=== PATIENT | female | born 1970 | race Caucasian/White ===

== ENCOUNTER 2024-10-15 14:03 | Emergency (ER) | payer OTHER, SELFPAY ==
--- OUTSIDE RECORDS SUMMARY | 2024-10-15 14:06 | XMS_ITS | Clinical Summary ---
Author Organization [facility] Address [address] [place] [address] Care Team Providers Care District Manager Primary Care Sales Name Role Phone Demetrice Hyde M.D. Primary Care Provider + Source Comments Patient records contain information from all sites at [facility]. For routine questions regarding patient records, call [phone] during business hours, M-F 8:00 AM - 5:00 PM Central Time. Record requests for emergency care only can be directed to [phone] at any time.[facility] Allergies Active Allergy Reactions Criticality Noted Date Comments Omeprazole Nausea Only,GI intolerance Medium 11/20/2011 Heath listed constipation as additional reaction. Medications MULTIVITAMIN ORAL Take 1 tablet by mouth daily. 0 Active Lactobacillus acidophilus capsule Take 1 capsule by mouth daily. Active insulin syringe-needle U-100 1 mL 31 gauge x 5/16 syringe Inject 1 Injection as directed daily. For emergency use in case of insulin pump malfunction. Type 1 DM 10 each 3 9 Active glucose 4 gram chewable tablet Chew 4 g as needed for low blood sugar. Active Guardian 4 Transmitter device 3 Active raloxifene (EVISTA) 60 mg tablet TAKE ONE TABLET BY MOUTH EVERY DAY . 90 tablet 3 4 Active levETIRAcetam (KEPPRA) 750 mg tabletIndications :Seizure Disorder (HCC) Take 1 tablet (750 mg total) by mouth every morning. 90 tablet 3 4 12/21/19 25 Active levETIRAcetam (KEPPRA) 1,000 mg tabletIndications :Seizure Disorder (HCC) Take 1 tablet (1,000 mg total) by mouth every evening. 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 1500 test 3 4 04/11/20 25 Active lisinopriL 10 mg tabletIndications :Hypertension Essential Primary Take 1 tablet (10 mg total) by mouth daily. 90 tablet 3 4 Active insulin aspart U-100 (NovoLOG U-100 Insulin aspart) 100 unit/mL vial USE UP TO 60 UNITS PER DAY VIA PUMP 54 mL 3 4 Active Active Problems Problem Noted Date Diagnosed Date Atrophy Vagina Due To Estrogen Deficiency 2022 Overview (07/29/2023): Related to menopause and raloxifene use. Introitus is becoming more narrowed each consecutive year. Vaginal tissue is erythematous, thin due to this. Discussed the option of using Replens vaginal moisturizer and dilators for management of this. Recommended that she purchase a medium set of dilators and try to use them said she is able to insert a #5 or #6 without difficulty or discomfort. Capsulitis Adhesive Shoulder Left 10/22/2020 Mass Inguinal 07/09/2020 Overview (08/26/2022): Located in the crease of the right inner, upper leg. S/p referral to general surgery, ultrasound ordered to evaluate, findings consistent with lipoma, no change in size, no treatment needed. Cancer Breast Family History 07/09/2020 Overview (08/26/2022): And dense breasts. Biopsy of lesion in March 2020 showed a benign fibroadenoma. She follows with the breast clinic in [place]. Breast clinic recommendations include: 1. Clinical breast exam every six months (last in May 2022) 2. Annual screening mammogram with tomosynthesis 3. Annual screening MRI 4. Start raloxifene - currently taking this 5. 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 Given this history, I would recommend yearly Pap smears for at least 20 years post procedure (until 2027) and then every 3 years after that. Assessment & Plan (01/19/2024 10:26 AM CDT): Continue to follow with gynecology Assessment & Plan (06/03/2023 8:20 AM CDT): Continue with annual pap with breast clinic Cervical Dysplasia Personal History 03/29/2018 Overview (08/20/2021): And history of VAIN 1. See plan noted above. Dyspareunia Female Organic 03/29/2018 Overview (08/26/2022): Related to atrophy. Stable, she does not want to use estrogen of any kind at this time. Discussed the option of laser therapy that can be done at [facility] in [place] but payment out of pocket is required and a series of treatments is needed. She is still considering this and will let us know if she would like to move forward. I would also want to check with ADAPTIVE PHYSICAL EDUCATION TEACHER Oncology regarding how that would affect surveillance in light of her history of VAIN prior to proceeding. In the meantime, she will resume use of Replens. Rx for this was sent today. Menopause 03/12/2014 Overview (08/26/2022): These symptoms are improved and are manageable. Bone density testing was normal. Seizure Disorder 11/27/2010 Overview (08/20/2021): Follows with neurology for this. Assessment & Plan (01/19/2024 10:26 AM CDT): Form filled out today after verifying her history of being seizure-free since 2020. We will fax it to the necessary parties, and a copy was provided. Plan to establish with new neurologist in February. Assessment & Plan (06/03/2023 8:19 AM CDT): Continue Keppra per neurology Diabetes Mellitus Type 1 Without Complication Overview (01/19/2024): Type I [insulin dependent] [IDDM] [juvenile type] Overview: - Diagnosed in 1990 at age 20. - On MDI with good control but frequent hypoglycemia. - On pump since early 2006. - Excellent control. - No complications. Assessment & Plan (01/19/2024 10:26 AM CDT): Continue to follow with endocrinology Assessment & Plan (06/03/2023 8:19 AM CDT): Continue to follow with endocrinology Gastroesophageal Reflux Disease Without Esophagi tis 04/22/2010 Overview (12/01/2017): Overview: EGD 04/2010 normal Resolved Problems Problem Noted Date Diagnosed Date Resolved Date Diabetes Mellitus Type 1 Wit h Other Diabetic Neurologic Complication 10/22/2020 08/20/2021 Sprain Wrist Initial Left 06/28/2019 Fracture Radius Neck Closed Initial Left 06/28/2019 06/03/2023 Benign neoplasm of breast 12/01/2017 Overview (12/01/2017): Overview: fibroadenoma, with atypia . Needs annual mammograms and breast MRI Tumor Bladder 01/04/2015 12/01/2017 Overview (03/03/2017): Tumor Bladder Cervical Dysplasia Personal History 01/09/2014 12/01/2017 Dyspareunia Female 01/09/2014 8 Neoplasia Vagina Intraepithe lial (VAIN) Pers Hx 01/09/2014 12/01/2017 Fibrocystic Breast 11/27/2010 8 Goiter 06/11/2010 12/01/2017 Overview (12/01/2017): Overview: Small symmetrical goiter ~30gms. Encounters Date Type Department Care Team Description 09/21/2024 Orders Only Division of Endocrinology in [place], [place] [address] [place] [phone] Praveena Monge M.B., B.Ch., Ph.D. Diabetes Mellitus Type 1 Without Complication (HCC) (Primary Dx) 08/22/2024 Clinical Communication Breast Diagnostic Clinic in [place], [place] [address] [place] [phone] Krista Camacho M.D. 08/12/2024 Clinical Communication Division of Endocrinology in [place], [place] [address] [place] [address] Praveena Monge M.B., B.Ch., Ph.D. [employer] 08/11/2024 8:00 AM CDT Immunization Department of [facility], [facility], in [place], [place] [address] [place] [phone] Need Vaccine Immunization (Primary Dx) 07/29/2024 8:30 AM CDT Office Visit Department of Obstetrics and Gynecology in [place], [place] [address] [phone] Marva Alexander CNM, D.N.P. Preventive Gynecological Exam (Primary Dx); Atrophy Vagina Due To Estrogen Deficiency; Cancer Breast Family History; Cervical Dysplasia Personal History; Neoplasia Vaginal Intraepithelial Personal History 07/28/2024 Refill Department of Internal Medicine in [place], [place] [address] [place] [phone] Demetrice Hyde M.D. Med Refill 07/26/2024 Refill Department of Family Medicine, [facility], in [place], [place] [address] [place] [address] [place] [phone] Demetrice Hyde M.D. Med Refill from Last 3 Months Immunizations Name Administration Dates Next Due H1N1 Inj 09/21/2009 HepB (discontinued) adolesce nt/high risk 02/28/2013,11/26/2012,09/03/2012 Influenza Split 08/12/2008 Influenza TIV (IM) 07/16/2011, 0,06/22/2009,2007 Influenza, Injectable, Quadrivalent 07/19/2019,0 07/10/2014 Influenza, Unspecified 07/22/2018,2016,07/28/2016,2014,07/11/2013,07/12/2012,07/08/2011 PCV20 06/03/2023 PPSV23 02/24/2022,09/05/2011,08/12/2008 RZV (SHINGRIX) 12/15/2022, 3(Deferred: Other - has not recieved 2nd dose),09/10/2022 SARS-COV-2 (COVID-19) - MODE RNA (12 YEARS AND OLDER) Fall Seasonal 08/11/2024,07/28/2023 SARS-COV-2 (COVID-19) - MODE RNA BIVALENT(Discontinued) 07/01/2022 SARS-COV-2 (COVID-19) - MODERNA(Discontinued) 08/09/2021,01/21/2021,12/19/2020 Td, (Adult) Unspecified 10/12/2004 Tdap 10/21/2021,09/05/2011 influenza trivalent vaccine (6 months and older)(PF) 07/29/2024 influenza vaccine quad (FLUZONE/FLUARIX) (6 months and older)(PF) 07/28/2023,08/11/2022,07/30/2021,2019,07/10/2014 Family History Medical History Relation Name Comments Coronary artery disease Father Galo Avilez H eart attack Prostate cancer Father Galo Avilez Breast cancer Maternal Cousin 1 Cataracts Maternal Grandfather Hypertension Maternal Grandfather Hypertension Maternal Grandmother Cataracts Mother Edelmira Avilez Clotting disorder Mother Edelmira Avilez Diabetes Mother Edelmira Avilez Type 2 Tanya betes Hypertension Mother Edelmira Avilez Thyroid disease Mother Edelmira Avilez Uterine cancer Mother Edelmira Avilze Breast cancer Other 1 Cancer Other 4 Cataracts Paternal Grandfather Nando Avilez Coronary artery disease Paternal Grandfather Nando julian Congestive heart failure Diabetes Paternal Grandfather Nando Avilez Hypertension Paternal Grandfather Nando Avilez Did r eceive treatment Cataracts Paternal Grandmother Hypertension Paternal Grandmother Breast cancer Sister [address] Dr. Caryn Avilez Finished treatment and cancer free Hypertension Sister [address] Dr[address] Caryn Avilez Hypothyroidism Sister [address] Dr[address] Caryn Avilez Thyroid disease Sister [address] Dr[address] Caryn Avilez Breast cancer Sister 2 Zuleyma Duc Finished tr eatment and cancer free Clotting disorder Sister 2 Zuleyma Cobbsedrick pulmona ry blood clot Diabetes Sister 2 Zuleyma Duc Type 2 Relation Name Status Comments Father Galo Avilez (Age 77) d. NM Father's Brother d. cardiac related Maternal Cousin 1 Alive Maternal Cousin 2 Alive possibly B RCA positive Maternal Grandfather Maternal Grandmother Mother Edelmira Avilez Alive Mother's Brother d. cardiac related Niece 1 Alive Niece 2 Alive Other 1 Paternal Great Aunt Other 2 Other 3 Other 4 Alive strong fmhx of cancer on her side of family Paternal Grandfather Nando Avilez Paternal Grandmother Sister [address] Dr. Caryn Avilez Alive negati ve genetic testing Sister 2 Zuleyma Cobbsedrick Alive Social History Tobacco Use Types Packs/Day Years Used Date Smoking Tobacco: Never Passive Smoke Exposure: Never Smokeless Tobacco: Never Tobacco Cessation:Counseling Given: Not Answered Alcohol Use Standard Drinks/Week Comments Never 0 (1 standard drink = 0.6 oz pur e alcohol) [facility] Utilities Answer Date Recorded In the past 12 months has th e Friends Around, gas, oil, or water [employer] threatened to shut off services in your home? No 01/19/2024 Humiliation, Afraid, Rape, and Kick questionnair e Answer Date Recorded Within the last year, have y ou been afraid of your partner or ex-partner? No 11/21/2022 Within the last year, have y ou been humiliated or emotionally abused in other ways by your partner or ex-partner? No Within the last year, have y ou been kicked, hit, slapped, or otherwise physically hurt by your partner or ex-partner? No 11/21/2022 Within the last year, have y ou been raped or forced to have any kind of sexual activity by your partner or ex-partner? No 11/21/2022 Social Connection and Isolat ion Panel [NHANES] Answer Date Recorded In a typical week, how many times do you talk on the phone with family, friends, or neighbors? More than three times a week 11/21/2022 How often do you get togethe r with friends or relatives? Once a week 11/21/2022 How often do you attend chur ch or latter-day services? Never 11/21/2022 Do you belong to any clubs o r organizations such as jehovah's witness groups, unions, fraternal or athletic groups, or school groups? No 11/21/2022 How often do you attend meet ings of the clubs or organizations you belong to? Never 11/21/2022 Are you , , di vorced, , never , or living with a partner? 11/21/2022 AUDIT-C Answer Date Recorded Q1: How often do you have a drink containing alc ohol? Never 11/21/2022 Average Number of Drinks Not on file 023 Frequency of Binge Drinking Not on file 11/12 Overall Financial Resource Strain (CARDIA) Answe r Date Recorded How hard is it for you to pa y for the very basics like food, housing, medical care, and heating? Not hard at all 11/21/2022 PHQ-2 Answer Date Recorded PHQ-2 Score 0 07/29/2024 [facility] - Occupational Stress Questionnaire Answer Date Recorded Do you feel stress - tense, restless, nervous, or anxious, or unable to sleep at night because your mind is troubled all the time - these days? Not at all 11/21/2022 Exercise Vital Sign Answer Date Recorde d On average, how many days pe r week do you engage in moderate to strenuous exercise (like a brisk walk)? 7 days 01/19/2024 On average, how many minutes do you engage in exercise at this level? 30 min 01/19/2024 Hunger Vital Sign Answer Date Recorded Within the past 12 months, y ou worried that your food would run out before you got the money to buy more. Never true 01/19/20 24 Within the past 12 months, t he food you bought just didn't last and you didn't have money to get more. Never true 01/19/2024 PRAPARE - Transportation Answer Date Re corded In the past 12 months, has l ack of transportation kept you from medical appointments or from getting medications? No 06/2024 In the past 12 months, has l ack of transportation kept you from meetings, work, or from getting things needed for daily living? No 01/19/2024 Depression Answer Date Recor ded PHQ-9 Total Score (max 27) 0 07/29 Nutrition Answer Date Recorded On average, how many serving s of fruits and vegetables do you eat per day (serving size is equal to 1 cup or approximately the size of a tennis ball)? 5 or more 01/19/2024 Dental Answer Date Recorded Dental: Regular Dentist Yes 11/29/19 Employment Answer Date Recorded Employment status Employed and actively working without restrictions 01/19/2024 Housing Stability Answer Date Recorded What is your living situation today? [facility] 01/19/2024 Education Answer Date Recorded What is the highest level of school you have completed or the highest degree you have received? Bachelor's degree (e.g., BA, AB, BS) 11/03/2019 Comments No Sex and Gender Information Value Date Recorded Sex Assigned at Female 12/01/2017 8:02 AM [facility]ER Legal Sex Female 12:21 PM T[facility]ER Gender Identity Female 12/01/2017 8:02 AM TALCER Sexual Orientation Straight 12/01/2017 8: 02 AM TALCER Occupation Industry Job Start Date Job End Date [employer] Not on file Not on file N ot on file Last Filed Vital Signs Vital Sign Reading Time Taken Comments Blood Pressure 118/75 07/29/2024 8:06 AM CDT Pulse 64 05/24/2024 3:10 PM CDT Temperature 36.3 C (97.4 F) 01/19/2024 7:41 AM CDT Respiratory Rate 20 09/15/2023 9:22 AM TALCER Oxygen Saturation 99% 09/15/2023 9:22 AM TALCER Inhaled Oxygen Concentration - - Weight 73.1 kg (161 lb 2.5 oz) 07/29/2024 8:06 A M CDT Height 168.5 cm (5' 6.34) 07/29/2024 8:06 AM CD T Body Mass Index 25.75 07/29/2024 8:06 AM CDT Plan of Treatment Upcoming Encounters Date Type Department Care Team (Late st Contact Info) Description 10/21/2024 9:15 AM TALCER Comprehensive Visit Department of Ophthalmology in [place], [place] [address] [place] [phone] Boubacar Alvarado M.D. [address] [phone] 10/25/2024 7:30 AM TALCER Appointment Department of Laboratory Medicine in [place], [place] [address] [phone] Praveena Monge M.B., B.Ch., Ph.D. [address] [place] [phone] 10/25/2024 8:10 AM TALCER Appointment Department of Laboratory Medicine in [place], [place] [address] [phone] Praveena Monge M.B., B.Ch., Ph.D. [address] [place] [phone] 11/04/2024 10:30 AM TALCER Office Visit Division of Endocrinology in [place], [place] [address] [place] [phone] Praveena Monge M.B., B.Ch., Ph.D. [address] [place] [phone] 11/04/2024 1:00 PM TALCER Clinical Support Department of Nutrition and Diabetes Education in [place], [place] [address] [place] [phone] Praveena Monge M.B., B.Ch., Ph.D. [address] [place] [phone] Luzma Portillo R.N. [address] [place] [phone] 11/15/2024 7:00 AM TALCER Clinical Communication Virtual Review in [place], [place] [address] [place] [phone] 11/18/2024 7:30 AM TALCER Appointment Department of Radiology, [facility], in [place], [place] [address] [place] [phone] Krista Camacho M.D. [address] [place] [phone] 11/22/2024 3:30 PM TALCER Office Visit Breast Diagnostic Clinic in [place], [place] [address] [place] [phone] Krista Camacho M.D. [address] [place] [phone] Health Maintenance Due Date Last Done Comments CT Colonography 1972 FIT 1972 Hepatitis C Screening 1972 Diabetes Education 10/15/2021 10/15/2020, 04/20/2014 Diabetic Office Visit with Foot Exam 06/03/2024 06/03/2023, 06/03/2023, 06/24/2022, Additional history exists Dilated Eye Exam 09/28/2024 09/28/2023, , 10/10/2021, Additional history exists Hemoglobin A1C 11/24/2024 05/24/2024, 02/09, 11/12/2023, Additional history exists Visit: Chronic Disease, age 18+ 01/18/2025 01/19/2024, 06/03/2023 Urine Albumin 02/21/2025 02/22/2024, 04/2023, 11/21/2021, Additional history exists Creatinine Level (Kidney Function Test) 05/10/2025 05/10/2024, 02/22/2024, 03/18/2023, Additional history exists Potassium Level 05/10/2025 05/10/2024, 05/0 11/2021, 08/13/2021, Additional history exists Sodium Level 05/10/2025 05/10/2024, 050 11/2021, 08/13/2021, Additional history exists Mammogram 06/03/2025 06/03/2024, 02/2024, 05/21/2023, Additional history exists Office Visit for Blood Pressure Check / Re-check 07/29/2025 07/29/2024 Cologuard 08/30/2025 08/30/2022, 08/26/2022 Colonoscopy 09/15/2026 09/15/2023, 09/15/2023 Colorectal Cancer Screening 09/15/2026 Lipid (Cholesterol) Screening 02/21/2029 02/22/2024, 03/18/2023, 02/27/2022, Additional history exists DTaP,Tdap,and Td Vaccines (3 - Td or Tdap) 10/21/2031 10/21/2021, 09/05/2011, 10/12/2004 Hepatitis B Vaccines Completed 02/28/2013, 11/26/2012, 09/03/2012 HIV Screening Completed 05/17/2019 Zoster Vaccines Completed 12/15/2022, 09/10/2022 Pneumococcal vaccine (50+ years) Completed 06/03/2023, 02/24/2022, 09/05/2011, Additional history exists Depression Screening (Annual PHQ-2) Completed 07/29/2024, 01/19/2024 Influenza Vaccine Completed 07/29/2024, , 08/11/2022, Additional history exists COVID-19 Vaccine Completed 08/11/2024, , 07/01/2022, Additional history exists IPV Vaccines Aged Out No longer eligi ble based on patient's age to complete this topic Medical Devices Implanted Type Area Property Site Manager Device Identifier Shelf Expiration Date Model / Serial / Lot Clp Rsp Hmst Endo 235 - [id number] - [id number] Implanted:Qty: 1 on 09/15/2023 by Santy Canela M.D. at [facility] Silver/[employer]onda Hardware e.g. pins/screw s/rods N/A: Descending Colon [employer] [id number] 03/26/2026 [id number] 10 / [id number] Clp Rsp Hmst Endo 235 - [id number] - [id number] Implanted:Qty: 1 on 09/15/2023 by Santy Canela M.D. at [facility] Silver/[employer] Hardware e.g. pins/screw s/rods N/A: Descending Colon [employer] [id number] 03/26/2026 [id number] 10 / [id number] Imaging Marker Imaging Marker Bilateral: Breast Description:Markers in both breasts. Procedures Procedure Name Priority Date/Time Associated Diagnosis Comments THINPREP W/HPV CO-TEST SCREEN Routine 07/29/2024 9:15 AM CDT Preventive Gynecological Exam Cervical Dysplasia Personal History Neoplasia Vaginal Intraepithelial Personal History HPV VAGINAL DETECT / GENOTYPING PCR Routine 07/29/2024 9:15 AM CDT BI BREAST SCREENING BILATERAL WITH TOMOSYNTHESIS RAD - Routine (most inpatients and all outpatients) 06/03/2024 7:19 AM CDT Screening Mammogram Average Risk Patient HEMOGLOBIN A1C, B Routine 05/24/2024 4:0 5 PM CDT Diabetes Mellitus Type 1 Without Complication (HCC) BASIC METABOLIC PANEL, S/P Routine 05/10/2024 7:42 AM CDT Hypertension Essential Primary ALBUMIN, RANDOM, U Routine 02/22/2024 12:13 PM CDT Diabetes Mellitus Type 1 Without Complication (HCC) LIPID PANEL, S Routine 02/22/2024 11:58 AM CDT Diabetes Mellitus Type 1 Without Complication (HCC) COLONOSCOPY Routine 09/15/2023 7:41 AM T[facility]ER Screening Colon Cancer Average Risk COLOGUARD Routine 08/26/2022 5:45 AM TALCER Screening Cancer Colon HIV-1 P24 AG, HIV-1/2 AB SCRN, P Routine 05/17/2019 7:22 AM CDT Screening Test Laboratory from Last 3 Months or Most Recently Relevant to Health Maintenance Results * HPV Vaginal Detection / Genotyping PCR (07/29/2024 9:15 AM CDT) HPV High Risk type 16, PCR Negative Negative 08/02/2024 2:21 PM CDT [facility] HPV High Risk type 18, PCR Negative Negative 08/02/2024 2:21 PM CDT [facility] HPV other High Risk types, PCR Negative Negative 08/02/2024 2:21 PM CDT [facility] Comment: The following Other High Risk HPV types were not detected: 31, 33, 35, 39, 45, 51, 52, 56, 58, 59, 66, and 68 This test was ordered in the context of a [facility] ADAPTIVE PHYSICAL EDUCATION TEACHER Cytology case; this result should be interpreted within the context of the ADAPTIVE PHYSICAL EDUCATION TEACHER cytology report. ----ADDITIONAL INFORMATION---- Testing was performed using the kanchan HPV assay ([employer] This report is intended for use in clinical monitoring and management of patients. It is not intended for use in medical-legal applications. This test has been modified from the customer experience associate's instructions. Its performance characteristics were determined by [facility] in a manner consistent with CLIA requirements. This test has not been cleared or approved by the U.S. Food and Drug Administration. 07/29/2024 9:15 AM CDT 08/01/2024 8:17 AM CDT Marva Alexander CNM, D.N.P. LAB MICROBIOLOGY - GE NERAL ORDERABLES Final Result [facility] [address] [place] [address] [facility] [address] [place] [address] [place] [address] * ThinPrep w/HPV Co-Test Screen (07/29/2024 9:15 AM CDT) 08/03/2024 4:22 PM CDT [facility] Report electronically signed by ELENITA Chapa (ASCP) I verify that I have examined all relevant slides/materials for the specimen(s) and rendered or confirmed the diagnosis. 08/03/2024 4:22 PM CDT [facility] Gross Description Received specimen in a ThinPrep vial. 08/03/2024 4:22 PM CDT [facility] Pap Test Source Vaginal 4:22 PM CDT [facility] Clinical History wwe 08/03/20 24 4:22 PM CDT [facility] Menstrual Status(LMP, PM, ) PM 08/03/2024 4:22 PM CDT [facility] Hormone Therapy/Contracep tives NO 08/03/2024 4:22 PM CDT [facility] Disclaimer High risk HPV testing, Real-Time Polymerase Chain Reaction (PCR) was performed on the liquid-based cytology specimen at [facility] (CLIA #[id number]), [address] [place] [address]. This test has been modified from the customer experience associate's instructions. Its performance characteristics were determined by [facility] in a manner consistent with CLIA requirements. This test has not been cleared or approved by the U.S. Food and Drug Administration. 08/03/2024 4:22 PM CDT [facility] Interpretation Vaginal (ThinPrep): Satisfactory for Evaluation Excessive cytolysis or autolysis Negative for Intraepithelial Lesion or Malignancy High Risk HPV testing results are NEGATIVE. See specific genotype results below. HPV with Genotyping, PCR, ThinPrep: HPV High Risk Type 16, PCR: NEGATIVE HPV High Risk Type 18, PCR: NEGATIVE HPV other High Risk types, PCR: NEGATIVE Other High Risk HPV types include: 31, 33, 35, 39, 45, 51, 52, 56, 58, 59, 66, and 68. 08/03/2024 4:22 PM CDT [facility] Thin Prep Vial (Vagina) 07/29/2024 9:15 AM CDT 08/01/2024 8:17 AM CDT Marva Alexander CNM, D.N.P. LAB PAP PATHDX ORDERA BLES Final Result Performing Organization Address City/[facility]/ZIP Co de Phone Number [facility] [address] [place] [address], [place] [facility] [address] [facility] [address] [place] [address] * BI Breast Screening Bilateral with Tomosynthesis (06/03/2024 7:19 AM CDT) Anatomical Region Laterality Modality Breast, Breast Imaging RST L OS, Breast Imaging ARZ LOS, Breast Imaging FLA LOS Bilateral Mammography Impressions 06/03/2024 8:56 AM CDT Negative. RECOMMENDATION: Annual Screening Mammogram ASSESSMENT: BI-RADS: 1: Negative. Narrative 06/03/2024 8:56 AM CDT EXAM: BI BREAST SCREENING BILATERAL WITH TOMOSYNTHESIS Current study was evaluated with a Computer Aided Detection (CAD) system. INDICATION: Screening mammogram. COMPARISON: Prior exam(s) were available and reviewed for comparison. DENSITY: d. The breast(s) are extremely dense, which lowers the sensitivity of mammography. FINDINGS: No findings of malignancy. No significant change since prior exam. Procedure Note Mari Michaels M.D. - 06/03/2024 EXAM: BI BREAST SCREENING BILATERAL WITH TOMOSYNTHESIS Current study was evaluated with a Computer Aided Detection (CAD) system. INDICATION: Screening mammogram. COMPARISON: Prior exam(s) were available and reviewed for comparison. DENSITY: d. The breast(s) are extremely dense, which lowers thesensitivity of mammography. FINDINGS: No findings of malignancy. No significant change since priorexam. IMPRESSION: Negative. RECOMMENDATION: Annual Screening Mammogram ASSESSMENT: BI-RADS: 1: Negative. us Krista Camacho M.D. IMG BI PROCEDURES Final Result * (ABNORMAL) Hemoglobin A1c (05/24/2024 4:05 PM CDT) Hemoglobin A1c, B 5.9(H) 4.0 - 5.6 % 05/24/2024 4:50 PM CDT DTL Comment: Hemoglobin A1c values of 5.7-6.4 percent indicate an increased risk for developing diabetes mellitus. In diabetic patients, HbA1c goals should be discussed with healthcare provider. Blood (Blood, Venous) 05/24/2024 4:05 PM CDT 05/24/2024 4:36 PM CDT Praveena Gmaboa, B.Ch., Ph.D. LAB BLOOD ADD-ON Final Result [facility] [address] [place] [address], [facility] [address] [place] [address] * (ABNORMAL) Basic Metabolic Panel (05/10/2024 7:42 AM CDT) Potassium, P 5.0 3.6 - 5.2 mmol/L 05/10/2024 10:09 AM CDT OWAT Sodium, P 141 135 - 145 mmol/L 05/10/2024 10:09 AM CDT OWAT Chloride, P 106 98 - 107 mmol/L 05/10/2024 10:09 AM CDT OWAT Bicarbonate, P 26 22 - 29 mmol/L 05/10/2024 10:09 AM CDT OWAT Anion Gap, P 9 7 - 15 05/10/2024 10:09 AM CDT OWAT BUN (Blood Urea Nitrogen), P 16 6 - 21 mg/dL 05/10/2024 10:09 AM CDT OWAT Creatinine 0.66 0.59 - 1.04 mg/dL 05/10/2024 10:09 AM CDT OWAT Estimated GFR (eGFR) >90 >=60 mL/min/BSA 05/10/2024 10:09 AM CDT OWAT Comment: Estimated GFR calculated using the 2020 CKD_EPI creatinine equation. Calcium, Total, P 9.1 8.6 - 10.0 mg/dL 05/10/2024 10:09 AM CDT OWAT Glucose, P 144(H) 70 - 140 mg/dL 05/10/2024 10:09 AM CDT OWAT Blood (Blood, Venous) 05/10/2024 7:42 AM CDT 05/10/2024 7:43 AM CDT us Demetrice Hyde M.D. LAB BLOOD ADD-ON Final R esult Performing Organization Address City/[facility] Co de Phone Number [facility] [address] [address], [place] OWAT [facility] in [place] [address] [place] [address] * (ABNORMAL) Albumin, Random, Urine (02/22/2024 12:13 PM CDT) Albumin, Random, U <5.0 mg/L 2023 8:47 AM CDT DTL Comment: ----ADDITIONAL INFORMATION---- This test has been modified from the customer experience associate's instructions. Its performance characteristics were determined by [facility] in a manner consistent with CLIA requirements. This test has not been cleared or approved by the U.S. Food and Drug Administration. Creatinine 17 mg/dL 02/22/2024 1:57 PM CDT DTL Albumin/Creatinine Ratio <29(H) <25 mg/g 02/23/2024 8:47 AM CDT DTL Comment: This ratio may not correspond with the reference range because one or both of the values used to calculate the ratio was above or below the quantification limits. Urine (Urine, Midstream) 02/22/2024 12:13 PM CDT 02/22/2024 1:51 PM CDT us Praveena Gamboa, B.Ch., Ph.D. LAB URINE ORDERA BLES Final Result Performing Organization Address City/[facility]/ZIP Co de Phone Number [facility] [address] [place] [address], [facility] DTL [facility] [address] [place] [address] * Lipid Panel (02/22/2024 11:58 AM CDT) Triglycerides 42 mg/dL 02/22/2024 1:06 PM CDT DTL Comment: ----REFERENCE VALUE---- Normal: <150 mg/dL Borderline High: 150-199 mg/dL High: 200-499 mg/dL Very High: > or =500 mg/dL Cholesterol, Total 136 mg/dL 2023 1:06 PM CDT DTL Comment: ----REFERENCE VALUE---- Desirable: < 200 mg/dL Borderline High: 200 - 239 mg/dL High: > or = 240 mg/dL Cholesterol, LDL, Calculated 42 mg/dL 02/22/2024 1:06 PM CDT DTL Comment: ----REFERENCE VALUE---- Desirable: <100 mg/dL Above Desirable: 100-129 mg/dL Borderline High: 130-159 mg/dL High: 160-189 mg/dL Very High: >=190 mg/dL ----ADDITIONAL INFORMATION---- LDL cholesterol calculated using the Keating/NIH equation. Cholesterol, HDL, S 84 >=50 mg/dL 02/22/2024 1:06 PM CDT DTL Cholesterol, Non-HDL, Calculated 52 mg/dL 02/22/2024 1:06 PM CDT DTL Comment: ----REFERENCE VALUE---- Desirable: <130 mg/dL Above Desirable: 130-159 mg/dL Borderline High: 160-189 mg/dL High: 190-219 mg/dL Very High: > or =220 mg/dL Fasting (8 HR or more) No 02/22/2024 12:37 PM CDT DTL Blood (Blood, Venous) 02/22/2024 11:58 AM CDT 02/22/2024 12:37 PM CDT Praveena Gamboa, B.Ch., Ph.D. LAB BLOOD ADD-ON Final Result [facility] [address] [place] [address], [place] DTL [facility] [address] [place] [address] * Cologuard-Sent Out Lab (08/26/2022 5:45 AM TALCER) Result Negative Negative 08/30/2022 9:22 AM TALCER EXLI Comment: NEGATIVE TEST RESULT. A negative Cologuard result indicates a low likelihood that a colorectal cancer (CRC) or advanced adenoma (adenomatous polyps with more advanced pre-malignant features) is present. The chance that a person with a negative Cologuard test has a colorectal cancer is less than 1 in 1500 (negative predictive value >99.9%) or has an advanced adenoma is less than 5.3% (negative predictive value 94.7%). These data are based on a prospective cross-sectional study of 10,000 individuals at average risk for colorectal cancer who were screened with both Cologuard and colonoscopy. (Donald Solares al, N Engl J Med 2014;370(14):2493-7877) The normal value (reference range) for this assay is negative. COLOGUARD RE-SCREENING RECOMMENDATION: Periodic colorectal cancer screening is an important part of preventive healthcare for asymptomatic individuals at average risk for colorectal cancer. Following a negative Cologuard result, the [place] Cancer Society and U.S. Multi-Society Task Force screening guidelines recommend a Cologuard re-screening interval of 3 years. References: [place] [employer] Society Guideline for Colorectal Cancer Screening: https://www.cancer.org/cancer/khrnv-ubhuks-mqiyvh/detection- diagnosis-staging/acs-recommendations.html.; Ponce PEACOCK, Umang STRONG, Taty StoutK, Colorectal Cancer Screening: Recommendations for Physicians and Patients from the U.S. Multi-Society Task Force on Colorectal Cancer Screening , Am J Gastroenterology 2017; 112:8980-0149. TEST DESCRIPTION: Composite algorithmic analysis of stool DNA-biomarkers with hemoglobin immunoassay. Quantitative values of individual biomarkers are not reportable and are not associated with individual biomarker result reference ranges. Cologuard is intended for colorectal cancer screening of adults of either sex, 45 years or older, who are at average-risk for colorectal cancer (CRC). Cologuard has been approved for use by the U.S. FDA. The performance of Cologuard was established in a cross sectional study of average-risk adults aged 50-84. Cologuard performance in patients ages 45 to 49 years was estimated by sub-group analysis of near-age groups. Colonoscopies performed for a positive result may find as the most clinically significant lesion: colorectal cancer [4.0%], advanced adenoma (including sessile serrated polyps greater than or equal to 1cm diameter) [20%] or non- advanced adenoma [31%]; or no colorectal neoplasia [45%]. These estimates are derived from a prospective cross-sectional screening study of 10,000 individuals at average risk for colorectal cancer who were screened with both Cologuard and colonoscopy. (Donald Solares al, N Engl J Med 2014;370(14):0636-2232.) Cologuard may produce a false negative or false positive result (no colorectal cancer or precancerous polyp present at colonoscopy follow up). A negative Cologuard test result does not guarantee the absence of CRC or advanced adenoma (pre-cancer). The current Cologuard screening interval is every 3 years. ([place] Cancer Society and U.S. Multi-Society Task Force). Cologuard performance data in a 10,000 patient pivotal study using colonoscopy as the reference method can be accessed at the following location: www.[employer]/results. Additional description of the Cologuard test process, warnings and precautions can be found at www.[employer].com. Stool (Stool) 08/26/2022 5:4 5 AM TALCER 08/27/2022 12:31 PM TALCER us Angelique Lopez M.D. LAB BODY FLUIDS AND STOOL S ORDERABLES Final Result [facility] [address] [place] [address] EXLI [employer] [address] [facility], [address] [place] [address] * HIV-1 p24 Ag, HIV-1/2 Ab Scrn, P (05/17/2019 7:22 AM CDT) HIV Ag/Ab Screen, P Negative Negative 05/17/2019 4:31 PM CDT Comment: Negative result does not rule out HIV infection. If exposure to HIV infection occurred <14 days ago, contact the laboratory to request addition of HIV-1 RNA detection / quantification test. HIV-1 p24 Ag Screen, P Negative Negative 05/17/2019 4:31 PM CDT Comment: Negative result does not rule out HIV infection. If exposure to HIV infection occurred <14 days ago, contact the laboratory to request addition of HIV-1 RNA detection / quantification test. HIV-1 Ab Screen, P Negative Negative 2018 4:31 PM CDT Comment: Negative result does not rule out HIV infection. If exposure to HIV infection occurred <14 days ago, contact the laboratory to request addition of HIV-1 RNA detection / quantification test. HIV-2 Ab Screen, P Negative Negative 2018 4:31 PM CDT Comment: Negative result does not rule out HIV infection. If exposure to HIV infection occurred <14 days ago, contact the laboratory to request addition of HIV-1 RNA detection / quantification test. Blood (Blood, Venous) 05/17/2019 7:22 AM CDT 05/17/2019 3:13 PM CDT Umesh Mathis M.D. LAB MICROBIOLOGY - BLOOD ORDERA BLES Final Result [facility] [address] [place] [address], [facility] from Last 3 Months or Most Recently Relevant to Health Maintenance Insurance [id number] [place] [id number] [employer] Care Teams District Manager Primary Care Sales Relationship Specialty Start Date End Date Demetrice Hyde M.D. [address], [place] [phone] PCP - General 11/06/22
--- OUTSIDE RECORDS SUMMARY | 2024-10-15 14:06 | XMS_ITS | Encounter Summary ---
Author Organization [facility] Address [address] [place] [address] Care Team Providers Care Director Public Name Role Phone Demetrice Hyde M.D. Primary Care Provider + Reason for Referral * MRI/CAT/PET Scan (Routine) - Authorized Specialty Diagnoses / Procedures Referred By Contac t Referred To Contact Radiology Diagnoses Cancer Breast Family History Mammographic Extreme Density, Bilateral Breasts Procedures MR Breast Bilateral without and with IV Contrast MS MRI BREAST WOW CNTRST W/CAD BILAT Krista Camacho M.D. [address] [place] [phone] Phone: tel: fax: [facility] Referral ID Status Reason Start Date Expiration Date V isits Requested Visits Authorized [id number] Authorized 08/24/2024 08/24/2025 1 1 BLE OPERATOR Encounter Details Date Type Department Care Team (Late st Contact Info) Description 08/22/2024 Clinical Communication [facility] in [place], [place] [address] [place] [phone] Krista Camacho M.D. [address] [place] [phone] Social History Tobacco Use Types Packs/Day Years Used Date Smoking Tobacco: Never Passive Smoke Exposure: Never Smokeless Tobacco: Never Alcohol Use Standard Drinks/Week Comments Never 0 (1 standard drink = 0.6 oz pur e alcohol) [facility] Utilities Answer Date Recorded In the past 12 months has th e electric, gas, oil, or water company threatened to shut off services in your [...] often do you attend chur ch or congregational services? Never 11/21/2022 Do you belong to any clubs o r organizations such as sikhism groups, unions, fraternal or athletic groups, or [...] Answer Date Recorded PHQ-2 Score 0 07/29/2024 [facility] [employer] ional [facility] - Occupational Stress Questionnaire Answer Date Recorded [...] your living situation today? I have a [facility] place to live 01/19/2024 Education Answer Date Recorded What is the highest level of school you have completed or the highest degree you have received? 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 [address] [place] [phone] 10/25/2024 7:30 AM TROUBLE OPERATOR Appointment Department of Laboratory Medicine in [place], [place] [address] [place] [place] [phone] Praveena Monge M.B., B.Ch., Ph.D. [address] [place] [phone] 10/25/2024 8:10 AM TROUBLE OPERATOR Appointment Department of Laboratory Medicine in [place], [place] [address] [place] [place] [phone] Praveena Monge M.B., B.Ch., Ph.D. [address] [place] [phone] 11/04/2024 10:30 AM TROUBLE OPERATOR Office Visit Division of Endocrinology in [place], [place] [address] [place] [phone] Praveena Monge M.B., B.Ch., Ph.D. [address] [place] [phone] 11/04/2024 1:00 PM TROUBLE OPERATOR Clinical Support Department of Nutrition and Diabetes Education in [place], [place] [address] [place] [phone] Praveena Monge M.B., B.Ch., Ph.D. [address] [place] [phone] Luzma Portillo R.N. [address] [place] [phone] 11/15/2024 7:00 AM TROUBLE OPERATOR Clinical Communication Virtual Review in [place], [place] [address] [place] [phone] 11/18/2024 7:30 AM TROUBLE OPERATOR Appointment Department of Radiology, [facility], in [place], [place] [address] [place] [phone] Krista Camacho M.D. [address] [place] [phone] 11/22/2024 3:30 PM TROUBLE OPERATOR Office Visit Breast Diagnostic Clinic in [place], [place] [address] [place] [phone] Krista Camacho M.D. [address] [place] [phone] Scheduled Orders Name Type Priority Associated Diagnoses Orde r Schedule MR Breast Bilateral without and with IV Contrast Imaging RAD - Routine (most inpatients and all outpatients) Cancer Breast Family History Mammographic Extreme Density, Bilateral Breasts Expected: 11/22/2024, Expires: 11/22/2025 documented as of this encounter Visit Diagnoses Diagnosis Cancer Breast Family History- Primary Mammographic Extreme Density, Bilateral Breasts documented in this encounter Additional Health Concerns Assessment Noted Time PHQ-9 Depression Total Score: 0 07/29/20 24 8:08 AM CDT documented as of this encounter Care Teams Director Public Relationship Specialty Start Date End Date Demetrice Hyde M.D. [address] [place] [phone] PCP - General 11/06/22 documented as of this encounter
--- OUTSIDE RECORDS SUMMARY | 2024-10-15 14:06 | XMS_ITS | Clinical Summary ---
Author Organization [facility] [employer] Address [place], [place] [address] Care Team Providers Care Packaging Engineer Name Role Phone Eleni Bunn NP Unavailable Jeovany Chester MD Unavailable Irma Cherry MD Unavailable Juan Jose Garcia MD Unavailable Brendon Romeo MD Unavailable Marva Sims MD Unavailable [phone] Britany Bernal Unavailable Jon Davey MD Unavailable Unavailable Meng Lopez MD Unavailable Unavail able Henrietta Pugh ENTRY LEVEL ACCOUNT REPRESENTATIVE Primary Care Provider Allergies Active Allergy Reactions Criticality Noted Date Comments Omeprazole Nausea Only,Constipation 06/26/2014 Medications MULTIVITAMIN TAB take 1 tablet by oral route once daily with food 0 02/25/20 07 Active GLUCAGON EMERGENCY 1 MG INJECTION KITIndications:T ype I (juvenile type) diabetes mellitus without mention of complication, not stated as uncontrolled use as directed 2 prn 11/17/19 09 Active KEPPRA 250 MG TAB take 2 tablets (500 mg) by oral route 2 times per day 0 03/27/20 09 Active lisinopril (PRINIVIL; ZESTRIL) 10 mg tablet TAKE 1 TABLET BY MOUTH EVERY DAY 90 tablet 0 07/29/20 10 Active guaiFENesin (MUCINEX) 600 mg Extended-Release tablet Take 1 tablet by mouth 2 times daily. 40 tablet 11/09/2017 4:00 PM CORPORATE PLANNER 11/09/19 18 Active acetaminophen (TYLENOL) 325 mg tablet Take 650 mg by mouth every 6 hours. Active glucose 4 gram chewable tablet Take 4 g by mouth each time if needed. Active insulin aspart U-100 (NOVOLOG) 100 unit/mL injection USE UP TO 60 UNITS PER DAY VIA PUMP 12/08/19 20 Active LACTOBACILLUS ACIDOPHILUS ORAL Take 1 capsule by mouth once daily. Active atorvastatin (LIPITOR) 20 mg tablet Take 20 mg by mouth once daily. Active HYDROcodone-acet aminophen (NORCO) 5-325 mg per tabletIndication s:Adhesive capsulitis of left shoulder Take 1-2 Tablets by mouth every 4 hours if needed for Pain Max acetaminophen dose: 4000 mg in 24 hrs. 30 Tablet 12/25/19 21 Active Active Problems Problem Noted Date Diagnosed Date Goiter 06/11/2010 Overview (06/11/2010): Small symmetrical goiter ~30gms. GERD (gastroesophageal reflux disease) 0 Overview (04/22/2010): EGD 04/2010 normal Seizure disorder 08/15/2009 Hirsutism 01/09/2009 Unspecified essential hypertension 03/24/2007 Type I (juvenile type) diabe wong mellitus without mention of complication, not stated as uncontrolled Overview (01/02/2009): - Diagnosed in 1990 at age 20. - On MDI with good control but frequent hypoglycemia. - On pump since early 2006. - Excellent control. - No complications. 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 Needs annual mammograms and breast MRI Resolved Problems Problem Noted Date Diagnosed Date Resolved Date OCD (obsessive compulsive disorder) 01/23/2009 09/21/2009 Anxiety state, unspecified 01/23/2009 1 11/22/2008 Syncope and collapse 01/02/2009 009 Overview (05/01/2009): - Neuro eval * Brain MRI 12/18: normal * awake EEG 12/18: normal - Cardiac Eval * echo 12/22/08: normal EF and valves * event monitor: SR to ST - no preceeding symptoms: has had loss of bladder function Later evaluation at [facility] felt these symptoms all from seizure SVT (supraventricular tachycardia) 12/26/2008 05/01/2009 Type I (juvenile type) diabe wong mellitus without mention of complication, not stated as uncontrolled 03/24/2007 02/08/2008 Immunizations Name Administration Dates Next Due AMB INFLUENZA, IIV4 (AGE=>6M OS) MDV (Flu Clinic Only) 07/22/2018 AMB Influenza, IIV4 PF (=>6 mos Flulaval,Fluzone Fluarix)(Flu Clinic Only) 07/19/2019,07/10/2014 DTaP 09/05/2011 Hepatitis B (Adult) 02/28/2013,11/26/2012,2011 Influenza A (H1N1), Inactiva diana (Age >=3 Years) 09/21/2009 Influenza, IIV3 (Age >=3 years) 07/28/20 16,07/14/2013,07/16/2011,2009,06/22/2009,07/21/2008,08/11/2007(D eferred: Patient Refused - pt left) Pneumococcal Poly,23-Valent (Pneumovax) 09/05/2011 Td (Age >=7 Years) 10/12/2004 Family History Medical History Relation Name Comments Other Father prostate 67 yea rs old Hypertension Maternal Grandmother Diabetes Mother type II Hypertension Mother Cancer-breast No Family History Relation Name Status Comments Father Alive Maternal Grandmother Mother Alive Sister Alive x2 Social History Tobacco Use Types Packs/Day Years Used Date Smoking Tobacco: Never Smokeless Tobacco: Never Tobacco Cessation:Counseling Given: No Comments:never Alcohol Use Standard Drinks/Week Comments No 0 (1 standard drink = 0.6 oz pur e alcohol) Comments No Sex and Gender Information Value Date Recorded Sex Assigned at Not on file Legal Sex Female 7:18 AM CORPORATE PLANNER Gender Identity Not on file Sexual Orientation Not on file Occupation Industry Job Start Date Job End Date student Not on file Not on file Not on file Obstetrics History Para Term AB IAB SAB Ectopic Multiple Livin g Live Births 0 0 Comments menarche-14AGE OF [place]: 14 years old LMP: 9-08 Last Filed Vital Signs Vital Sign Reading Time Taken Comments Blood Pressure 109/70 12/24/2020 8:48 AM CDT Pulse 61 12/24/2020 8:48 AM CDT Temperature 36.6 C (97.9 F) 12/24/2020 8:17 AM CDT Respiratory Rate 16 12/24/2020 8:48 AM CDT Oxygen Saturation 94% 12/24/2020 8:48 AM CDT Inhaled Oxygen Concentration - - Weight 71.3 kg (157 lb 1.6 oz) 12/24/2020 6:18 A M CDT Height 167.6 cm (5' 5.98) 12/24/2020 6:18 AM CD T Body Mass Index 25.37 12/24/2020 6:18 AM CDT Plan of Treatment Health Maintenance Due Date Last Done Comments HIV for age 15-65 1987 Hepatitis C screening for age 18-79 1990 Pap test for age 21-65 05/28/2013 0, 05/28/2010, 03/27/2009 Tetanus booster 10/12/2014 10/12/2004 Depression screening for age 12+ 04/30/2017 04/30/2016 Colonoscopy through age 75 2017 Lipids for age 45-75 2017 04/18/2010, 01/03/2010, 01/03/2009, Additional history exists Mammogram for age 45-75 2017 02/14/20 11, 03/29/2009, 06/26/2008 BMI (ht and wt on same day) for age 18+ 11/17/2017 11/17/2016 Pneumococcal series for age 50+ (2 of 2 - PCV) 2022 09/05/2011 Zoster (shingles) series for age 50+ (1 of 2) 2022 COVID-19 vaccine series ( season) 2024 07/28/2023, 07/01/2022, 08/09/2021, Additional history exists Influenza for age 50-64 06/12/2024 07/19/20 19, 07/22/2018, 07/28/2016, Additional history exists Pneumococcal series for age 6-49 Aged Out 09/05/2011 No longer eligible based on patient's age to complete this topic Tdap Completed 09/05/2011 (Comp leted outside of [facility]) Procedures Procedure Name Priority Date/Time Associated Diagnosis Comments XR MAMMO BILAT SCREEN FFDM (IA) Routine 02/13/2011 6:48 PM CDT CV/CVN CV TSC SYSTEM OPERATOR THIN PREP PAP DIAGNOSTIC IMAGED Routine 05/28/2010 10:23 AM CDT LGSIL (low grade squamous intraepithelial lesion) on Pap smear LIPID PANEL Routine 04/18/2010 7:19 AM CDT Lipid screening from Last 3 Months or Most Recently Relevant to Health Maintenance Results * XR MAMMO BILAT SCREEN FFDM (02/13/2011 6:48 PM CDT) Anatomical Region Laterality Modality BREASTS, Breast Left, Breast Right Bilateral Mammography Impressions 02/21/2011 1:27 PM CDT There is no radiographic evidence for malignancy. Recommend annual mammograms. A lay language report of this examination will be provided to the patient. MAMMOGRAM ASSESSMENT: ACR 2 Benign Narrative 02/21/2011 1:27 PM CDT XR MAMMO BILAT SCREEN FFDM [G0202.0] CLINICAL HISTORY: This is an asymptomatic 40 y.o. patient. INDICATION FOR EXAM: Mammogram Screening. TECHNIQUE: CC & MLO views were obtained. This digital study was evaluated with the assistance of Computer-Aided Detection. COMPARISON FILMS: Yes 04/03/10 [facility] FINDINGS: Mammographically, the breast tissue is heterogeneously dense, which could obscure detection of small masses (approximately 51% - 75% glandular). No suspicious masses or microcalcifications. Post surgical changes within both breasts. Procedure Note Maria Elena Glass MD - 02/21/2011 XR MAMMO BILAT SCREEN FFDM [G0202.0] CLINICAL HISTORY: This is an asymptomatic 40 y.o. patient. INDICATION FOR EXAM: Mammogram Screening. TECHNIQUE: CC & MLO views were obtained. This digital study was evaluatedwith the assistance of Computer-Aided Detection. COMPARISON FILMS: Yes 04/03/10 [facility] FINDINGS: Mammographically, the breast tissue is heterogeneously dense,which could obscure detection of small masses (approximately 51% - 75%glandular). No suspicious masses or microcalcifications. Post surgicalchanges within both breasts. IMPRESSION: There is no radiographic evidence for malignancy. Recommendannual mammograms. A lay language report of this examination will be provided to the patient. MAMMOGRAM ASSESSMENT: ACR 2 Benign us Marva Sims MD MAMMO Final Result * (ABNORMAL) CV/CVN CV TSC SYSTEM OPERATOR THIN PREP PAP DIAGNOSTIC IMAGED (05/28/2010 10:23 AM CDT) CYTOLOGY CYTOPATHOLOGY REPORT [facility] Status: Final Status [id number] CLINICAL INFORMATION Last Date of LMP :summer 2008 Last Pap Date :03/27/2009 Last Pap Result :LSIL ABN Delta/Bx Past 5 YRS :HSIL Hormone Usage :None Menstrual Status :Hyst-cervix absent Delta/Bx done today :No Additional Information :None given HPV Request :HPV if ASCUS ANCILLARY TESTING :HPV testing ordered. See Separate Report. SPECIMEN SOURCE :Cervical/vagina l ThinPrep Vial, diagnostic SPECIMEN ADEQUACY :Satisfactory for evaluation INTERPRETATION/R ESULT Atypical squamous cells of undetermined significance (ASCUS) Cytology 1st Screener :cmm Signed by : Nikole Ramey M.D. This specimen was screened by the FDA approved ThinPrep Imaging System and manually reviewed. NOTE: The Pap test is a screening technique, not a diagnostic procedure. It is used primarily to screen for squamous cancers and precursor lesions. Published studies have shown that it is subject to both false negative and false positive results. The pap test should not be used as the sole means to diagnose or exclude pre-malignant and malignant lesions. COLLECTED: ACCESSIONED: 05/29/10 SIGNED: 06/03/10 [facility] PAP [place] CODE ASCUS [facility] Cervical/Vaginal (Cervical/Vagina l) 05/28/2010 10:23 AM CDT 05/28/2010 10:16 AM CDT us Britany BELTRÁN PATHOLOGY/CYTOLOGY Final R esult [facility] INTERNAL ZIP [address] [place] [id number] * LIPID (04/18/2010 7:19 AM CDT) CHOLESTEROL,TOTAL 137 110 - 199 mg/dL [facility] TRIGLYCERIDES 60 <150 mg/dL [facility] HDL CHOLESTEROL 61 >40 mg/dL [facility] CHOL/HDL RATIO 2.25 <4.51 [facility] LDL CHOLESTEROL 64 <131 mg/dL [facility] PATIENT STATUS Fasting [facility] Blood specimen (specimen) BLOOD SPECIMEN / Unknown 04/18/2010 7:19 AM CDT 04/18/2010 7:14 AM CDT us Marva Sims MD CHEMISTRY Final Result [facility] [address] [place] [address] from Last 3 Months or Most Recently Relevant to Health Maintenance Insurance [facility] [id number] [place] [id number] [facility] Advance Directives * Full Code (Latest Code Status on File) Date Activated Date Inactivated Comments 12/24/2020 5:55 AM 12/24/2020 11:05 AM Question Answer Comments Code Status Discussion: Per Existing Order * Full Code Date Activated Date Inactivated Comments 11/21/2016 5:59 AM 11/21/2016 4:05 PM * Full Code Date Activated Date Inactivated Comments 06/28/2014 7:30 PM 06/29/2014 11:45 AM * Full Code Date Activated Date Inactivated Comments 06/28/2014 12:26 PM 06/28/2014 7:30 PM * Full Code Date Activated Date Inactivated Comments 01/02/2009 5:07 PM 01/06/2009 5:24 PM Care Teams Packaging Engineer Relationship Specialty Start Date End Date Henrietta Pugh NP [address] [facility] [place] [address] PCP - General Nurse Practitioner 11/18/16 Eleni Bunn NP [facility] 05/12/11 Jeovany Chester MD [address] [place] [address] [facility] 05/12/11 Irma Cherry MD [address] [place] [address] [facility] 05/12/11 Juan Jose Garcia MD [address] [place] [id number] [facility] 05/12/11 Brendon Romeo MD [address] [place] [address] Internal Medicine 05/12/11 Marva Sims MD [address] [place] [id number] Unknown Physician Specialty 05/12/11 Britany Bernal PA [address] [place] [address] [facility] 05/12/11 [place] [address] [address] [facility] [address] [place] [address] Ophthalmology Surgery 05/12/11 [place] [address] [address] [facility] [address] [place] [address] [facility] 05/12/11
--- OUTSIDE RECORDS SUMMARY | 2024-10-15 14:06 | XMS_ITS | Encounter Summary ---
Author Organization [facility] Address [address] [place] [address] Care Team Providers Care Corporate Vp Advertising & Online Name Role Phone Demetrice Hyde M.D. Primary Care Provider + Reason for Referral * Specialty Diagnoses / Procedures Referred By Contac t Referred To Contact Diagnoses Diabetes Mellitus Type 1 Without Complication (HCC) Praveena Monge M.B., B.Ch., Ph.D. [address] [place] [phone] Phone: tel: fax: [facility] Referral ID Status Reason Start Date Expiration Date Visits Re quested Visits Authorized AR ATTENDANT Encounter Details Date Type Department Care Team (Late st Contact Info) Description 09/21/2024 Orders Only Division of Endocrinology in [place], [place] [address] [place] [phone] Praveena Monge M.B., B.Ch., Ph.D. [address] [place] [phone] Diabetes Mellitus Type 1 Without Complication (HCC) (Primary Dx) Social History Tobacco Use Types Packs/Day Years Used Date Smoking Tobacco: Never Passive Smoke Exposure: Never Smokeless Tobacco: Never Alcohol Use Standard Drinks/Week Comments Never 0 (1 standard drink = 0.6 oz pur e alcohol) [facility] Utilities Answer Date Recorded In the [...] often do you attend chur ch or zoroastrianism services? Never 11/21/2022 Do you belong to any clubs o r organizations such as baptist groups, unions, fraternal or athletic groups, or [...] Answer Date Recorded PHQ-2 Score 0 07/29/2024 [facility] - Occupational Stress [...] your living situation today? [facility] live 01/19/2024 Education Answer Date Recorded What is the highest level of school you have completed or the highest degree you have received? 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 [address] [place] [phone] 10/25/2024 7:30 AM HANGAR ATTENDANT Appointment Department of Laboratory Medicine in [place], [place] [address] [place] [phone] Praveena Monge M.B., B.Ch., Ph.D. [address] [place] [phone] 10/25/2024 8:10 AM HANGAR ATTENDANT Appointment Department of Laboratory Medicine in [place], [place] [address] [place] [phone] Praveena Monge M.B., B.Ch., Ph.D. [address] [place] [phone] 11/04/2024 10:30 AM HANGAR ATTENDANT Office Visit Division of Endocrinology in [place], [place] [address] [place] [phone] Praveena Monge M.B., B.Ch., Ph.D. [address] [place] [phone] 11/04/2024 1:00 PM HANGAR ATTENDANT Clinical Support Department of Nutrition and Diabetes Education in [place], [place] [address] [place] [phone] Praveena Monge M.B., B.Ch., Ph.D. [address] [place] [phone] Luzma Portillo R.N. [address] [place] [phone] 11/15/2024 7:00 AM HANGAR ATTENDANT Clinical Communication Virtual Review in [place], [place] 200 [place] [phone] 11/18/2024 7:30 AM HANGAR ATTENDANT Appointment Department of Radiology, [facility], in [place], [place] [address] [place] [phone] Krista Camacho M.D. [address] [place] [phone] 11/22/2024 3:30 PM HANGAR ATTENDANT Office Visit Breast Diagnostic Clinic in [place], [place] [address] [place] [phone] Krista Camacho M.D. [address] [place] [phone] Scheduled Referrals Name Type Priority Associated Diagnoses Orde r Schedule Nutrition - simulation educator visit (clinic) Outpatient Referral Routine Diabetes Mellitus Type 1 Without Complication (HCC) Expected: 09/21/2024, Expires: 09/21/2025 documented as of this encounter Visit Diagnoses Diagnosis Diabetes Mellitus Type 1 Without Complication (HCC)- Primary documented in this encounter Additional Health Concerns Assessment Noted Time PHQ-9 Depression Total Score: 0 07/29/20 24 8:08 AM CDT documented as of this encounter Care Teams Corporate Vp Advertising & Online Relationship Specialty Start Date End Date Demetrice Hyde M.D. [address] [phone] PCP - General 11/06/22 documented as of this encounter
--- OUTSIDE RECORDS SUMMARY | 2024-10-15 14:06 | XMS_ITS | Encounter Summary ---
Author Organization [facility] Address [address] [place] [address] Care Team Providers Care Loft Patternmaker Name Role Phone Demetrice Hyde M.D. Primary Care Provider + Encounter Details Date Type Department Care Team (Late st Contact Info) Description 08/12/2017 Historical Ophthalmology [facility] Boubacar Alvarado M.D. [address] [phone] Social History Tobacco Use Types Packs/Day Years Used Date Smoking Tobacco: Never Comments No Sex and Gender Information Value Date Recorded Sex Assigned at Female 12/01/2017 8:02 AM ADMINISTRATIVE DIETITIAN Legal Sex Female 12:21 PM ADMINISTRATIVE DIETITIAN Gender Identity Female 12/01/2017 8:02 AM ADMINISTRATIVE DIETITIAN Sexual Orientation Straight 12/01/2017 8: 02 AM ADMINISTRATIVE DIETITIAN documented as of this encounter Progress Notes * Boubacar Alvarado M.D. - 08/12/2017 8:44 AM CDT Eye General CHIEF COMPLAINT CE IDDM HISTORY OF PRESENT ILLNESS Pt states that her computer range is no longer clear with her glasses on. Sees little floaters as she working on the computer. 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 Plan: U/v protection. Update glasses. F/u one year. 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 CDM Reports - EYEGEN Id: [id number] Status: Fnl documented in this encounter Plan of Treatment Upcoming Encounters Date Type Department Care Team (Late st Contact Info) Description 10/21/2024 9:15 AM ADMINISTRATIVE DIETITIAN Comprehensive Visit Department of Ophthalmology in [place], [place] [address] [place] [phone] Boubacar Alvarado M.D. [address] [phone] 10/25/2024 7:30 AM ADMINISTRATIVE DIETITIAN Appointment Department of Laboratory Medicine in [place], [place] [address] [phone] Praveena Monge M.B., B.Ch., Ph.D. [address] [place] [phone] 10/25/2024 8:10 AM ADMINISTRATIVE DIETITIAN Appointment Department of Laboratory Medicine in [place], [place] [address] [phone] Praveena Monge M.B., B.Ch., Ph.D. [address] [place] [phone] 11/04/2024 10:30 AM ADMINISTRATIVE DIETITIAN Office Visit Division of Endocrinology in [place], [place] [address] [place] [phone] Praveena Monge M.B., B.Ch., Ph.D. [address] [place] [phone] 11/04/2024 1:00 PM ADMINISTRATIVE DIETITIAN Clinical Support Department of Nutrition and Diabetes Education in [place], [place] [address] [place] [phone] Praveena Monge M.B., B.Ch., Ph.D. [address] [place] [phone] Luzma Portillo R.N. [address] [place] [phone] 11/15/2024 7:00 AM ADMINISTRATIVE DIETITIAN Clinical Communication Virtual Review in [place], [place] [address] [place] [phone] 11/18/2024 7:30 AM ADMINISTRATIVE DIETITIAN Appointment Department of Radiology, [facility], in [place], [place] [address] [place] [phone] Krista Camacho M.D. [address] [place] [phone] 11/22/2024 3:30 PM ADMINISTRATIVE DIETITIAN Office Visit Breast Diagnostic Clinic in [place], [place] [address] [place] [phone] Krista Camacho M.D. [address] [place] [phone] documented as of this encounter Visit Diagnoses Not on filedocumented in this encounter Additional Health Concerns Infection Onset Date Last Indicated Resolved Time COVID19 Pending 12/20/2020 12/21/2020 12/21/2020 8 :37 PM ADMINISTRATIVE DIETITIAN COVID19 Pending 06/10/2021 06/11/2021 06/11/2021 1 2:17 PM CDT COVID19 Pending 06/11/2021 06/11/2021 06/12/2021 1 :45 PM CDT COVID19 Pending 09/28/2021 09/29/2021 09/30/2021 1 0:57 AM ADMINISTRATIVE DIETITIAN COVID19 Pending 12/13/2021 12/13/2021 12/14/2021 1 2:05 AM ADMINISTRATIVE DIETITIAN COVID19 09/11/2022 09/11/2022 10/01/2022 5:05 AM ADMINISTRATIVE DIETITIAN Assessment Noted Time PHQ-9 Depression Total Score: 0 03/12/20 17 8:45 AM CDT documented as of this encounter Care Teams Loft Patternmaker Relationship Specialty Start Date End Date Demetrice Hyde M.D. [address] [phone] PCP - General 11/06/22 documented as of this encounter
--- OUTSIDE RECORDS SUMMARY | 2024-10-15 14:06 | XMS_ITS ---
Author Organization [facility] Address [address] [place] [address] Care Team Providers Care Medical Insurance Claims Processor Name Role Phone Unavailable Unavailable Unavailable Surgery Details Not on file Complications Check Surgery Details section. Procedure Estimated Blood Loss Check Surgery Details section. Procedure Findings Check Surgery Details section. Procedure Specimens Taken Check Surgery Details section.
--- OUTSIDE RECORDS SUMMARY | 2024-10-15 14:06 | XMS_ITS | Referral Summary ---
Author Organization [facility] Address [address] [place] [address] Care Team Providers Care Tobacco Stemmer Name Role Phone Demetrice Hyde M.D. Primary Care Provider + Source Comments Patient records contain information from all sites at [facility]. For routine questions regarding patient records, call [phone] during business hours, M-F 8:00 AM - 5:00 PM Central Time. Record requests for emergency care only can be directed to [phone] at any time.[facility] Encounters Date Type Department Care Team Description 09/21/2024 Orders Only Division of Endocrinology in [place], [place] [address] [place] [phone] Praveena Monge M.B., B.Ch., Ph.D. Diabetes Mellitus Type 1 Without Complication (HCC) (Primary Dx) 08/22/2024 Clinical Communication Breast Diagnostic Clinic in [place], [place] [address] [place] [phone] Krista Camacho M.D. 08/12/2024 Clinical Communication Division of Endocrinology in [place], [place] [address] [place] [phone] Praveena Monge M.B., B.Ch., Ph.D. [employer] 08/11/2024 8:00 AM CDT Immunization Department of Family Medicine, [facility], in [place], [place] [address] [place] [phone] Need Vaccine Immunization (Primary Dx) 07/29/2024 8:30 AM CDT Office Visit Department of Obstetrics and Gynecology in [address] [phone] Marva Alexander CNM, D.N.P. Preventive Gynecological Exam (Primary Dx); Atrophy Vagina Due To Estrogen Deficiency; Cancer Breast Family History; Cervical Dysplasia Personal History; Neoplasia Vaginal Intraepithelial Personal History 07/28/2024 Refill Department of Internal Medicine in [address] [phone] Demetrice Hyde M.D. Med Refill 07/26/2024 Refill Department of Family Medicine, [facility], in [address] [phone] Demetrice Hyde M.D. Med Refill from Last 3 Months Allergies Active Allergy Reactions Criticality Noted Date Comments Omeprazole Nausea Only,GI intolerance Medium 11/20/2011 Cerner listed constipation as additional reaction. Medications MULTIVITAMIN [...] She follows with the breast clinic in [place]. Breast clinic recommendations include: 1. Clinical breast [...] laser therapy that can be done at [place] in [place] but payment out of pocket is required and a series of treatments is needed. She is still considering this and will let us know if she would like to move forward. I would also want to check with [employer] [facility] regarding how that would affect surveillance [...] Overview (12/01/2017): Overview: Small symmetrical goiter ~30gms. Immunizations Name Administration Dates Next Due H1N1 [...] quad (FLUZONE/FLUARIX) (6 months and older)(PF) 07/28/2023,08/11/2022,07/30/2021,2019,07/10/2014 Social History Tobacco Use Types Packs/Day Years Used Date Smoking Tobacco: Never Passive Smoke Exposure: Never Smokeless Tobacco: Never Tobacco Cessation:Counseling Given: Not Answered Alcohol Use Standard Drinks/Week Comments Never 0 (1 standard drink = 0.6 oz pur e alcohol) [facility] Utilities Answer Date Recorded In the past [...] often do you attend chur ch or congregation services? Never 11/21/2022 Do you belong to any clubs o r organizations such as religion groups, unions, fraternal or athletic groups, or [...] Answer Date Recorded PHQ-2 Score 0 07/29/2024 [facility] [place] of Occupat ional Health - Occupational Stress [...] your living situation today? I have a [facility] place to live 01/19/2024 Education Answer Date Recorded What is the highest level of school you have completed or the highest degree you have received? Bachelor's degree (e.g., BA, AB, BS) 11/03/2019 Comments No Sex and Gender Information Value Date Recorded Sex Assigned at Female 12/01/2017 8:02 AM DIGITAL TECH Legal Sex Female 12:21 PM DIGITAL TECH Gender Identity Female 12/01/2017 8:02 AM DIGITAL TECH Sexual Orientation Straight 12/01/2017 8: 02 AM DIGITAL TECH Occupation Industry Job Start Date Job End Date [employer] Not on file Not on file N ot on file Last Filed Vital Signs Vital Sign Reading Time Taken Comments Blood Pressure 118/75 07/29/2024 8:06 AM CDT Pulse 64 05/24/2024 3:10 PM CDT Temperature 36.3 C (97.4 F) 01/19/2024 7:41 AM CDT Respiratory Rate 20 09/15/2023 9:22 AM DIGITAL TECH Oxygen Saturation 99% 09/15/2023 9:22 AM DIGITAL TECH Inhaled Oxygen Concentration - - Weight 73.1 kg (161 lb 2.5 oz) 07/29/2024 8:06 A M CDT Height 168.5 cm (5' 6.34) 07/29/2024 8:06 AM CD T Body Mass Index 25.75 07/29/2024 8:06 AM CDT Plan of Treatment Upcoming Encounters Date Type Department Care Team (Late st Contact Info) Description 10/21/2024 9:15 AM DIGITAL TECH Comprehensive Visit Department of Ophthalmology in [place], [place] [address] [place] [phone] Boubacar Alvarado M.D. [address] [phone] 10/25/2024 7:30 AM DIGITAL TECH Appointment Department of Laboratory Medicine in [place], [place] [address] [place] [phone] Praveena Monge M.B., B.Ch., Ph.D. [address] [place] [phone] 10/25/2024 8:10 AM DIGITAL TECH Appointment Department of Laboratory Medicine in [place], [place] [address] [phone] Praveena Monge M.B., B.Ch., Ph.D. [address] [place] [phone] 11/04/2024 10:30 AM DIGITAL TECH Office Visit Division of Endocrinology in [address] [phone] Praveena Monge M.B., B.Ch., Ph.D. [address] [place] [phone] 11/04/2024 1:00 PM DIGITAL TECH Clinical Support Department of Nutrition and Diabetes Education in [address] [phone] Praveena Monge M.B., B.Ch., Ph.D. [address] [place] [phone] Luzma Portillo R.N. [address] [place] [phone] 11/15/2024 7:00 AM DIGITAL TECH Clinical Communication Virtual Review in [place], [place] 200 [place] [phone] 11/18/2024 7:30 AM DIGITAL TECH Appointment Department of Radiology, [facility], in [address] [phone] Krista Camacho M.D. [address] [place] [phone] 11/22/2024 3:30 PM DIGITAL TECH Office Visit Breast Diagnostic Clinic in [address] [phone] Krista Camacho M.D. [address] [place] [phone] Medical Devices Implanted Type Area Cuff Matcher Device Identifier Shelf Expiration Date Model / Serial / Lot Clp [facility]sp [facility] 235 - [id number] - [id number] Implanted:Qty: 1 on 09/15/2023 by Santy Canela M.D. at [facility] [employer] Hardware e.g. pins/screw s/rods N/A: Descending Colon [employer] [id number] 03/26/2026 [id number] / [id number] Clp [facility]sp [facility] 235 - [id number] - [id number] Implanted:Qty: 1 on 09/15/2023 by Santy Canela M.D. at [facility] [employer] Hardware e.g. pins/screw s/rods N/A: Descending Colon [employer] [id number] 03/26/2026 [id number] Imaging Marker Imaging Marker Bilateral: Breast [...] Complication (HCC) COLONOSCOPY Routine 09/15/2023 7:41 AM DIGITAL TECH Screening Colon Cancer Average Risk COLOGUARD Routine 08/26/2022 5:45 AM DIGITAL TECH Screening Cancer Colon HIV-1 P24 AG, HIV-1/2 [...] PCR Negative Negative 08/02/2024 2:21 PM CDT [facility] Comment: The following Other High Risk HPV types were not detected: 31, 33, 35, 39, 45, 51, 52, 56, 58, 59, 66, and 68 This test was ordered in the context of a [facility] [employer] Cytology case; this result should be interpreted within the context of the [employer] cytology report. ----ADDITIONAL INFORMATION---- Testing was performed using the kanchan HPV assay ([place] [employer] This report is intended for use in clinical monitoring and management of patients. It is not intended for use in medical-legal applications. This test has been modified from the teletypist's instructions. Its performance characteristics were determined by [facility] in a manner consistent with CLIA requirements. This test has not been cleared or approved by the U.S. Food and Drug Administration. 07/29/2024 9:15 AM CDT 08/01/2024 8:17 AM CDT us Marva Alexander CNM, D.N.P. LAB MICROBIOLOGY - NERAL ORDERABLES Final Result [facility] [address] [place] [address] [facility] [address] [place] [address] [place] [address] * ThinPrep w/HPV Co-Test Screen (07/29/2024 9:15 [...] PM CDT [facility] Clinical History wwe 08/03/20 4:22 PM CDT [facility] Menstrual Status(LMP, PM, ) PM 08/03/2024 4:22 PM CDT [facility] Hormone Therapy/Contracep tives NO 08/03/2024 4:22 PM CDT [facility] Disclaimer High risk HPV testing, Real-Time Polymerase Chain Reaction (PCR) was performed on the liquid-based cytology specimen at [facility] (CLIA #[id number]), [address] [place] [address]. This test has been modified from the teletypist's instructions. Its performance characteristics were determined by [facility] in a manner consistent with CLIA requirements. [...] LAB PAP PATHDX ORDERA BLES Final Result [facility] [address] [place] [address], [place] [facility] [address] [facility] [address] [place] [address] * BI Breast Screening Bilateral with Tomosynthesis [...] Annual Screening Mammogram ASSESSMENT: BI-RADS: 1: Negative. Krista Camacho M.D. IM BI PROCEDURES Final Result * (ABNORMAL) Hemoglobin A1c (05/24/2024 4:05 PM CDT) Hemoglobin A1c, B 5.9(H) 4.0 - 5.6 % 05/24/2024 4:50 PM CDT DTL Comment: Hemoglobin A1c values of 5.7-6.4 percent indicate an increased risk for developing diabetes mellitus. In diabetic patients, HbA1c goals should be discussed with healthcare provider. Blood (Blood, Venous) 05/24/2024 4:05 PM CDT 05/24/2024 4:36 PM CDT Praveena Gamboa B.Ch., Ph.D. LAB BLOOD ADD-ON Final Result [facility] [address] [place] [address], [facility] DTFormerly named [facility] [address] [place] [address] * (ABNORMAL) Basic Metabolic Panel (05/10/2024 7:42 [...] ADD-ON Final R esult Performing Organization Address City/[facility]/ZIP Co de Phone Number [facility] [address] [place] [address], [place] [facility] in [place] [address] [place] [address] * (ABNORMAL) Albumin, Random, Urine (02/22/2024 12:13 PM CDT) Albumin, Random, U <5.0 mg/L 2023 8:47 AM CDT DTL Comment: ----ADDITIONAL INFORMATION---- This test has been modified from the teletypist's instructions. Its performance characteristics were determined by [facility] in a manner consistent with CLIA requirements. [...] ORDERA BLES Final Result Performing Organization Address City/[facility]/ZIP Co de Phone Number [facility] [address] [place] [address], [place] DTFormerly named [facility] [address] [place] [address] * Lipid Panel (02/22/2024 11:58 AM CDT) [...] 11:58 AM CDT 02/22/2024 12:37 PM CDT us Praveena Gamboa, B.Ch., Ph.D. LAB BLOOD ADD-ON Final Result [facility] [address] [place] [address], [facility] DTFormerly named [facility] [address] [place] [address] * Cologuard-Sent Out Lab (08/26/2022 5:45 AM DIGITAL TECH) Result Negative Negative 08/30/2022 9:22 AM DIGITAL TECH [facility] Comment: NEGATIVE TEST RESULT. A negative Cologuard [...] screened with both Cologuard and colonoscopy. (Donald Kay. et al, N Engl J Med 2014;370(14):5468-4421) The normal value (reference range) for this assay is negative. COLOGUARD RE-SCREENING RECOMMENDATION: Periodic colorectal cancer screening is an important part of preventive healthcare for asymptomatic individuals at average risk for colorectal cancer. Following a negative Cologuard result, the [place] Cancer Society and U.S. Multi-Society Task Force screening guidelines recommend a Cologuard re-screening interval of 3 years. References: [place] [employer] Guideline for Colorectal Cancer Screening: https://www.cancer.org/cancer/qwggp-bpvlih-eobvyd/detection- diagnosis-staging/acs-recommendations.html.; Ponce PEACOCK, Umang STRONG, Taty StoutK, Colorectal Cancer Screening: Recommendations for Physicians and Patients from the U.S. Multi-Society Task Force on Colorectal Cancer Screening , Am J Gastroenterology 2017; 112:1587-6070. TEST DESCRIPTION: Composite algorithmic analysis of stool [...] (Donald Solares al, N Engl J Med 2014;370(14):3136-2955.) Cologuard may produce a false negative or false positive result (no colorectal cancer or precancerous polyp present at colonoscopy follow up). A negative Cologuard test result does not guarantee the absence of CRC or advanced adenoma (pre-cancer). The current Cologuard screening interval is every 3 years. ([place] Cancer Society and U.S. Multi-Society Task Force). Cologuard performance data in a 10,000 patient pivotal study using colonoscopy as the reference method can be accessed at the following location: www.Viewfinity/results. Additional description of the Cologuard test process, warnings and precautions can be found at www.Preview NetworksogIndexTankrd.com. Stool (Stool) 08/26/2022 5:4 5 AM DIGITAL TECH 08/27/2022 12:31 PM DIGITAL TECH Angelique Lopez M.D. LAB BODY FLUIDS AND STOOL S ORDERABLES Final Result [employer] [address] [place] [address] [facility] [employer] [address] [place] [address], [address] [place] [address] * HIV-1 p24 Ag, HIV-1/2 Ab Scrn, [...] MICROBIOLOGY - BLOOD ORDERA BLES Final Result Performing Organization Address City/State/[facility] Co de Phone Number [facility] [address] [place] [address], [facility] from Last 3 Months or Most Recently Relevant to Health Maintenance Insurance [id number] [place] [id number] [employer] Care Teams Tobacco Stemmer Relationship Specialty Start Date End Date Demetrice Hyde M.D. [address] [place] [phone] PCP - General 11/06/22
[2024-10-15 14:09] VITALS: BP 110/63; PULSE 67; RESP 16; TEMP 36.7; O2SAT 98; BMI 24.4
--- NOTE | 2024-10-15 14:17 | ED.UPPEXIN ---
HPI - Extremity Injury (Upper) General Time Seen by Provider: 14:17 Date Seen: 10/15/24 Chief Complaint: Extremity Pain/Injury, Upper Stated Complaint: Poss fx right wrist Time Seen by Provider: 10/15/24 14:05 Source: patient and RN notes reviewed Mode of arrival: ambulatory Limitations: no limitations History of Present Illness HPI narrative: Patient is a 54-year-old female ambulatory into the ED with concern of a right wrist fracture. She was ice skating and slipped, falling on the wrist. She has pain with range of motion, notes swelling. She fell on an outstretched hand. Nothing else was injured. The patient last ate around noon, had rashes and soup for lunch. In triage, nursing staff noted pain complaint of 9/10, noted radial pulse to be intact and cap refill less than 3 seconds. Patient is a known type 1 diabetic with blood sugar currently 101. She also has underlying seizure disorder on Keppra. MD complaint: injury to: right and wrist Related Data Home Medications ?Medication ?Instructions ?Recorded ?Confirmed atorvastatin 20 mg tablet 20 mg PO DAILY 10/15/24 10/15/24 blood sugar diagnostic (Accu-Chek 10/15/24 10/15/24 Guide test strips) insulin aspart U-100 100 unit/mL 0 - 60 unit subcut DAILY 10/15/24 10/15/24 subcutaneous solution (Novolog U-100 Insulin aspart) levetiracetam 1,000 mg tablet 1,000 mg PO QPM 10/15/24 10/15/24 levetiracetam 750 mg tablet 750 mg PO QAM 10/15/24 10/15/24 lisinopril 10 mg tablet 10 mg PO DAILY 10/15/24 10/15/24 raloxifene 60 mg tablet 60 mg PO DAILY 10/15/24 10/15/24 Allergies Allergy/AdvReac Type Severity Reaction Status Date / Time No Known Drug Allergies Allergy Verified 10/15/24 14:13 Exam Const: Vital Signs, click to edit/add: Vital Signs - 24 hr 10/15/24 14:09 Temperature 98.1 F Pulse Rate [Pulse Oximeter] 67 Respiratory Rate 16 Blood Pressure [Le ft Upper Arm] 110/63 Pulse Oximetry 98 Oxygen Delivery Me thod Room Air Patient is alert, interactive, no apparent distress. She has her right forearm propped up on pillows. There is obvious swelling about the right wrist, distal wrist seems to have dorsal angulation. There is swelling. She can feel normal light touch sensation of her fingers in that hand. Do feel a good radial pulse. Documenting provider has reviewed patient's vital signs: yes Course Course ED Course: Patient states that she should be able to do x-rays without any pain management. Have discussed with her clinically this certainly appears to be fractured. I would suspect that we might need reduction. Reevaluation(s) Time of Reevaluation #1: 15:05 Reevaluation #1: Reviewed patient's x-rays with her. She has ulnar styloid fracture and distal radius comminuted, distal fragment dorsally angulated. Discussed options with her. Reviewed that we could do anesthesia for the reduction with conscious sedation verses attempt at hematoma block. She would prefer the hematoma block. Did discuss some oral pain management with her, she wants to avoid narcotics, really does not want to take them. She just has a fear of taking them. She really is only use Tylenol. She has had some minor surgeries before never used pain medicines. Discussed with her that it certainly is reasonable to give her something IV but she refuses. Will get her Tylenol 1000 mg and do the hematoma block. Patient consent is obtained for hematoma block of her right wrist fracture. The skin is cleaned with alcohol. 10 mL of 2% plain lidocaine with a 25 gauge needle is entered into the skin, small wheal at the skin and through the subcutaneous tissue infused with lidocaine. I was able to walk down to the fracture at edge, got a flashback of non pulsating blood. Injected the majority of the lidocaine into this area and then after did some soft tissue lidocaine around the fracture within the area of injection. Patient tolerated this well. Injection was complete about 3:10 p.m. and will let her rest for while so that we have good anesthesia. Time of Reevaluation #2: 16:36 Reevaluation #2: Have advised patient of plan, will get her a sling for her arm. She states her fingers were feeling a little tingly, they did look a little bit more dusky than after the procedure. Thus, do not feel it is just from the hematoma block. I simply opened up the Henok wraps, wrapped them looser and she had resolution of duskiness, had good cap refill. The tingly feeling was resolving. Consultations Consultation #1: Spoke with Albertina BELTRÁN from Orthopedics. She has looked did images. Reviewed with her that when we were doing the reduction, fracture fragments seemed quite unstable and were slipping. Splint was applied and patient was held as best we could to prevent loss of reduction. There is still not anatomic reduction but this is the best we are going to be able to do, this is very likely going to need surgery. She states they will have the office call the patient Thursday morning to get scheduled for follow-up and surgery next week. Time: 15:43 Vital Signs Vital signs: Initial Vital Signs Temperature 98.1 F 10/15/24 14:09 Temperature Source Temporal Artery Scan 10/15/24 14:09 Pulse Rate 67 10/15/24 14:09 Respiratory Rate 16 10/15/24 14:09 Blood Pressure 110/63 10/15/24 14:09 Blood Pressure Mean 78 10/15/24 14:09 Blood Pressure Position Sitting 10/15/24 14:09 Pulse Oximetry 98 10/15/24 14:09 Oxygen Delivery Method Room Air 10/15/24 14:09 Vital Signs Temperature 98.1 F 10/15/24 14:09 Pulse Rate 67 10/15/24 14:09 Respiratory Rate 16 10/15/24 14:09 Blood Pressure 110/63 10/15/24 14:09 Pulse Oximetry 98 10/15/24 14:09 Oxygen Delivery Method Room Air 10/15/24 14:09 Temperature 98.1 F 10/15/24 14:09 Pulse Rate 67 10/15/24 14:09 Respiratory Rate 16 10/15/24 14:09 Blood Pressure 110/63 10/15/24 14:09 Pulse Oximetry 98 10/15/24 14:09 Oxygen Delivery Method Room Air 10/15/24 14:09 Medications Administered Medications: Discontinued Medications Generic Name Dose Route Start Last Admin Trade Name Freq PRN Reason Stop Dose Admin Acetaminophen 1,000 mg 10/15/24 15:04 10/15/24 15:22 Acetaminophen 500 Mg Tablet PO 10/15/24 15:05 1,000 mg ONCE ONE Administration MDM - Extremity Injury (Upper) Imaging Data XR right wrist: Attestation: I have reviewed the pertinent imaging results. My impression: Radius and ulnar styloid fracture appreciated distally. Radiologist's impression: Patient: CARSON HERRERA Facility:?[facility] RIS Patient ID:?[id number] Site Patient ID:?[id number]. Site :?[id number] Study:?XRay-Extremity Right Wrist 3v-10/15/2024 2:32:11 PM Ordering Physician:Rigo Acosta Final Report: INDICATION: Fall. TECHNIQUE: Three views right wrist. IMPRESSION: Complex comminuted impacted dorsally angulated acute fracture of the distal radial metaphysis with probable intra-articular extension to the lunate fossa and potentially scaphoid fossa of the articular radius. No definitive incongruity or articular cortex identified. Transverse fracture through the base of the ulnar styloid. Smooth fusiform fullness in the radial volar cortex of the distal ulna could be remote fracture related versus projectional. Dictated by Sean Preston MD @ 10/15/2024 2:56:16 PM (Electronic Signature) Discharge Plan Discharge Clinical Impression: Closed fracture of distal ends of right radius and ulna Qualifiers: Encounter type: initial encounter Qualified Code(s): S52.501A - Unspecified fracture of the lower end of right radius, initial encounter for closed fracture Patient Disposition: Home, Self-Care Condition: Stable Instructions: Wrist Fracture in Adults (ED) Additional Instructions: Need to keep splint dry, use sling as needed for comfort. Can use Tylenol and ibuprofen per bottle directions as needed for discomfort. If the splint is seeming too tight, can try opening up the Henok wraps. If you are having progressive numbness tingling of your fingers, feel that the fingers are getting desk your blue that is not resolving with loosening of the Henok wraps, need to be re-evaluated. Otherwise, Orthopedic Clinic is going to call you on Thursday. If for some reason you have not heard from them by lunch, please call [phone] to get scheduled for follow-up. Your going to need surgery on this wrist and they will assist in getting this scheduled. Can try the ice as we talked about, try to elevate this arm as much as you are able to until you follow-up with orthopedics as this will help decrease swelling. Prescriptions: No Action atorvastatin 20 mg tablet 20 mg PO DAILY (DME) Accu-Chek Guide test strips Strip MISCELLANEOUS insulin aspart U-100 [Novolog U-100 Insulin aspart] 100 unit/mL solution 0 - 60 unit subcut DAILY lisinopril 10 mg tablet 10 mg PO DAILY raloxifene 60 mg tablet 60 mg PO DAILY levetiracetam 750 mg tablet 750 mg PO QAM levetiracetam 1,000 mg tablet 1,000 mg PO QPM Follow Up/Referrals: Juan Jose Garcia MD [Referring] - Stand Alone Forms: [facility] Info Instructions Procedures Orthopedic Fracture Reduction Fracture #1: Time Out Performed: Yes Side: right Fracture location: radius + ulna Details: distal Analgesia: hematoma block Technique: direct manipulation and traction/counter-traction Post Reduction X-rays Demonstrate: acceptable reduction Post-reduction neuro exam: other (Patient is feeling a little tingling in the fingers after the splint is applied. Will observe, unclear if this is from the block or if potentially the splint is applied to tight. Could be median nerve aggravation as well.) Post-reduction vascular exam: intact (Fingers are nice warm, good cap refill.) Splint Applied: Yes (Dorsal volar with Ortho Glass) Patient Tolerated Procedure: well
--- NOTE | 2024-10-15 14:21 | CRLHL7_ITS ---
For Patients: As a result of the Century Cures Act, medical imaging exams and procedure reports are released immediately into your electronic medical record. You may view this report before your referring provider. If you have questions, please contact your health care provider. INDICATION: Fall. TECHNIQUE: Three views right wrist. IMPRESSION: Complex comminuted impacted dorsally angulated acute fracture of the distal radial metaphysis with probable intra-articular extension to the lunate fossa and potentially scaphoid fossa of the articular radius. No definitive incongruity or articular cortex identified. Transverse fracture through the base of the ulnar styloid. Smooth fusiform fullness in the radial volar cortex of the distal ulna could be remote fracture related versus projectional. Dictated by Sean Preston MD @ 10/15/2024 2:56:16 PM (Electronically Signed)
--- OUTSIDE RECORDS SUMMARY | 2024-10-15 14:42 | XMS_ITS | Clinical Summary ---
Author Organization [facility] s & [facility] Address [place], [place] [address] Care Team Providers Care Through Freight Engineer Name Role Phone Eleni Bunn NP Unavailable Jeovany Chester MD Unavailable Irma Cherry MD Unavailable Juan Jose Garcia MD Unavailable Brendon Romeo MD Unavailable Marva Sims MD Unavailable [phone] Britany Bernal Unavailable [phone] Jon Davey MD Unavailable Unavailable Meng Lopez MD Unavailable Unavail able Henrietta uPgh BOLT THREADER Primary Care Provider [phone] Allergies Active Allergy Reactions Criticality Noted Date [...] times daily. 40 tablet 11/09/2017 4:00 PM ENGINEERING TECHNICIAN 11/09/19 18 Active acetaminophen (TYLENOL) 325 mg [...] loss of bladder function Later evaluation at [place] felt these symptoms all from seizure SVT [...] on file Legal Sex Female 7:18 AM ENGINEERING TECHNICIAN Gender Identity Not on file Sexual Orientation [...] FFDM (IA) Routine 02/13/2011 6:48 PM CDT DIGESTER OPERATOR THIN PREP PAP DIAGNOSTIC IMAGED Routine [...] of Computer-Aided Detection. COMPARISON FILMS: Yes 04/03/10 [facility] FINDINGS: Mammographically, the breast tissue is heterogeneously [...] of Computer-Aided Detection. COMPARISON FILMS: Yes 04/03/10 [facility] FINDINGS: Mammographically, the breast tissue is heterogeneously [...] Sims MD MAMMO Final Result * (ABNORMAL) DIGESTER OPERATOR THIN PREP PAP DIAGNOSTIC IMAGED (05/28/2010 10:23 AM CDT) CYTOLOGY CYTOPATHOLOGY REPORT [facility] Status: Final Status [id number] CLINICAL INFORMATION Last Date of LMP :summer 2008 Last Pap Date :03/27/2009 Last Pap Result :LSIL ABN Sabula/Bx Past 5 YRS :HSIL Hormone Usage :None Menstrual Status :Hyst-cervix absent Sabula/Bx done today :No Additional Information :None given [...] malignant lesions. COLLECTED: ACCESSIONED: 05/29/10 SIGNED: 06/03/10 [facility] PAP [place] CODE [facility] Cervical/Vaginal (Cervical/Vagina l) 05/28/2010 10:23 AM CDT 05/28/2010 10:16 AM CDT us Britany BELTRÁN PATHOLOGY/CYTOLOGY Final R esult [facility] INTERNAL ZIP [address] [place] [address] * LIPID (04/18/2010 7:19 AM CDT) CHOLESTEROL,TOTAL 137 110 - 199 mg/dL [facility] TRIGLYCERIDES 60 <150 mg/dL [facility] HDL CHOLESTEROL 61 >40 mg/dL [facility] CHOL/HDL RATIO 2.[address] [facility] LDL CHOLESTEROL 64 <131 mg/dL [facility] PATIENT STATUS Fasting [facility] Blood specimen (specimen) BLOOD SPECIMEN / Unknown 04/18/2010 7:19 AM CDT 04/18/2010 7:14 AM CDT us Marva Sims MD CHEMISTRY Final Result [facility] [address] [place] [address] from Last 3 Months or Most Recently Relevant to Health Maintenance Insurance [facility] [id number] [place] [id number] [facility] Advance Directives * Full Code (Latest Code [...] 5:07 PM 01/06/2009 5:24 PM Care Teams Through Freight Engineer Relationship Specialty Start Date End Date Henrietta Pugh NP [address] [facility] [place] [address] PCP - General Nurse Practitioner 11/18/16 Eleni Bunn NP [facility] 05/12/11 Jeovany Chester MD [address] [place] [address] [facility] 05/12/11 Irma Cherry MD [address] [place] [address] [facility] 05/12/11 Juan Jose Garcia MD [address] [place] [phone] [facility] 05/12/11 Brendon Romeo MD [address] [place] [address] Internal Medicine 05/12/11 Marva Sims MD [address] [place] [address] Unknown Physician Specialty 05/12/11 Britany Bernal PA [address] [place] [address] [facility] 05/12/11 [place] [address] [address] [facility] [address] [place] [address] Ophthalmology Surgery 05/12/11 [place] [address] [address] [facility] [address] [place] [address] [facility] 05/12/11
--- OUTSIDE RECORDS SUMMARY | 2024-10-15 14:42 | XMS_ITS ---
Author Organization [facility] Address [address] [place] [address] Care Team Providers Care Machine Learning Intern Name Role Phone Unavailable Unavailable Unavailable Surgery Details Not on file Complications Check Surgery Details section. Procedure Estimated Blood Loss Check Surgery Details section. Procedure Findings Check Surgery Details section. Procedure Specimens Taken Check Surgery Details section.
--- OUTSIDE RECORDS SUMMARY | 2024-10-15 14:42 | XMS_ITS | Clinical Summary ---
Author Organization [facility] Address [address] [place] [address] Care Team Providers Care Animal Skinner Name Role Phone Demetrice Hyde M.D. Primary Care Provider + Source Comments Patient records contain information from all sites at [facility]. For routine questions regarding patient records, call [phone] during business hours, M-F 8:00 AM - 5:00 PM Central Time. Record requests for emergency care only can be directed to [phone] at any time.[facility] Allergies Active Allergy Reactions Criticality Noted Date [...] She follows with the breast clinic in [place]. Breast clinic recommendations include: 1. Clinical breast [...] laser therapy that can be done at [facility] in [place] but payment out of pocket is required and a series of treatments is needed. She is still considering this and will let us know if she would like to move forward. I would also want to check with [facility] regarding how that would affect surveillance [...] 09/21/2024 Orders Only Division of Endocrinology in [place], [place] [address] [place] [phone] Praveena Monge M.B., B.Ch., Ph.D. Diabetes Mellitus Type 1 Without Complication (HCC) (Primary Dx) 08/22/2024 Clinical Communication Breast Diagnostic Clinic in [place], [place] [address] [place] [phone] Krista Camacho M.D. 08/12/2024 Clinical Communication Division of Endocrinology in [place], [place] [address] [place] [phone] Praveena Monge M.B., B.Ch., Ph.D. [employer] 08/11/2024 8:00 AM CDT Immunization Department of [facility], [facility], in [place], [place] [address] [place] [phone] Need Vaccine Immunization (Primary Dx) 07/29/2024 8:30 AM CDT Office Visit Department of Obstetrics and Gynecology in [place], [place] [address] [phone] Marva Alexander CNM, D.N.P. Preventive Gynecological Exam (Primary Dx); Atrophy Vagina Due To Estrogen Deficiency; Cancer Breast Family History; Cervical Dysplasia Personal History; Neoplasia Vaginal Intraepithelial Personal History 07/28/2024 Refill Department of Internal Medicine in [place], [place] [address] [place] [phone] Demetrice Hyde M.D. Med Refill 07/26/2024 Refill Department of Family Medicine, [facility], in [place], [place] [address] [place] [address] [place] [phone] Demetrice Hyde M.D. Med Refill from Last [...] Mother Edelmira Avilez Uterine cancer Mother Edelmira Avilez Breast cancer Other 1 Cancer Other 4 [...] Comments Father Galo Avilez (Age 77) d. [place] Father's Brother d. cardiac related Maternal Cousin [...] drink = 0.6 oz pur e alcohol) [facility] Utilities Answer Date Recorded In the past 12 months has th e [employer], gas, oil, or water nuvo[employer] threatened to shut off services in your [...] often do you attend chur ch or episcopal services? Never 11/21/2022 Do you belong to any clubs o r organizations such as hoahaoism groups, unions, fraternal or athletic groups, or [...] Answer Date Recorded PHQ-2 Score 0 07/29/2024 [facility] of Occupat ional Health - Occupational Stress [...] your living situation today? I have a [facility] place to live 01/19/2024 Education Answer Date Recorded What is the highest level of school you have completed or the highest degree you have received? 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 Not on file N ot on file Last Filed Vital Signs Vital Sign Reading Time Taken Comments Blood Pressure 118/75 07/29/2024 8:06 AM CDT Pulse 64 05/24/2024 3:10 PM CDT Temperature 36.3 C (97.4 F) 01/19/2024 7:41 AM CDT Respiratory Rate 20 09/15/2023 9:22 AM ACCOUNTS MANAGER Oxygen Saturation 99% 09/15/2023 9:22 AM ACCOUNTS MANAGER Inhaled Oxygen Concentration - - Weight 73.1 kg (161 lb 2.5 oz) 07/29/2024 8:06 A M CDT Height 168.5 cm (5' 6.34) 07/29/2024 8:06 AM CD T Body Mass Index 25.75 07/29/2024 8:06 AM CDT Plan of Treatment Upcoming Encounters Date Type Department Care Team (Late st Contact Info) Description 10/21/2024 9:15 AM ACCOUNTS MANAGER Comprehensive Visit Department of Ophthalmology in [place], [place] [address] [place] [phone] Boubacar Alvarado M.D. [address] [phone] 10/25/2024 7:30 AM ACCOUNTS MANAGER Appointment Department of Laboratory Medicine in [place], [place] [address] [phone] Praveena Monge M.B., B.Ch., Ph.D. [address] [place] [phone] 10/25/2024 8:10 AM ACCOUNTS MANAGER Appointment Department of Laboratory Medicine in [place], [place] [address] [phone] Praveena Monge M.B., B.Ch., Ph.D. [address] [place] [phone] 11/04/2024 10:30 AM ACCOUNTS MANAGER Office Visit Division of Endocrinology in [place], [place] [address] [place] [phone] Praveena Monge M.B., B.Ch., Ph.D. [address] [place] [phone] 11/04/2024 1:00 PM ACCOUNTS MANAGER Clinical Support Department of Nutrition and Diabetes Education in [place], [place] [address] [place] [phone] Praveena Monge M.B., B.Ch., Ph.D. [address] [place] [phone] Luzma Portillo R.N. [address] [place] [phone] 11/15/2024 7:00 AM ACCOUNTS MANAGER Clinical Communication Virtual Review in [place], [place] 200 [place] [phone] 11/18/2024 7:30 AM ACCOUNTS MANAGER Appointment Department of Radiology, [facility], in [place], [place] [address] [place] [phone] Krista Camacho M.D. [address] [place] [phone] 11/22/2024 3:30 PM ACCOUNTS MANAGER Office Visit Breast Diagnostic Clinic in [place], [place] [address] [place] [phone] Krista Camacho M.D. [address] [place] [phone] Health Maintenance Due Date Last Done Comments [...] this topic Medical Devices Implanted Type Area Parts Coordinator Device Identifier Shelf Expiration Date Model / Serial / Lot Clp Rsp Hmst Endo 235 - [id number] - [id number] Implanted:Qty: 1 on 09/15/2023 by Santy Canela M.D. at [facility] Silver/Gonda Hardware e.g. pins/screw s/rods N/A: Descending Colon [employer] [id number] 03/26/2026 [id number] 10 / [id number] Clp Rsp Hmst Endo 235 - [id number] - [id number] Implanted:Qty: 1 on 09/15/2023 by Santy Canela M.D. at [facility] Silver/[employer]onda Hardware e.g. pins/screw s/rods N/A: Descending Colon [employer] [id number] 03/26/2026 [id number] 10 / [id number] 0 Imaging Marker Imaging Marker Bilateral: Breast [...] Complication (HCC) COLONOSCOPY Routine 09/15/2023 7:41 AM ACCOUNTS MANAGER Screening Colon Cancer Average Risk COLOGUARD Routine 08/26/2022 5:45 AM ACCOUNTS MANAGER Screening Cancer Colon HIV-1 P24 AG, HIV-1/2 [...] was ordered in the context of a [facility] Cyt[facility] case; this result should be interpreted within the context of the [facility] cytology report. ----ADDITIONAL INFORMATION---- Testing was performed using the kanchan HPV assay ([employer] This report is intended for use in clinical monitoring and management of patients. It is not intended for use in medical-legal applications. This test has been modified from the criminal investigative agent's instructions. Its performance characteristics were determined by [facility] in a manner consistent with CLIA requirements. This test has not been cleared or approved by the U.S. Food and Drug Administration. 07/29/2024 9:15 AM CDT 08/01/2024 8:17 AM CDT Marva Alexander CNM, D.N.P. LAB MICROBIOLOGY - GE NERAL ORDERABLES Final Result [facility] [address] [place] [address] [facility] [address] [place] [address] [place] [address] * ThinPrep w/HPV Co-Test Screen (07/29/2024 9:15 [...] performed on the liquid-based cytology specimen at [facility] (CLIA #[id number]), [address] [place] [address]. This test has been modified from the criminal investigative agent's instructions. Its performance characteristics were determined by [facility] in a manner consistent with CLIA requirements. [...] ORDERA BLES Final Result Performing Organization Address City/[facility]/ZIP Co de Phone Number [facility] [address] [place] [address], [place] [facility] [address] [facility] [address] [place] [address] * BI Breast Screening Bilateral with Tomosynthesis [...] PM CDT 05/24/2024 4:36 PM CDT Praveena Gamboa, B.Ch., Ph.D. LAB BLOOD ADD-ON Final Result [facility] [address] [place] [address], [facility] [address] [place] [address] * (ABNORMAL) Basic Metabolic Panel (05/10/2024 7:42 [...] ADD-ON Final R esult Performing Organization Address City/[facility] Co de Phone Number [facility] [address], [place] [address], [place] OWAT [facility] in [place] [address] [place] [address] * (ABNORMAL) Albumin, Random, Urine (02/22/2024 12:13 PM CDT) Albumin, Random, U <5.0 mg/L 2023 8:47 AM CDT DTL Comment: ----ADDITIONAL INFORMATION---- This test has been modified from the criminal investigative agent's instructions. Its performance characteristics were determined by [facility] in a manner consistent with CLIA requirements. [...] ORDERA BLES Final Result Performing Organization Address City/[facility]/ZIP Co de Phone Number [facility] [address] [place] [address], [facility] DTL [facility] [address] [place] [address] * Lipid Panel (02/22/2024 11:58 AM CDT) [...] B.Ch., Ph.D. LAB BLOOD ADD-ON Final Result [facility] [address] [place] [address], [place] DTL [facility] [address] [place] [address] * Cologuard-Sent Out Lab (08/26/2022 5:45 AM ACCOUNTS MANAGER) Result Negative Negative 08/30/2022 9:22 AM ACCOUNTS MANAGER EXLI Comment: NEGATIVE TEST RESULT. A negative [...] (Donald Solares al, N Engl J Med 2014;370(14):1408-2939) The normal value (reference range) for this assay is negative. COLOGUARD RE-SCREENING RECOMMENDATION: Periodic colorectal cancer screening is an important part of preventive healthcare for asymptomatic individuals at average risk for colorectal cancer. Following a negative Cologuard result, the [place] Cancer Society and U.S. Multi-Society Task Force screening guidelines recommend a Cologuard re-screening interval of 3 years. References: [place] Cancer Society Guideline for Colorectal Cancer Screening: https://www.cancer.org/cancer/rmfyt-wbijdx-bvpusg/detection- diagnosis-staging/acs-recommendations.html.; Ponce PEACOCK, Umang STRONG, Taty StoutK, Colorectal Cancer Screening: Recommendations for Physicians and Patients from the U.S. Multi-Society Task Force on Colorectal Cancer Screening , Am J Gastroenterology 2017; 112:4204-9426. TEST DESCRIPTION: Composite algorithmic analysis of stool [...] (Donald Solares al, N Engl J Med 2014;370(14):8202-9164.) Cologuard may produce a false negative or false positive result (no colorectal cancer or precancerous polyp present at colonoscopy follow up). A negative Cologuard test result does not guarantee the absence of CRC or advanced adenoma (pre-cancer). The current Cologuard screening interval is every 3 years. ([place] Cancer Society and U.S. Multi-Society Task Force). Cologuard performance data in a 10,000 patient pivotal study using colonoscopy as the reference method can be accessed at the following location: www.[employer].IO/results. Additional description of the Cologuard test process, warnings and precautions can be found at www.[employer] CaptureogMW[employer]rd.com. Stool (Stool) 08/26/2022 5:4 5 AM ACCOUNTS MANAGER 08/27/2022 12:31 PM ACCOUNTS MANAGER us Angelique Lopez M.D. LAB BODY FLUIDS AND STOOL S ORDERABLES Final Result [facility] [address] [place] [address] EXLI [employer] [address] [facility], [address] [place] [address] * HIV-1 p24 Ag, HIV-1/2 Ab Scrn, [...] BLES Final Result [facility] [address] [place] [address], [facility] from Last 3 Months or Most Recently Relevant to Health Maintenance Insurance [id number] [place] [id number] [place] [address] Care Teams Animal Skinner Relationship Specialty Start Date End Date Demetrice Hyde M.D. [address] [phone] PCP - General 11/06/22
--- OUTSIDE RECORDS SUMMARY | 2024-10-15 14:42 | XMS_ITS | Encounter Summary ---
Author Organization [facility] Address [address] [place] [address] Care Team Providers Care Cash Applications Coordinator Name Role Phone Demetrice Hyde M.D. Primary Care Provider + Reason for Referral * Specialty Diagnoses / Procedures Referred By Contac t Referred To Contact Diagnoses Diabetes Mellitus Type 1 Without Complication (HCC) Praveena Monge M.B., B.Ch., Ph.D. [address] [place] [phone] Phone: tel: fax: [facility] Referral ID Status Reason Start Date Expiration Date Visits Re quested Visits Authorized WARE TECHNICIAN Encounter Details Date Type Department Care Team (Late st Contact Info) Description 09/21/2024 Orders Only Division of Endocrinology in [place], [place] [address] [place] [phone] Praveena Monge M.B., B.Ch., Ph.D. [address] [place] [phone] Diabetes Mellitus Type 1 Without Complication (HCC) [...] often do you attend chur ch or religion services? Never 11/21/2022 Do you belong to any clubs o r organizations such as voodoo groups, unions, fraternal or athletic groups, or [...] Answer Date Recorded PHQ-2 Score 0 07/29/2024 [facility] of Occupat ional Health - Occupational Stress [...] your living situation today? I have a [facility] place to live 01/19/2024 Education Answer Date Recorded What is the highest level of school you have completed or the highest degree you have received? 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 [address] [place] [phone] 10/25/2024 7:30 AM SOFTWARE TECHNICIAN Appointment Department of Laboratory Medicine in [place], [place] [address] [place] [phone] Praveena Monge M.B., B.Ch., Ph.D. [address] [place] [phone] 10/25/2024 8:10 AM SOFTWARE TECHNICIAN Appointment Department of Laboratory Medicine in [place], [place] [address] [place] [phone] Praveena Monge M.B., B.Ch., Ph.D. [address] [place] [phone] 11/04/2024 10:30 AM SOFTWARE TECHNICIAN Office Visit Division of Endocrinology in [place], [place] [address] [place] [phone] Praveena Monge M.B., B.Ch., Ph.D. [address] [place] [phone] 11/04/2024 1:00 PM SOFTWARE TECHNICIAN Clinical Support Department of Nutrition and Diabetes Education in [place], [place] [address] [place] [phone] Praveena Monge M.B., B.Ch., Ph.D. [address] [place] [phone] Luzma Portillo R.N. [address] [place] [phone] 11/15/2024 7:00 AM SOFTWARE TECHNICIAN Clinical Communication Virtual Review in [place], [place] 200 [place] [phone] 11/18/2024 7:30 AM SOFTWARE TECHNICIAN Appointment Department of Radiology, [facility], in [place], [place] [address] [place] [phone] Krista Camacho M.D. [address] [place] [phone] 11/22/2024 3:30 PM SOFTWARE TECHNICIAN Office Visit Breast Diagnostic Clinic in [place], [place] [address] [place] [phone] Krista Camacho M.D. [address] [place] [phone] Scheduled Referrals Name Type Priority Associated Diagnoses Orde r Schedule Nutrition - hematology nurse educator visit (clinic) Outpatient Referral Routine Diabetes Mellitus Type 1 Without Complication (HCC) Expected: 09/21/2024, Expires: 09/21/2025 documented as of this encounter Visit Diagnoses Diagnosis Diabetes Mellitus Type 1 Without Complication (HCC)- Primary documented in this encounter Additional Health Concerns Assessment Noted Time PHQ-9 Depression Total Score: 0 07/29/20 24 8:08 AM CDT documented as of this encounter Care Teams Cash Applications Coordinator Relationship Specialty Start Date End Date Demetrice Hyde M.D. [address] [phone] PCP - General 11/06/22 documented as of this encounter
--- OUTSIDE RECORDS SUMMARY | 2024-10-15 14:42 | XMS_ITS | Referral Summary ---
Author Organization [facility] Address [address] [place] [address] Care Team Providers Care Emissions Testing Technician Name Role Phone Demetrice Hyde M.D. Primary Care Provider + Source Comments Patient records contain information from all sites at [facility]. For routine questions regarding patient records, call [phone] during business hours, M-F 8:00 AM - 5:00 PM Central Time. Record requests for emergency care only can be directed to [phone] at any time.[facility] Encounters Date Type Department Care Team Description 09/21/2024 Orders Only Division of Endocrinology in [place], [place] [address] [place] [phone] Praveena Monge M.B., B.Ch., Ph.D. Diabetes Mellitus Type 1 Without Complication (HCC) (Primary Dx) 08/22/2024 Clinical Communication Breast Diagnostic Clinic in [place], [place] [address] [place] [phone] Krista Camacho M.D. 08/12/2024 Clinical Communication Division of Endocrinology in [place], [place] [address] [place] [phone] Praveena Monge M.B., B.Ch., Ph.D. [employer] 08/11/2024 8:00 AM CDT Immunization Department of Family Medicine, [facility], in [place], [place] [address] [place] [phone] Need Vaccine Immunization (Primary Dx) 07/29/2024 8:30 AM CDT Office Visit Department of Obstetrics and Gynecology in [address] [phone] Marva Alexander CNM, D.N.P. Preventive Gynecological Exam (Primary Dx); Atrophy Vagina Due To Estrogen Deficiency; Cancer Breast Family History; Cervical Dysplasia Personal History; Neoplasia Vaginal Intraepithelial Personal History 07/28/2024 Refill Department of Internal Medicine in [address] [phone] Demetrice Hyde M.D. Med Refill 07/26/2024 Refill Department of Family Medicine, [facility], in [address] [phone] Demetrice Hyde M.D. Med Refill from Last [...] She follows with the breast clinic in [place]. Breast clinic recommendations include: 1. Clinical breast [...] laser therapy that can be done at [facility] in [place] but payment out of pocket is required and a series of treatments is needed. She is still considering this and will let us know if she would like to move forward. I would also want to check with [facility] regarding how that would affect surveillance [...] drink = 0.6 oz pur e alcohol) [facility] Utilities Answer Date Recorded In the [...] often do you attend chur ch or hinduism services? 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 Not on file N ot on file Last Filed Vital Signs Vital Sign Reading Time Taken Comments Blood Pressure 118/75 07/29/2024 8:06 AM CDT Pulse 64 05/24/2024 3:10 PM CDT Temperature 36.3 C (97.4 F) 01/19/2024 7:41 AM CDT Respiratory Rate 20 09/15/2023 9:22 AM ADMISSIONS COORDINATOR Oxygen Saturation 99% 09/15/2023 9:22 AM ADMISSIONS COORDINATOR Inhaled Oxygen Concentration - - Weight 73.1 kg (161 lb 2.5 oz) 07/29/2024 8:06 A M CDT Height 168.5 cm (5' 6.34) 07/29/2024 8:06 AM CD T Body Mass Index 25.75 07/29/2024 8:06 AM CDT Plan of Treatment Upcoming Encounters Date Type Department Care Team (Late st Contact Info) Description 10/21/2024 9:15 AM ADMISSIONS COORDINATOR Comprehensive Visit Department of Ophthalmology in [place], [place] [address] [place] [phone] Boubacar Alvarado M.D. [address] [phone] 10/25/2024 7:30 AM ADMISSIONS COORDINATOR Appointment Department of Laboratory Medicine in [place], [place] [address] [place] [phone] Praveena Monge M.B., B.Ch., Ph.D. [address] [place] [phone] 10/25/2024 8:10 AM ADMISSIONS COORDINATOR Appointment Department of Laboratory Medicine in [place], [place] [address] [phone] Praveena Monge M.B., B.Ch., Ph.D. [address] [place] [phone] 11/04/2024 10:30 AM ADMISSIONS COORDINATOR Office Visit Division of Endocrinology in [address] [phone] Praveena Monge M.B., B.Ch., Ph.D. [address] [place] [phone] 11/04/2024 1:00 PM ADMISSIONS COORDINATOR Clinical Support Department of Nutrition and Diabetes Education in [address] [phone] Praveena Monge M.B., B.Ch., Ph.D. [address] [place] [phone] Luzma Portillo R.N. [address] [place] [phone] 11/15/2024 7:00 AM ADMISSIONS COORDINATOR Clinical Communication Virtual Review in [place], [place] 200 [place] [phone] 11/18/2024 7:30 AM ADMISSIONS COORDINATOR Appointment Department of Radiology, [facility], in [address] [phone] Krista Camacho M.D. [address] [place] [phone] 11/22/2024 3:30 PM ADMISSIONS COORDINATOR Office Visit Breast Diagnostic Clinic in [address] [phone] Krista Camacho M.D. [address] [place] [phone] Medical Devices Implanted Type Area Job Printer Apprentice Device Identifier Shelf Expiration Date Model / Serial / Lot Clp Rsp [facility] End[facility] 235 - [id number] - [id number] Implanted:Qty: 1 on 09/15/2023 by Santy Canela M.D. at [facility] Silver/[employer] Hardware e.g. pins/screw s/rods N/A: Descending Colon [employer] [id number] 03/26/2026 [id number] 10 / [id number] 0 Clp Rsp [facility] End[facility] 235 - [id number] - [id number] Implanted:Qty: 1 on 09/15/2023 by Santy Canela M.D. at [facility] Silver/[employer] Hardware e.g. pins/screw s/rods N/A: Descending Colon [employer] [id number] 03/26/2026 [id number] 0 Imaging Marker Imaging Marker Bilateral: [...] Complication (HCC) COLONOSCOPY Routine 09/15/2023 7:41 AM ADMISSIONS COORDINATOR Screening Colon Cancer Average Risk COLOGUARD Routine 08/26/2022 5:45 AM ADMISSIONS COORDINATOR Screening Cancer Colon HIV-1 P24 AG, HIV-1/2 [...] PCR Negative Negative 08/02/2024 2:21 PM CDT [facility] Comment: The following Other High Risk HPV types were not detected: 31, 33, 35, 39, 45, 51, 52, 56, 58, 59, 66, and 68 This test was ordered in the context of a [facility] Cytology case; this result should be interpreted within the context of the [facility] cytology report. ----ADDITIONAL INFORMATION---- Testing was performed using the kanchan HPV assay ([place] [employer] This report is intended for use in clinical monitoring and management of patients. It is not intended for use in medical-legal applications. This test has been modified from the firesetter's instructions. Its performance characteristics were determined by [facility] in a manner consistent with CLIA requirements. This test has not been cleared or approved by the U.S. Food and Drug Administration. 07/29/2024 9:15 AM CDT 08/01/2024 8:17 AM CDT us Marva Alexander CNM, D.N.P. LAB MICROBIOLOGY - NERAL ORDERABLES Final Result [facility] [address] [place] [address] [facility] [address] [place] [address] [place] [address] * ThinPrep w/HPV Co-Test Screen (07/29/2024 9:15 [...] performed on the liquid-based cytology specimen at [facility] (CLIA #[id number]), [address] [place] [address]. This test has been modified from the firesetter's instructions. Its performance characteristics were determined by [facility] in a manner consistent with CLIA [...] LAB PAP PATHDX ORDERA BLES Final Result [facility] [address] [place] [address], [place] [facility] [address] [facility] [address] [place] [address] * BI Breast Screening Bilateral with Tomosynthesis [...] B.Ch., Ph.D. LAB BLOOD ADD-ON Final Result [facility] [address] [place] [address], [facility] [address] [place] [address] * (ABNORMAL) Basic Metabolic Panel (05/10/2024 7:42 [...] ADD-ON Final R esult Performing Organization Address City/[facility]/ZIP Co de Phone Number [facility] [address] [place] [address], [place] [facility] in [place] [address] [place] [address] * (ABNORMAL) Albumin, Random, Urine (02/22/2024 12:13 PM CDT) Albumin, Random, U <5.0 mg/L 2023 8:47 AM CDT DTL Comment: ----ADDITIONAL INFORMATION---- This test has been modified from the firesetter's instructions. Its performance characteristics were determined by [facility] in a manner consistent with CLIA [...] ORDERA BLES Final Result Performing Organization Address City/[facility]/ZIP Co de Phone Number [facility] [address] [place] [address], [place] [facility] [address] [place] [address] * Lipid Panel (02/22/2024 11:58 AM CDT) [...] B.Ch., Ph.D. LAB BLOOD ADD-ON Final Result [facility] [address] [place] [address], [facility] [address] [place] [address] * Cologuard-Sent Out Lab (08/26/2022 5:45 AM ADMISSIONS COORDINATOR) Result Negative Negative 08/30/2022 9:22 AM ADMISSIONS COORDINATOR [facility] Comment: NEGATIVE TEST RESULT. A negative [...] Kay. et al, N Engl J Med 2014;370(14):0908-6480) The normal value (reference range) for this assay is negative. COLOGUARD RE-SCREENING RECOMMENDATION: Periodic colorectal cancer screening is an important part of preventive healthcare for asymptomatic individuals at average risk for colorectal cancer. Following a negative Cologuard result, the [place] Cancer Society and U.S. Multi-Society Task Force screening guidelines recommend a Cologuard re-screening interval of 3 years. References: [place] [employer] Guideline for Colorectal Cancer Screening: https://www.cancer.org/cancer/nfhnz-iymhrm-fqtrju/detection- diagnosis-staging/acs-recommendations.html.; Ponce PEACOCK, Umang STRONG, Taty StoutK, Colorectal Cancer Screening: Recommendations for Physicians and Patients from the U.S. Multi-Society Task Force on Colorectal Cancer Screening , Am J Gastroenterology 2017; 112:5052-7540. TEST DESCRIPTION: Composite algorithmic analysis of stool [...] (Donald Solares al, N Engl J Med 2014;370(14):4987-4046.) Cologuard may produce a false negative or false positive result (no colorectal cancer or precancerous polyp present at colonoscopy follow up). A negative Cologuard test result does not guarantee the absence of CRC or advanced adenoma (pre-cancer). The current Cologuard screening interval is every 3 years. ([place] Cancer Society and U.S. Multi-Society Task Force). Cologuard performance data in a 10,000 patient pivotal study using colonoscopy as the reference method can be accessed at the following location: www.Blippar/results. Additional description of the Cologuard test process, warnings and precautions can be found at www.Intrins[employer] MaterialsogiDevicesrd.com. Stool (Stool) 08/26/2022 5:4 5 AM ADMISSIONS COORDINATOR 08/27/2022 12:31 PM ADMISSIONS COORDINATOR Angelique Lopez M.D. LAB BODY FLUIDS AND STOOL S ORDERABLES Final Result [employer] [address] [place] [address] [facility] [address] [place] [address], [address] [place] [address] * HIV-1 p24 Ag, HIV-1/2 Ab Scrn, [...] ORDERA BLES Final Result Performing Organization Address City/State/[facility] Co de Phone Number [facility] [address] [place] [address], [facility] from Last 3 Months or Most Recently Relevant to Health Maintenance Insurance [id number] [place] [phone] [employer] Care Teams Emissions Testing Technician Relationship Specialty Start Date End Date Demetrice Hyde M.D. [address] [place] [phone] PCP - General 11/06/22
--- OUTSIDE RECORDS SUMMARY | 2024-10-15 14:42 | XMS_ITS | Encounter Summary ---
Author Organization [facility] Address [address] [place] [address] Care Team Providers Care Ict Analyst Name Role Phone Demetrice Hyde M.D. Primary Care Provider + Encounter Details Date Type Department Care Team (Late st Contact Info) Description 08/12/2017 Historical Ophthalmology [facility] Boubacar Alvarado M.D. [address] [phone] Social History Tobacco Use Types Packs/Day Years Used Date Smoking Tobacco: Never Comments No Sex and Gender Information Value Date Recorded Sex Assigned at Female 12/01/2017 8:02 AM MECHANICAL ENGINEERING INTERN Legal Sex Female 12:21 PM MECHANICAL ENGINEERING INTERN Gender Identity Female 12/01/2017 8:02 AM MECHANICAL ENGINEERING INTERN Sexual Orientation Straight 12/01/2017 8: 02 AM MECHANICAL ENGINEERING INTERN documented as of this encounter Progress Notes [...] both eyes. CDM Reports - EYEGEN Id: [id number] Status: Fnl documented in this encounter Plan of Treatment Upcoming Encounters Date Type Department Care Team (Late st Contact Info) Description 10/21/2024 9:15 AM MECHANICAL ENGINEERING INTERN Comprehensive Visit Department of Ophthalmology in [place], [place] [address] [place] [phone] Boubacar Alvarado M.D. [address] [phone] 10/25/2024 7:30 AM MECHANICAL ENGINEERING INTERN Appointment Department of Laboratory Medicine in [place], [place] [address] [phone] Praveena Monge M.B., B.Ch., Ph.D. [address] [place] [phone] 10/25/2024 8:10 AM MECHANICAL ENGINEERING INTERN Appointment Department of Laboratory Medicine in [place], [place] [address] [phone] Praveena Monge M.B., B.Ch., Ph.D. [address] [place] [phone] 11/04/2024 10:30 AM MECHANICAL ENGINEERING INTERN Office Visit Division of Endocrinology in [place], [place] [address] [place] [phone] Praveena Monge M.B., B.Ch., Ph.D. [address] [place] [phone] 11/04/2024 1:00 PM MECHANICAL ENGINEERING INTERN Clinical Support Department of Nutrition and Diabetes Education in [place], [place] [address] [place] [phone] Praveena Monge M.B., B.Ch., Ph.D. [address] [place] [phone] Luzma Portillo R.N. [address] [place] [phone] 11/15/2024 7:00 AM MECHANICAL ENGINEERING INTERN Clinical Communication Virtual Review in [place], [place] [address] [place] [phone] 11/18/2024 7:30 AM MECHANICAL ENGINEERING INTERN Appointment Department of Radiology, [facility], in [place], [place] [address] [place] [phone] Krista Camacho M.D. [address] [place] [phone] 11/22/2024 3:30 PM MECHANICAL ENGINEERING INTERN Office Visit Breast Diagnostic Clinic in [place], [place] [address] [place] [phone] Krista Camacho M.D. [address] [place] [phone] documented as of this encounter Visit Diagnoses Not on filedocumented in this encounter Additional Health Concerns Infection Onset Date Last Indicated Resolved Time COVID19 Pending 12/20/2020 12/21/2020 12/21/2020 8 :37 PM MECHANICAL ENGINEERING INTERN COVID19 Pending 06/10/2021 06/11/2021 06/11/2021 1 2:17 PM CDT COVID19 Pending 06/11/2021 06/11/2021 06/12/2021 1 :45 PM CDT COVID19 Pending 09/28/2021 09/29/2021 09/30/2021 1 0:57 AM MECHANICAL ENGINEERING INTERN COVID19 Pending 12/13/2021 12/13/2021 12/14/2021 1 2:05 AM MECHANICAL ENGINEERING INTERN COVID19 09/11/2022 09/11/2022 10/01/2022 5:05 AM MECHANICAL ENGINEERING INTERN Assessment Noted Time PHQ-9 Depression Total Score: 0 03/12/20 17 8:45 AM CDT documented as of this encounter Care Teams Ict Analyst Relationship Specialty Start Date End Date Demetrice Hyde M.D. [address] [phone] PCP - General 11/06/22 documented as of this encounter
--- OUTSIDE RECORDS SUMMARY | 2024-10-15 14:42 | XMS_ITS | Encounter Summary ---
Author Organization [facility] Address [address] [place] [address] Care Team Providers Care Human Resources Technician Name Role Phone Demetrice Hyde M.D. Primary Care Provider + Reason for Referral * MRI/CAT/PET Scan (Routine) - Authorized Specialty Diagnoses / Procedures Referred By Contac t Referred To Contact Radiology Diagnoses Cancer Breast Family History Mammographic Extreme Density, Bilateral Breasts Procedures MR Breast Bilateral without and with IV Contrast MD MRI BREAST WOW CNTRST W/CAD BILAT Krista Camacho M.D. [address] [place] [phone] Phone: tel: fax: [facility] Referral ID Status Reason Start Date Expiration Date V isits Requested Visits Authorized [id number] Authorized 08/24/2024 08/24/2025 1 1 R TELEVISION CONSOLE MONITOR Encounter Details Date Type Department Care Team (Late st Contact Info) Description 08/22/2024 Clinical Communication Breast Diagnostic Clinic in [place], [place] [address] [place] [phone] Krista Camacho M.D. [address] [place] [phone] Social History Tobacco Use Types Packs/Day Years Used Date Smoking Tobacco: Never Passive Smoke Exposure: Never Smokeless Tobacco: Never Alcohol Use Standard Drinks/Week Comments Never 0 (1 standard drink = 0.6 oz pur e alcohol) [facility] Utilities Answer Date Recorded In the past [...] often do you attend chur ch or rastafarian services? Never 11/21/2022 Do you belong to any clubs o r organizations such as islam groups, unions, fraternal or athletic groups, or [...] Answer Date Recorded PHQ-2 Score 0 07/29/2024 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 [address] [place] [phone] 10/25/2024 7:30 AM COLOR TELEVISION CONSOLE MONITOR Appointment Department of Laboratory Medicine in [place], [place] [address] [place] [phone] Praveena Monge M.B., B.Ch., Ph.D. [address] [place] [phone] 10/25/2024 8:10 AM COLOR TELEVISION CONSOLE MONITOR Appointment Department of Laboratory Medicine in [place], [place] [address] [place] [phone] Praveena Monge M.B., B.Ch., Ph.D. [address] [place] [phone] 11/04/2024 10:30 AM COLOR TELEVISION CONSOLE MONITOR Office Visit Division of Endocrinology in [place], [place] [address] [place] [phone] Praveena Monge M.B., B.Ch., Ph.D. [address] [place] [phone] 11/04/2024 1:00 PM COLOR TELEVISION CONSOLE MONITOR Clinical Support Department of Nutrition and Diabetes Education in [place], [place] [address] [place] [phone] Praveena Monge M.B., B.Ch., Ph.D. [address] [place] [phone] Luzma Portillo R.N. [address] [place] [phone] 11/15/2024 7:00 AM COLOR TELEVISION CONSOLE MONITOR Clinical Communication Virtual Review in [place], [place] 200 [place] [phone] 11/18/2024 7:30 AM COLOR TELEVISION CONSOLE MONITOR Appointment Department of Radiology, [facility], in [place], [place] [address] [place] [phone] Krista Camacho M.D. [address] [place] [phone] 11/22/2024 3:30 PM COLOR TELEVISION CONSOLE MONITOR Office Visit Breast Diagnostic Clinic in [place], [place] [address] [place] [phone] Krista Camacho M.D. [address] [place] [phone] Scheduled Orders Name Type Priority Associated Diagnoses [...] documented as of this encounter Care Teams Human Resources Technician Relationship Specialty Start Date End Date Demetrice Hyde M.D. [address] [place] [phone] PCP - General 11/06/22 documented as of this encounter
[2024-10-15] MEDS: ACETAMINOPHEN 500 MG TABLET 1000 MG PO (15:22)
--- NOTE | 2024-10-15 15:28 | CRLHL7_ITS ---
For Patients: As a result of the Cures Act, medical imaging exams and procedure reports are released immediately into your electronic medical record. You may view this report before your referring provider. If you have questions, please contact your health care provider. INDICATION: Distal radial and ulnar fractures, status post reduction. TECHNIQUE: Right radiographs, 3 views. COMPARISON: Same day radiographs right wrist. FINDINGS/IMPRESSION: Interval placement of overlying splint material limits evaluation subtle fractures. Acute comminuted displaced, dorsally angulated fracture of the distal radial metaphysis with intra-articular extension. Acute mildly displaced fracture of the ulnar styloid process. Minimally improved alignment of fracture fragments status post reduction. No new fractures identified. Dictated by Dony Zarate MD @ 10/15/2024 4:00:13 PM (Electronically Signed)
== END 2024-10-15 16:58 | disposition home or self-care (01) ==
PROVIDERS: Emergency Provider Family Medicine; PCP Student in an Organized Health Care Education/Training Program
DX: S52.501A Unspecified fracture of the lower end of right radius, initial encounter for closed fracture (principal); S52.601A Unspecified fracture of lower end of right ulna, initial encounter for closed fracture; W00.9XXA Unspecified fall due to ice and snow, initial encounter; Y93.21 Activity, ice skating
CPT/HCPCS: 25605; 73110; 99284; A9270

== ENCOUNTER 2024-10-21 06:05 | Day surgery (SDC) | payer OTHER, SELFPAY ==
[2024-10-21] VITALS (7 sets, daily range): BP systolic 99–124; BP diastolic 62–86; PULSE 60–73; RESP 16; TEMP 36.3–36.6; O2SAT 93–98; BMI 25.7
--- OUTSIDE RECORDS SUMMARY | 2024-10-21 06:07 | XMS_ITS | Clinical Summary ---
Author Organization [facility] Address [address] [place] [address] Care Team Providers Care Cistern Room Operator Name Role Phone Demetrice Hyde M.D. Primary Care Provider + Source Comments Patient records contain information from all sites at [facility]. For routine questions regarding patient records, call [phone] during business hours, M-F 8:00 AM - 5:00 PM Central Time. Record requests for emergency care only can be directed to [phone] at any time.[facility] Allergies Active Allergy Reactions Criticality Noted Date [...] She follows with the breast clinic in [place]. Breast clinic recommendations include: 1. Clinical breast [...] laser therapy that can be done at [facility] in [place] but payment out of pocket is required and a series of treatments is needed. She is still considering this and will let us know if she would like to move forward. I would also want to check with DIE CUTTER Oncology regarding how that would affect surveillance [...] Encounters Date Type Department Care Team Description 10/19/2024 2:00 PM BRANCH LENDING MANAGER Office Visit Department of Family Medicine, [facility], in [place], [place] [address], [place] [address] Laquita Chew APRN, C.N.P., D.N.P. Preoperative Exam (Primary Dx); Seizure Disorder (HCC); Diabetes Mellitus Type 1 Without Complication (HCC) 10/17/2024 Clinical Communication Department of [facility], [facility], in [place], [place] [address] [phone] Demetrice Hyde M.D. Communication (AGUILAR needed ) 09/21/2024 Orders Only Division of Endocrinology in [place], [place] [address] [place] [address] Praveena Monge M.B., B.Ch., Ph.D. Diabetes Mellitus Type 1 Without Complication (HCC) (Primary Dx) 08/22/2024 Clinical Communication Breast Diagnostic Clinic in [place], [place] [address] [place] [address] Krista Camacho M.D. 08/12/2024 Clinical Communication Division of Endocrinology in [place], [place] [address] [place] [address] Praveena Monge M.B., B.Ch., Ph.D. [employer] 08/11/2024 8:00 AM CDT Immunization Department of Family Medicine, [facility], in [place], [place] [address] [place] [address] Need Vaccine Immunization (Primary Dx) 07/29/2024 8:30 AM CDT Office Visit Department of Obstetrics and Gynecology in [address] [phone] Marva Alexander CNM, D.N.P. Preventive Gynecological Exam (Primary Dx); Atrophy Vagina Due To Estrogen Deficiency; Cancer Breast Family History; Cervical Dysplasia Personal History; Neoplasia Vaginal Intraepithelial Personal History 07/28/2024 Refill Department of Internal Medicine in [address] [phone] Demetrice Hyde M.D. Med Refill 07/26/2024 Refill Department of Family Medicine, [facility], in [address] [address] Demetrice Hyde M.D. Med Refill from Last [...] Cancer Other 4 Cataracts Paternal Grandfather Nando Rogerss Coronary artery disease Paternal Grandfather Nando julian Congestive heart failure Diabetes Paternal Grandfather Nando Rogerss Hypertension Paternal Grandfather Nando Avilez Did r eceive treatment Cataracts Paternal Grandmother Hypertension Paternal Grandmother Breast cancer Sister [address] Dr. Caryn Avilez Finished treatment and cancer free Hypertension Sister [address] Dr. Caryn Avilez Hypothyroidism Sister [address] Dr. Caryn Avilez Thyroid disease Sister [address] Dr. Caryn Avilez Breast cancer Sister 2 Zuleyma Xavier Finished tr eatment and cancer free Clotting disorder Sister 2 Zuleyma Basedrick pulmona ry blood clot Diabetes Sister 2 Zuleyma Baxiomynet Type 2 Relation Name Status Comments Father Galo Avilez (Age 77) d. [place] Father's Brother d. cardiac related Maternal Cousin [...] negati ve genetic testing Sister 2 Zuleyma Meekeugene Alive Social History Tobacco Use Types Packs/Day Years Used Date Smoking Tobacco: Never Passive Smoke Exposure: Never Smokeless Tobacco: Never Tobacco Cessation:Counseling Given: Not Answered Alcohol Use Standard Drinks/Week Comments Never 0 (1 standard drink = 0.6 oz pur e alcohol) [facility] Utilities Answer Date Recorded In the past 12 months has e [employer], gas, oil, or water [employer] threatened to shut off services in your [...] often do you attend chur ch or methodist services? 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 Not on file N ot on file Last Filed Vital Signs Vital Sign Reading Time Taken Comments Blood Pressure 106/70 10/19/2024 1:[address] LENDING MANAGER [address] rage Pulse 59 10/19/2024 1:38 PM BRANCH LENDING MANAGER Temperature 36.4 C (97.6 F) 10/19/2024 1:38 PM BRANCH LENDING MANAGER Respiratory Rate 20 09/15/2023 9:22 AM BRANCH LENDING MANAGER Oxygen Saturation 99% 09/15/2023 9:22 AM BRANCH LENDING MANAGER Inhaled Oxygen Concentration - - Weight 72.9 kg (160 lb 11.5 oz) 10/19/2024 1:38 PM BRANCH LENDING MANAGER Height 168.5 cm (5' 6.34) 10/19/2024 1:38 PM CS T Body Mass Index 25.68 10/19/2024 1:38 PM BRANCH LENDING MANAGER Plan of Treatment Upcoming Encounters Date Type Department Care Team (Late st Contact Info) Description 10/25/2024 7:30 AM BRANCH LENDING MANAGER Appointment Department of Laboratory Medicine in [place], [place] [address] [place] [phone] Praveena Monge M.B., B.Ch., Ph.D. [address] [place] [phone] 10/25/2024 8:10 AM BRANCH LENDING MANAGER Appointment Department of Laboratory Medicine in [place], [place] [address] [place] [phone] Praveena Monge M.B., B.Ch., Ph.D. [address] [place] [phone] 11/04/2024 10:30 AM BRANCH LENDING MANAGER Office Visit Division of Endocrinology in [address] [phone] Praveena Monge M.B., B.Ch., Ph.D. [address] [place] [phone] 11/04/2024 1:00 PM BRANCH LENDING MANAGER Clinical Support Department of Nutrition and Diabetes Education in [address] [phone] Praveena Monge M.B., B.Ch., Ph.D. [address] [place] [phone] Luzma Portillo R.N. [address] [place] [phone] 11/15/2024 7:00 AM BRANCH LENDING MANAGER Clinical Communication Virtual Review in [place], [place] [address] [place] [address] 11/18/2024 7:30 AM BRANCH LENDING MANAGER Appointment Department of Radiology, [facility], in [address] [phone] Krista Camacho M.D. [address] [place] [phone] 11/22/2024 8:45 AM BRANCH LENDING MANAGER Comprehensive Visit Department of Ophthalmology in [place], [place] [address] [place] [phone] Boubacar Alvarado M.D. [address] [place] [phone] 11/22/2024 3:30 PM BRANCH LENDING MANAGER Office Visit Breast Diagnostic Clinic in [address] [phone] Krista Camacho M.D. [address] [place] [phone] Health Maintenance Due Date Last Done Comments CT Colonography 1972 FIT 1972 Hepatitis C Screening 1972 Diabetes Education 10/15/2021 10/15/2020, 04/20/2014 Diabetic Office Visit with Foot Exam 06/03/2024 06/03/2023, 06/03/2023, 06/24/2022, Additional history exists Dilated Eye Exam 09/28/2024 09/28/2023, , 10/10/2021, Additional history exists Depression Screening (Annual PHQ-2) 10/12/2024 Hemoglobin A1C 11/24/2024 05/24/2024, 02/09, 11/12/2023, Additional history exists Urine Albumin 02/21/2025 02/22/2024, 0604/2023, 11/21/2021, Additional history exists Creatinine Level (Kidney Function Test) 05/10/2025 05/10/2024, 02/22/2024, 03/18/2023, Additional history exists Potassium Level 05/10/2025 05/10/2024, 05/0 11/2021, 08/13/2021, Additional history exists Sodium Level 05/10/2025 05/10/2024, 05/0 11/2021, 08/13/2021, Additional history exists Mammogram 06/03/2025 06/03/2024, 020 02/2024, 05/21/2023, Additional history exists Cologuard 08/30/2025 08/30/2022, 08/26/2022 Office Visit for Blood Pressure Check / Re-check 10/19/2025 10/19/2024 Visit: Chronic Disease, age 18+ 10/19/2025 10/19/2024, 06/03/2023 Colonoscopy 09/15/2026 09/15/2023, 09/15/2023 Colorectal Cancer Screening 09/15/2026 Lipid (Cholesterol) Screening 02/21/2029 02/22/2024, 03/18/2023, 02/27/2022, Additional history exists DTaP,Tdap,and Td Vaccines (3 - Td or Tdap) 10/21/2031 10/21/2021, 09/05/2011, 10/12/2004 Hepatitis B Vaccines Completed 02/28/2013, 11/26/2012, 09/03/2012 HIV Screening Completed 05/17/2019 Zoster Vaccines Completed 12/15/2022, 09/10/2022 Pneumococcal vaccine (50+ years) Completed 06/03/2023, 02/24/2022, 09/05/2011, Additional history exists Influenza Vaccine Completed 07/29/2024, , 08/11/2022, Additional history exists COVID-19 Vaccine Completed 08/11/2024, , 07/01/2022, Additional history exists IPV Vaccines Aged Out No longer eligi ble based on patient's age to complete this topic Medical Devices Implanted Type Area Coal Deliverer Device Identifier Shelf Expiration Date Model / Serial / Lot Clp [facility] Endo 235 - [id number] - [id number] Implanted:Qty: 1 on 09/15/2023 by Santy Canela M.D. at [facility] [employer] Hardware e.g. pins/screw s/rods N/A: Descending Colon [id number] 03/26/2026 [id number] 10 / [id number] [facility] Endo 235 - [id number] - [id number] Implanted:Qty: 1 on 09/15/2023 by Santy Canela M.D. at [facility] [employer] Hardware e.g. pins/screw s/rods N/A: Descending Colon [id number] 03/26/2026 [id number] 10 / [id number] Imaging Marker Imaging Marker Bilateral: Breast [...] Complication (HCC) COLONOSCOPY Routine 09/15/2023 7:41 AM BRANCH LENDING MANAGER Screening Colon Cancer Average Risk COLOGUARD Routine 08/26/2022 5:45 AM BRANCH LENDING MANAGER Screening Cancer Colon HIV-1 P24 AG, [...] ordered in the context of a [facility] DIE CUTTER Cytology case; this result should be interpreted within the context of the DIE CUTTER cytology report. ----ADDITIONAL INFORMATION---- Testing was performed using the kanchan HPV assay ([place] [employer] This report is intended for use in clinical monitoring and management of patients. It is not intended for use in medical-legal applications. This test has been modified from the assembly operator's instructions. Its performance characteristics were determined by [facility] in a manner consistent with CLIA requirements. This test has not been cleared or approved by the U.S. Food and Drug Administration. 07/29/2024 9:15 AM CDT 08/01/2024 8:17 AM CDT us Marva Alexander CNM, D.N.P. LAB MICROBIOLOGY - [facility] ORDERABLES Final Result [facility] [address] [place] [address] [facility] [address] [place] [address] [place] [address] * ThinPrep w/HPV Co-Test Screen (07/29/2024 9:15 [...] performed on the liquid-based cytology specimen at [facility] (CLIA #[id number]), [address] [place] [address]. This test has been modified from the assembly operator's instructions. Its performance characteristics were determined by [facility] in a manner consistent with CLIA requirements. [...] CDT us Marva Alexander CNM, D.N.P. LAB PAP PATHDX ORDERA BLES Final Result [facility] [address] [place] [address], [facility]CY [address] [address] * BI Breast Screening Bilateral with Tomosynthesis [...] ASSESSMENT: BI-RADS: 1: Negative. Krista Camacho M.D. IMG BI PROCEDURES Final [...] B.Ch., Ph.D. LAB BLOOD ADD-ON Final Result [facility] [address] [place] [address], [facility] [address] [place] [address] * (ABNORMAL) Basic Metabolic Panel (05/10/2024 7:42 [...] M.D. LAB BLOOD ADD-ON Final R esult [facility] [address] [place] [address], [facility] in [place] [address], [place] [address] * (ABNORMAL) Albumin, Random, Urine (02/22/2024 12:13 PM CDT) Albumin, Random, U <5.0 mg/L 2023 8:47 AM CDT DTL Comment: ----ADDITIONAL INFORMATION---- This test has been modified from the assembly operator's instructions. Its performance characteristics were determined by [facility] in a manner consistent with CLIA requirements. [...] 12:13 PM CDT 02/22/2024 1:51 PM CDT Praveena Gamboa, B.Ch., Ph.D. LAB URINE ORDERA BLES Final Result [facility] [address] [place] [address], [facility] [address] [place] [address] * Lipid Panel (02/22/2024 11:58 AM CDT) [...] & [facility] [address] [place] [address], [facility] [address] [place] [address] * Cologuard-Sent Out Lab (08/26/2022 5:45 AM BRANCH LENDING MANAGER) Pathologist [facility] Result Negative Negative 08/30/2022 9:22 AM BRANCH LENDING MANAGER EXLI Comment: NEGATIVE TEST RESULT. A [...] screened with both Cologuard and colonoscopy. (Donald Greco et al, N Engl J Med 2014;370(14):2949-8385) The normal value (reference range) for this assay is negative. COLOGUARD RE-SCREENING RECOMMENDATION: Periodic colorectal cancer screening is an important part of preventive healthcare for asymptomatic individuals at average risk for colorectal cancer. Following a negative Cologuard result, the [place] Cancer Society and U.S. Multi-Society Task Force screening guidelines recommend a Cologuard re-screening interval of 3 years. References: [place] Cancer [employer] Guideline for Colorectal Cancer Screening: https://www.cancer.org/cancer/xcsiw-ecpppj-rlajos/detection- diagnosis-staging/acs-recommendations.html.; Ponce PEACOCK, Umang STRONG, Taty StoutK, Colorectal Cancer Screening: Recommendations for Physicians and Patients from the U.S. Multi-Society Task Force on Colorectal Cancer Screening , Am J Gastroenterology 2017; 112:1424-1867. TEST DESCRIPTION: Composite algorithmic analysis of stool [...] screened with both Cologuard and colonoscopy. (Donald rGeco et al, N Engl J Med 2014;370(14):7022-6240.) Cologuard may produce a false negative or false positive result (no colorectal cancer or precancerous polyp present at colonoscopy follow up). A negative Cologuard test result does not guarantee the absence of CRC or advanced adenoma (pre-cancer). The current Cologuard screening interval is every 3 years. ([place] Cancer Society and U.S. Multi-Society Task Force). Cologuard performance data in a 10,000 patient pivotal study using colonoscopy as the reference method can be accessed at the following location: www.[employer]/results. Additional description of the Cologuard test process, warnings and precautions can be found at www.bettercodes.org. Stool (Stool) 08/26/2022 5:4 5 AM BRANCH LENDING MANAGER 08/27/2022 12:31 PM BRANCH LENDING MANAGER us Angelique Olmos M.D. LAB BODY FLUIDS AND STOOL S ORDERABLES Final Result Performing Organization Address City/[facility]/ZIP Co de Phone Number [employer] [address] [place] [address] [facility] [employer] [address] [facility], [address] [place] [address] * HIV-1 p24 Ag, HIV-1/2 Ab Scrn, [...] 7:22 AM CDT 05/17/2019 3:13 PM CDT us Umesh Mathis M.D. LAB MICROBIOLOGY - BLOOD ORDERA BLES Final Result Performing Organization Address City/[facility]/ZIP Co de Phone Number [facility] [address] [place] [address], [facility] from Last 3 Months or Most Recently Relevant to Health Maintenance Insurance [id number] [id number] [place] [address] Care Teams Cistern Room Operator Relationship Specialty Start Date End Date Demetrice Hyde M.D. [address] [place] [phone] PCP - General 11/06/22
--- OUTSIDE RECORDS SUMMARY | 2024-10-21 06:07 | XMS_ITS | Clinical Summary ---
Author Organization [employer] [facility] s & ID[facility] Address [place], [place] [address] Care Team Providers Care Mud Car Worker Name Role Phone Eleni Bunn NP Unavailable Jeovany Chester MD Unavailable [phone] Irma Cherry MD Unavailable Juan Jose Garcia MD Unavailable Brendon Romeo MD Unavailable Marva Sims MD Unavailable [phone] Britany Bernal Unavailable Jon Davey MD Unavailable Unavailable Meng Lopez MD Unavailable Unavail able Henrietta Pugh DOCTOR OF PODIATRY Primary Care Provider Allergies Active Allergy Reactions [...] times daily. 40 tablet 11/09/2017 4:00 PM LICSW 11/09/19 18 Active acetaminophen (TYLENOL) 325 mg [...] loss of bladder function Later evaluation at [place] felt these symptoms all from seizure SVT [...] on file Legal Sex Female 7:18 AM LICSW Gender Identity Not on file Sexual Orientation [...] age 15-65 1987 Hepatitis C screening for ag e 18-79 1990 Pap test for age 21-65 05/28/2013 0, 05/28/2010, 03/27/2009 Tetanus booster 10/12/2014 10/12/2004 Depression screening for age 12+ 04/30/2017 04/30/20 16 Colonoscopy through age 75 2017 Lipids for age 45-75 2017 04/18/2010, 01/03/2010, 01/03/2009, Additional history exists Mammogram for age 45-75 2017 02/14/20 11, 03/29/2009, 06/26/2008 BMI (ht and wt on same day) for age 18+ 11/17/2017 11/17/2016 Pneumococcal series for age 50+ (2 of 2 - PCV) 2022 09/05/2011 Zoster (shingles) series for age 50+ (1 of 2) 2022 Influenza for age 50-64 06/12/2024 07/19/20 19, 07/22/2018, 07/28/2016, Additional history exists Tdap Completed 09/05/2011 (Comp leted outside of [facility]) COVID-19 vaccine series Completed 08/11/20 24, 07/28/2023, 07/01/2022, Additional history exists Procedures Procedure Name Priority Date/Time Associated Diagnosis Comments XR MAMMO BILAT SCREEN FFDM (IA) Routine 02/13/2011 6:48 PM CDT HISTORIAN DRAMATIC ARTS THIN PREP PAP DIAGNOSTIC IMAGED Routine 05/28/2010 [...] of Computer-Aided Detection. COMPARISON FILMS: Yes 04/03/10 [facility] FINDINGS: Mammographically, the [...] of Computer-Aided Detection. COMPARISON FILMS: Yes 04/03/10 [facility] FINDINGS: Mammographically, the breast tissue is heterogeneously dense,which could obscure detection of small masses (approximately 51% - 75%glandular). No suspicious masses or microcalcifications. Post surgicalchanges within both breasts. IMPRESSION: There is no radiographic evidence for malignancy. Recommendannual mammograms. A lay language report of this examination will be provided to the patient. MAMMOGRAM ASSESSMENT: ACR 2 Benign Marva Sims MD MAMMO Final Result * (ABNORMAL) HISTORIAN DRAMATIC ARTS THIN PREP PAP DIAGNOSTIC IMAGED (05/28/2010 10:23 AM CDT) CYTOLOGY CYTOPATHOLOGY REPORT [facility] [address] [facility] Status: Final Status [id number] CLINICAL INFORMATION Last Date of LMP :summer 2008 Last Pap Date :03/27/2009 Last Pap Result :LSIL ABN [place]/Bx Past 5 YRS :HSIL Hormone Usage :None Menstrual Status :Hyst-cervix absent [place]/Bx done today :No Additional Information :None given HPV Request :HPV if ASCUS ANCILLARY TESTING :HPV testing ordered. See Separate Report. SPECIMEN SOURCE :Cervical/vagina l ThinPrep Vial, diagnostic SPECIMEN ADEQUACY :Satisfactory for evaluation INTERPRETATION/R ESULT Atypical squamous cells of undetermined significance (ASCUS) Cytology 1st Screener :[facility] Signed by : Nikole Ramey M.D. This [...] malignant lesions. COLLECTED: ACCESSIONED: 05/29/10 SIGNED: 06/03/10 [facility] PAP [place] CODE ASCUS [facility] Cervical/Vaginal (Cervical/Vagina l) 05/28/2010 10:23 AM CDT 05/28/2010 10:16 AM CDT us Britany BELTRÁN PATHOLOGY/CYTOLOGY Final R esult [facility] INTERNAL ZIP [address] [place] [address] * LIPID (04/18/2010 7:19 AM CDT) CHOLESTEROL,TOTAL 137 110 - 199 mg/dL [facility] TRIGLYCERIDES 60 <150 mg/dL [facility] HDL CHOLESTEROL 61 >40 mg/dL [facility] CHOL/HDL RATIO 2.25 <4.51 [facility] LDL CHOLESTEROL 64 <131 mg/dL [facility] PATIENT STATUS Fasting [facility] Blood specimen (specimen) BLOOD SPECIMEN / Unknown 04/18/2010 7:19 AM CDT 04/18/2010 7:14 AM CDT us Marva Sims MD CHEMISTRY Final Result Performing Organization Address City/[facility]/ZIP Co de Phone Number [facility] [address] [place], [place] [phone] from Last 3 Months or Most Recently Relevant to Health Maintenance Insurance [facility] [id number] [place] [id number] [facility] Advance Directives * Full Code (Latest [...] 5:07 PM 01/06/2009 5:24 PM Care Teams Mud Car Worker Relationship Specialty Start Date End Date Henrietta Pugh NP [address] [place] [address] PCP - General Nurse Practitioner 11/18/16 Eleni Bunn NP Family Practice 05/12/11 Jeovany Chester MD [facility] [address] [facility] 05/12/11 Irma Cherry MD [facility] [place] [address] [facility] 05/12/11 Juan Jose Garcia MD [address] [place] [address] [phone] [facility] 05/12/11 Brendon Romeo MD [address] [place] [phone] Internal Medicine 05/12/11 Marva Sims MD [address] [place] [address] [id number] Unknown Physician Specialty 05/12/11 Britany Bernal PA [address] [place] [address] [facility] 05/12/11 [place] [id number] [address] Ophthalmology Surgery 05/12/11 [place] [phone] [address] [facility] [address] [place] [address] [facility] 05/12/11
--- OUTSIDE RECORDS SUMMARY | 2024-10-21 06:08 | XMS_ITS | Referral Summary ---
Author Organization [facility] Address [address] [place] [address] Care Team Providers Care Implementation Engineer Name Role Phone Demetrice Hyde M.D. Primary Care Provider + Source Comments Patient records contain information from all sites at [facility]. For routine questions regarding patient records, call [phone] during business hours, M-F 8:00 AM - 5:00 PM Central Time. Record requests for emergency care only can be directed to [phone] at any time.[facility] Encounters Date Type Department Care Team Description 10/19/2024 2:00 PM COIN ROLLING MACHINE OPERATOR Office Visit Department of Family Medicine, [facility], in [place], [place] [address] [phone] Laquita Chew APRN, C.N.P., D.N.P. Preoperative Exam (Primary Dx); Seizure Disorder (HCC); Diabetes Mellitus Type 1 Without Complication (HCC) 10/17/2024 Clinical Communication Department of Family Medicine, [facility], in [place], [place] [address] [address] Demetrice Hyde M.D. Communication (AGUILAR needed ) 09/21/2024 Orders Only Division of Endocrinology in [place], [place] [address] [place] [address] Praveena Monge M.B., B.Ch., Ph.D. Diabetes Mellitus Type 1 Without Complication (HCC) (Primary Dx) 08/22/2024 Clinical Communication [facility] in [place], [place] [address] [place] [address] Krista Camacho M.D. 08/12/2024 Clinical Communication Division of Endocrinology in [place], [place] [address] [place] [address] Praveena Monge M.B., B.Ch., Ph.D. [employer] 08/11/2024 8:00 AM CDT Immunization Department of Family Medicine, [facility], in [place], [place] [address] [place] [address] Need Vaccine Immunization (Primary Dx) 07/29/2024 8:30 AM CDT Office Visit Department of Obstetrics and Gynecology in [place], [place] [address] [place] [phone] Marva Alexander CNM, D.N.P. Preventive Gynecological Exam (Primary Dx); Atrophy Vagina Due To Estrogen Deficiency; Cancer Breast Family History; Cervical Dysplasia Personal History; Neoplasia Vaginal Intraepithelial Personal History 07/28/2024 Refill Department of Internal Medicine in [place], [place] [address] [place] [phone] Demetrice Hyde M.D. Med Refill 07/26/2024 Refill Department of [facility] Medicine, [facility], in [place], [place] [address] [place] [phone] Demetrice Hyde M.D. Med Refill from Last [...] She follows with the breast clinic in [place]. Breast clinic recommendations include: 1. Clinical breast [...] laser therapy that can be done at [facility] in [place] but payment out of pocket is required and a series of treatments is needed. She is still considering this and will let us know if she would like to move forward. I would also want to check with [facility] Oncology regarding how that would affect surveillance [...] drink = 0.6 oz pur e alcohol) [facility] [employer] Answer Date Recorded In the past 12 months has e [employer], gas, oil, or water [employer] threatened to shut off services in your [...] often do you attend chur ch or hindu services? Never 11/21/2022 Do you belong to any clubs o r organizations such as roman catholic groups, unions, fraternal or athletic groups, or [...] Score 0 07/29/2024 [facility] of Occupat ional [facility] - Occupational Stress Questionnaire Answer Date Recorded [...] your living situation today? I have a emma place to live 01/19/2024 Education Answer Date Recorded What is the highest level of school you have completed or the highest degree you have received? 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 Not on file N ot on file Last Filed Vital Signs Vital Sign Reading Time Taken Comments Blood Pressure 106/70 10/19/2024 1:38 PM COIN ROLLING MACHINE OPERATOR Ave rage Pulse 59 10/19/2024 1:38 PM COIN ROLLING MACHINE OPERATOR Temperature 36.4 C (97.6 F) 10/19/2024 1:38 PM COIN ROLLING MACHINE OPERATOR Respiratory Rate 20 09/15/2023 9:22 AM COIN ROLLING MACHINE OPERATOR Oxygen Saturation 99% 09/15/2023 9:22 AM COIN ROLLING MACHINE OPERATOR Inhaled Oxygen Concentration - - Weight 72.9 kg (160 lb 11.5 oz) 10/19/2024 1:38 PM COIN ROLLING MACHINE OPERATOR Height 168.5 cm (5' 6.34) 10/19/2024 1:38 PM CS T Body Mass Index 25.68 10/19/2024 1:38 PM COIN ROLLING MACHINE OPERATOR Plan of Treatment Upcoming Encounters Date Type Department Care Team (Late st Contact Info) Description 10/25/2024 7:30 AM COIN ROLLING MACHINE OPERATOR Appointment Department of Laboratory Medicine in [place], [place] [address] [place] [address] Praveena Monge M.B., B.Ch., Ph.D. [address] [place] [address] 10/25/2024 8:10 AM COIN ROLLING MACHINE OPERATOR Appointment Department of Laboratory Medicine in [place], [place] [address] [address] Praveena Monge M.B., B.Ch., Ph.D. [address] [place] [phone] 11/04/2024 10:30 AM COIN ROLLING MACHINE OPERATOR Office Visit Division of Endocrinology in [place], [place] [address] [place] [phone] Praveena Monge M.B., B.Ch., Ph.D. [address] [place] [phone] 11/04/2024 1:00 PM COIN ROLLING MACHINE OPERATOR Clinical Support Department of Nutrition and Diabetes Education in [address] [address] Praveena Monge M.B., B.Ch., Ph.D. [address] [place] [phone] Luzma Portillo R.N. [address] [place] [phone] 11/15/2024 7:00 AM COIN ROLLING MACHINE OPERATOR Clinical Communication Virtual Review in [address] [phone] 11/18/2024 7:30 AM COIN ROLLING MACHINE OPERATOR Appointment Department of Radiology, [facility], in [place], [place] [address] [place] [phone] Krista Camacho M.D. [address] [place] [phone] 11/22/2024 8:45 AM COIN ROLLING MACHINE OPERATOR Comprehensive Visit Department of Ophthalmology in [place], [place] [address] [place] [phone] Boubacar Alvarado M.D. [address] [phone] 11/22/2024 3:30 PM COIN ROLLING MACHINE OPERATOR Office Visit [facility] in [place], [place] [address] [place] [address] Krista Camacho M.D. [address] [place] [address] Medical Devices Implanted Type Area Sales Service Representative Device Identifier Shelf Expiration Date Model / Serial / Lot Clp Formerly [facility] Endo 235 - [id number] - [id number] Implanted:Qty: 1 on 09/15/2023 by Santy Canela M.D. at [facility] Silver/[employer] e.g. pins/screw s/rods N/A: Descending Colon [employer] [id number] 03/26/2026 [id number] 10 / [id number] Clp Formerly [facility] Endo 235 - [id number] - [id number] Implanted:Qty: 1 on 09/15/2023 by Santy Canela M.D. at [facility] [employer] Hard[employer] e.g. pins/screw s/rods N/A: Descending Colon [employer] [id number] 03/26/2026 [id number] 10 / [id number] / [id number] Imaging Marker Imaging Marker Bilateral: Breast [...] Complication (HCC) COLONOSCOPY Routine 09/15/2023 7:41 AM COIN ROLLING MACHINE OPERATOR Screening Colon Cancer Average Risk COLOGUARD Routine 08/26/2022 5:45 AM COIN ROLLING MACHINE OPERATOR Screening Cancer Colon HIV-1 P24 AG, HIV-1/2 [...] was ordered in the context of a [facility] Cytology case; this result should be interpreted within the context of the [facility] cytology report. ----ADDITIONAL INFORMATION---- Testing was performed using the kanchan HPV assay ([employer] This report is intended for use in clinical monitoring and management of patients. It is not intended for use in medical-legal applications. This test has been modified from the waterproof coating machine tender's instructions. Its performance characteristics were determined by [facility] in a manner consistent with CLIA requirements. This test has not been cleared or approved by the U.S. Food and Drug Administration. 07/29/2024 9:15 AM CDT 08/01/2024 8:17 AM CDT Marva Alexander CNM, D.N.P. LAB MICROBIOLOGY - NERAL ORDERABLES Final Result [facility] [address] [place] [address] [facility] [address] [place] [address] [place] [address] * ThinPrep w/HPV Co-Test Screen (07/29/2024 9:15 [...] performed on the liquid-based cytology specimen at [facility] (CLIA #[id number]), [address] [place] [address]. This test has been modified from the waterproof coating machine tender's instructions. Its performance characteristics were determined by [facility] in a manner consistent with CLIA [...] ORDERA BLES Final Result Performing Organization Address City/State/[facility] Co de Phone Number [facility] [address] [place] [address], [facility] [address] [facility] [address] [place] [address] * BI Breast Screening Bilateral with Tomosynthesis [...] B.Ch., Ph.D. LAB BLOOD ADD-ON Final Result [facility] [address] [place] [address], [facility] [address] [place] [address] * (ABNORMAL) Basic Metabolic Panel (05/10/2024 7:42 [...] M.D. LAB BLOOD ADD-ON Final R esult [facility] [address] [place] [address], [facility] OWAT [facility] in [place] [address] [place] [address] * (ABNORMAL) Albumin, Random, Urine (02/22/2024 12:13 PM CDT) Albumin, Random, U <5.0 mg/L 2023 8:47 AM CDT DTL Comment: ----ADDITIONAL INFORMATION---- This test has been modified from the waterproof coating machine tender's instructions. Its performance characteristics were determined by [facility] in a manner consistent with CLIA [...] Ph.D. LAB URINE ORDERA BLES Final Result [facility] [address] [place] [address], [place] [facility] [address] [place] [address] * Lipid Panel (02/22/2024 11:58 AM CDT) [...] B.Ch., Ph.D. LAB BLOOD ADD-ON Final Result [facility] [address] [place] [address], [facility] [address] [place] [address] * Cologuard-Sent Out Lab (08/26/2022 5:45 AM COIN ROLLING MACHINE OPERATOR) Result Negative Negative 08/30/2022 9:22 AM COIN ROLLING MACHINE OPERATOR EXLI Comment: NEGATIVE TEST RESULT. A negative [...] Greco et al, N Engl J Med 2014;370(14):2687-4661) The normal value (reference range) for this assay is negative. COLOGUARD RE-SCREENING RECOMMENDATION: Periodic colorectal cancer screening is an important part of preventive healthcare for asymptomatic individuals at average risk for colorectal cancer. Following a negative Cologuard result, the [place] [employer] Society and U.S. Multi-Society Task Force screening guidelines recommend a Cologuard re-screening interval of 3 years. References: [place] [employer] Guideline for Colorectal Cancer Screening: https://www.cancer.org/cancer/chthe-ychvwe-ywaxqo/detection- diagnosis-staging/acs-recommendations.html.; Ponce PEACOCK, Umang STRONG, Taty BONE, Colorectal Cancer Screening: Recommendations for Physicians and Patients from the U.S. Multi-Society Task Force on Colorectal Cancer Screening , Am J Gastroenterology 2017; 112:3172-9902. TEST DESCRIPTION: Composite algorithmic analysis of stool [...] (Donald Solares al, N Engl J Med 2014;370(14):6243-0776.) Cologuard may produce a false negative or false positive result (no colorectal cancer or precancerous polyp present at colonoscopy follow up). A negative Cologuard test result does not guarantee the absence of CRC or advanced adenoma (pre-cancer). The current Cologuard screening interval is every 3 years. ([place] [employer] Society and U.S. Multi-Society Task Force). Cologuard performance data in a 10,000 patient pivotal study using colonoscopy as the reference method can be accessed at the following location: www.FinalCAD.com/results. Additional description of the Cologuard test process, warnings and precautions can be found at www.CroquetteLandrd.com. Stool (Stool) 08/26/2022 5:4 5 AM COIN ROLLING MACHINE OPERATOR 08/27/2022 12:31 PM COIN ROLLING MACHINE OPERATOR Angelique Olmos M.D. LAB BODY FLUIDS AND STOOL S ORDERABLES Final Result [facility] [address] [place] [address] [facility] [address] [facility] [place] [address] * HIV-1 p24 Ag, HIV-1/2 Ab Scrn, [...] MICROBIOLOGY - BLOOD ORDERA BLES Final Result [facility] [address] [place] [address], [facility] from Last 3 Months or Most Recently Relevant to Health Maintenance Insurance [id number] [place] [id number] [employer] Care Teams Implementation Engineer Relationship Specialty Start Date End Date Demetrice Hyde M.D. [address] [place] [phone] PCP - General 11/06/22
--- OUTSIDE RECORDS SUMMARY | 2024-10-21 06:08 | XMS_ITS | Encounter Summary ---
Author Organization [facility] Address [address] [place] [address] Care Team Providers Care Mud Jack Operator Name Role Phone Demetrice Hyde M.D. Primary Care Provider + Reason for Visit * Reason Comments Pre-op Exam [facility] o n 10/21 FAX: [phone] * Appointment Request (Routine) - Closed Specialty Diagnoses / Procedures Referred By Freddy delatorre Referred To Contact Family Medicine Referral ID Status Reason Start Date Expiration Date Visits Re quested Visits Authorized [id number] Closed 10/17/2024 10/17/2025 1 1 Encounter Details Date Type Department Care Team (Late st Contact Info) Description 10/19/2024 2:00 PM WELDER FITTER Office Visit Department of Family Medicine, [facility], in [place], [place] [address] [phone] Laquita Chew APRN, C.N.P., D.N.P. [address] [phone] Preoperative Exam (Primary Dx); Seizure Disorder (HCC); Diabetes Mellitus Type 1 Without Complication (HCC) Social History Tobacco Use Types Packs/Day Years Used Date Smoking Tobacco: Never Passive Smoke Exposure: Never Smokeless Tobacco: Never Alcohol Use Standard Drinks/Week Comments Never 0 (1 standard drink = 0.6 oz pur e alcohol) [facility] Utilities Answer Date Recorded In the past 12 months has th e electric, gas, oil, or water [employer] threatened to shut off services in your [...] often do you attend chur ch or denominational services? Never 11/21/2022 Do you belong to any clubs o r organizations such as lutheran groups, unions, fraternal or athletic groups, or [...] Answer Date Recorded PHQ-2 Score 0 07/29/2024 [facility] [place] of Occupat ional Health - Occupational Stress [...] your living situation today? [facility] 01/19/2024 Education Answer Date Recorded What is the highest level of school you have completed or the highest degree you have received? 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 file Not on file N ot on file documented as of this encounter Last Filed Vital Signs Vital Sign Reading Time Taken Comments Blood Pressure 106/70 10/19/2024 1:[address] rage Pulse 59 10/19/2024 1:38 PM WELDER FITTER Temperature 36.4 C (97.6 F) 10/19/2024 1:38 PM WELDER FITTER Respiratory Rate - - Oxygen Saturation - - Inhaled Oxygen Concentration - - Weight 72.9 kg (160 lb 11.5 oz) 10/19/2024 1:38 PM WELDER FITTER Height 168.5 cm (5' 6.34) 10/19/2024 1:38 PM CS T Body Mass Index 25.68 10/19/2024 1:38 PM WELDER FITTER documented in this encounter Patient Instructions * Patient Instructions* Laquita Chew APRN, C.N.P., D.N.P. - 10/19/2024 2:00 PM WELDER FITTER Hold everything except Keppra. Take other medications as normal. Hold ibuprofen, aspirin, advil, aleve 5-7 days before surgery. Tylenol is ok. Nothing to eat or drink after midnight the day of surgery. Make sure they check blood sugars after surgery. If go low take glucose tablets. ER FITTER documented in this encounter H&P Notes * Laquita Chew APRN, C.N.P., D.N.P. - 10/19/2024 2:00 PM CST ADULT PREOPERATIVE EVALUATION SUBJECTIVE PROPOSED PROCEDURE: ORIF Right Wrist DATE OF SURGERY/PROCEDURE: 10/21/2024 SURGEON: Dr. Huey Howard [facility]ICAL [facility]ILITY: [address] [address] Phone: PRIMARY PHYSICIAN: Demetrice Hyde M.D. TYPE OF ANESTHESIA ANTICIPATED: Choice Patient has a Health Care Directive or Living Will: NONE HISTORY OF PRESENT ILLNESS Melissa Guerra Jose, 1970 presents for pre-operative evaluation and assessment as requestedby Dr. Howard, prior to undergoing surgery/procedure for treatment of wrist fracture . PREOPERATIVE QUESTIONS: NO - Are you troubled by shortness of breath when: walking on the level/ up a slight hill/ at night? NO - Does your chest ever sound wheezy or whistling? NO - Have you had or currently have a cold, bronchitis or other respiratory infection within the last 2 weeks? NO - Do you usually have a cough? NO - Do you sometimes get pains in the calves of your legs when you walk? NO - Have you ever had problems with anemia or been told to take iron pills? NO - Have you ever had a blood transfusion? NO - Do you have sleep apnea, excessive snoring or daytime drowsiness? NO - Do you have any prosthetic heart valves? NO - Do you have prosthetic joints? NO - Is there any chance that you may be ? Patient Active Problem List Diagnosis Diabetes Mellitus Type 1 Without Complication (HCC) Seizure Disorder (HCC) Gastroesophageal Reflux Disease Without Esophagitis Menopause Neoplasia Vaginal Intraepithelial Personal History Cervical Dysplasia Personal History Dyspareunia Female Organic Mass Inguinal Cancer Breast Family History Capsulitis Adhesive Shoulder Left Atrophy Vagina Due To Estrogen Deficiency CURRENT MEDICATIONS Current Outpatient Medications Medication Sig Dispense Refill atorvastatin (LIPITOR) 20 mg tablet take one tablet by mouth every day 90 tablet 3 blood sugar diagnostic strips 15 test daily. 1500 test 3 glucose 4 gram chewable tablet Chew 4 g as needed for low blood sugar. Guardian 4 Transmitter device insulin aspart U-100 (NovoLOG U-100 Insulin aspart) 100 unit/mL vial USE UP TO 60 UNITS PER DAY VIAPUMP 54 mL 3 insulin syringe-needle U-100 1 mL 31 gauge x 5/16 syringe Inject 1 Injection as directed daily. Foremergency use in case of insulin pump malfunction. Type 1 DM 10 each 3 levETIRAcetam (KEPPRA) 1,000 mg tablet Take 1 tablet (1,000 mg total) by mouth every evening. 90 tablet 3 levETIRAcetam (KEPPRA) 750 mg tablet Take 1 tablet (750 mg total) by mouth every morning. 90 tablet3 lisinopriL 10 mg tablet Take 1 tablet (10 mg total) by mouth daily. 90 tablet 3 MULTIVITAMIN ORAL Take 1 tablet by mouth daily. raloxifene (EVISTA) 60 mg tablet TAKE ONE TABLET BY MOUTH EVERY DAY . 90 tablet 3 Lactobacillus acidophilus capsule Take 1 capsule by mouth daily. No current facility-administered medications for this visit. ALLERGIES/CONTRAINDICATIONS Allergies Allergen Reactions Omeprazole Nausea Only and GI intolerance Tomasaner listed constipation as additional reaction. Latex Allergy: NO FAMILY HISTORY Family History Problem Relation Name Age of Onset Hypertension Mother Edelmira Avilez Uterine cancer Mother Edelmira Avilez 74 Diabetes Mother Edelmira Avilez Type 2 Diabetes Cataracts Mother Edelmira Avilez Thyroid disease Mother Edelmira Avilez Clotting disorder Mother Edelmira Avilez Prostate cancer Father Galo Avilez 72 Coronary artery disease Father Galo Avilez Heart attack Hypertension Sister Dr. Caryn Avilez Hypothyroidism Sister Dr. Caryn Avilez Breast cancer Sister Dr. Caryn Avilez 55 Finished treatment and cancer free Thyroid disease Sister Dr. Caryn Avilez Breast cancer Sister Zuleyma Meekeugene 53 Finished treatment and cancer free Clotting disorder Sister Zuleyma Xavier pulmonary blood clot Diabetes Sister Zuleyma Xavier Type 2 Hypertension Maternal Grandmother Hypertension Maternal Grandfather Cataracts Maternal Grandfather Hypertension Paternal Grandmother Cataracts Paternal Grandmother Hypertension Paternal Grandfather Nando Avilez Did receive treatment Diabetes Paternal Grandfather Nando Avilez Cataracts Paternal Grandfather Nando Avilez Coronary artery disease Paternal Grandfather Nando Avilez Congestive heart failure Breast cancer Maternal Cousin 61 Breast cancer Other 60 - 70 Cancer Other 71 SOCIAL HISTORY Social History Socioeconomic History Marital status: Highest education level: Bachelor's degree (e.g., BA, AB, BS) 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 No other history of STDs. 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 Lives with her in their black [employer]. Social Drivers of Health Food Insecurity: No Food Insecurity (01/19/2024) Hunger Vital Sign Worried About Running Out of Food in the Last Year: Never true Ran Out of Food in the Last Year: Never true Transportation Needs: No Transportation Needs (01/19/2024) PRAPARE - Transportation Lack of Transportation (Medical): No Lack of Transportation (Non-Medical): No Physical Activity: Sufficiently Active (01/19/2024) Exercise Vital Sign Days of Exercise per Week: 7 days Minutes of Exercise per Session: 30 min Intimate Partner Violence: Not At Risk (11/21/2022) Humiliation, Afraid, Rape, and Kick questionnaire Fear of Current or Ex-Partner: No Emotionally Abused: No Physically Abused: No Sexually Abused: No Housing Stability: Low Risk (01/19/2024) Housing Stability Housing: Living Situation: I have a steady place to live REVIEW OF SYSTEMS General: No fever in past month, no chills, no sweats, no fatigue. HEENT: No difficulty swallowing, no mouth sores. Pulmonary: No shortness of breath, no cough, no wheezing. Cardiac: No chest pain, no chest pressure, no rapid beating, no irregular beating. Gastrointestinal: No nausea, no vomiting, no stomach trouble, no constipation, no diarrhea, no blood in bowel movements. Genitourinary: No burning/pain with urination, no hematuria Skin: No skin rashes, or no skin sores. Neurologic: No significant headaches, History of seizures, no dizziness RISK ASSESSMENT: OBSTRUCTING SLEEP APNEA SCREENING: Stop Bang Total Score: 2 CARDIOVASCULAR RISK: - Patient is able to perform ADL's without assistance, able to walk up a flight of stairs, able to do heavy housework, and able to participate in strenous activities without chest pain. - The patient does not have chest pain at rest and with exertion . - Patient does not have a history of congestive heart failure. - The patient does not have a history of stroke and does not have a history of valvular disease. CARDIOVASCULAR RISK ANALYSIS: none REVISED CARDIAC RISK INDEX: 0 point, class 1 and risk of 0.4% of major cardiac event PULMONARY RISK: - In terms of risk factors for pulmonary complication, the patient has no risk factors. . PERIOPERATIVE COMPLICATIONS: - The patient does not have a history of bleeding or clotting problems in the past. - The patient has not had complications from surgeries . - The patient does not have a family history of any anesthesia or surgical complications. OBJECTIVE VITAL SIGNS BP 106/70 (BP Location: Left arm, Patient Position: Sitting, Cuff Size: Regular) Comment: Average Pulse (!) 59 Temp 36.4 ??C (Temporal) Ht 168.5 cm Wt 72.9 kg LMP (LMP Unknown) BMI 25.68 kg/m?? PHYSICAL EXAMINATION General: Patient is in no distress. Capable of full communication without difficulty. Patient is polite and cooperative. Appropriately dressed and normal hygiene., HEENT: Normocephalic. Extraocular movements intact. Pupils equal, round, reactive to light and accommodation. Canals patent. Tympanic membranes normal. Oropharynx clear without erythema or exudate. Dentition intact. Neck: No nodes. No thyromegaly. Heart: Regular rate and rhythm. No murmurs, gallops or rubs noted. Lungs: Clear to auscultation bilaterally. No expiratory wheeze. No accessory muscles of respirationnoted. Abdomen: Nontender to palpation. No hepatosplenomegaly. No mass. Normal bowel sounds in all 4 quadrants. Extremities: No neurovascular compromise. No cyanosis, clubbing or edema. No abnormal limb length. Neurologic: Grossly intact with no evidence of impairment. Skin: No lesion, rash or bruising. DIAGNOSTICS: No labs or EKG required, prior labs from 04/2024 Last A1c 5.9 05/2024 ASSESSMENT / PLAN 1. Seizure Disorder (HCC) Stable. On Keppra 1750 mg daily. Last seizure was 3 years ago, prior to that it was 12 years. 2. Diabetes Mellitus Type 1 Without Complication (HCC) Last hemoglobin A1c in May was 5.9. She does use an insulin pump with NovoLog insulin. She is onthe guardian for device and does not use any basal insulin. 3. Preoperative Exam (Primary) Patient seen for preop exam prior to right wrist ORIF. The proposed surgical procedure is considered INTERMEDIATE(abdominal, most orthopedics and intrathoracic surgery) risk. Patient is at MODERATE(HTN, DM, CAD, AF, CHF, alcohol use, immune suppressants, HX of DVT/PE, delirium or bleeding disorder) risk for surgery/procedure and perioperative/procedure complications. PREOPERATIVE PLAN: Patient is felt to be medically stable and medically optimized for the above procedure. No contraindication to anesthesia. Patient's known cardiopulmonary risk factors include GERD, diabetes type 1, seizure. We reviewed medications to avoid taking prior to the procedure. The patient knows to be fasting after midnight the day of surgery. Further preoperative and postoperative recommendations will be given prior to surgery by surgeon. Patient will followup with me as needed. Sleep Apnea: No known history of sleep apnea. Steroid use within the past 12 months: None. Diabetes: DM type 1 on insulin pump Bleeding Risk Factors: None. Anesthesia Reactions: None. Need for Prophylactic Antibiotics: None. Beta Antonia: None. Patient should take their regular medications the morning of surgery unless otherwise instructed below. Monitor glucose carefully for 24 hours prior and 72 hours after surgery., Hold aspirin 7 days priorto surgery., Hold ibuprofen for 5 days prior to surgery., and Hold JANET Inhibitors and ARB's the dayof surgery. Laquita Chew APRN, C.N.P., D.N.P. Please contact our office if there are any further questions or information required about this patient. ER FITTER documented in this encounter Plan of Treatment Upcoming Encounters Date Type Department Care Team (Late st Contact Info) Description 10/25/2024 7:30 AM WELDER FITTER Appointment Department of Laboratory Medicine in [address] [phone] Praveena Monge M.B., B.Ch., Ph.D. [address] [place] [phone] 10/25/2024 8:10 AM WELDER FITTER Appointment Department of Laboratory Medicine in [place], [place] [address] [place] [phone] Praveena Monge M.B., B.Ch., Ph.D. [address] [place] [phone] 11/04/2024 10:30 AM WELDER FITTER Office Visit Division of Endocrinology in [place], [place] [address] [place] [phone] Praveena Monge M.B., B.Ch., Ph.D. [address] [place] [address] [phone] 11/04/2024 1:00 PM WELDER FITTER Clinical Support Department of Nutrition and Diabetes Education in [place], [place] [address] [place] [phone] Praveena Monge M.B., B.Ch., Ph.D. [address] [place] [phone] Luzma Portillo R.N. [address] [place] [phone] 11/15/2024 7:00 AM WELDER FITTER Clinical Communication Virtual Review in [place], [place] 200 [place] [phone] 11/18/2024 7:30 AM WELDER FITTER Appointment Department of Radiology, [facility], in [address] [phone] Krista Camacho M.D. [address] [place] [phone] 11/22/2024 8:45 AM WELDER FITTER Comprehensive Visit Department of Ophthalmology in [place], [place] [address] [phone] Boubacar Alvarado M.D. [address] [phone] 11/22/2024 3:30 PM WELDER FITTER Office Visit [facility] Clinic in [address] [phone] Krista Camacho M.D. [address] [place] [phone] documented as of this encounter Visit Diagnoses Diagnosis Preoperative Exam- Primary Seizure Disorder (HCC) Diabetes Mellitus Type 1 Without Complication (HCC) documented in this encounter Additional Health Concerns Assessment Noted Time PHQ-9 Depression Total Score: 0 07/29/20 24 8:08 AM CDT documented as of this encounter Care Teams Mud Jack Operator Relationship Specialty Start Date End Date Demetrice Hyde M.D. [address] [phone] PCP - General 11/06/22 documented as of this encounter
--- OUTSIDE RECORDS SUMMARY | 2024-10-21 06:08 | XMS_ITS | Encounter Summary ---
Author Organization [facility] Address [address] [place] [address] Care Team Providers Care Construction Producer Name Role Phone Demetrice Hyde M.D. Primary Care Provider + Reason for Referral * MRI/CAT/PET Scan (Routine) - Authorized Specialty Diagnoses / Procedures Referred By Contac t Referred To Contact Radiology Diagnoses Cancer Breast Family History Mammographic Extreme Density, Bilateral Breasts Procedures MR Breast Bilateral without and with IV Contrast TX MRI BREAST WOW CNTRST W/CAD BILAT Krista Camacho M.D. [address] [place] [phone] Phone: tel: fax: [facility] Referral ID Status Reason Start Date Expiration Date V isits Requested Visits Authorized [id number] Authorized 08/24/2024 08/24/2025 1 1 KTOP PAVER OPERATOR Encounter Details Date Type Department Care Team (Late st Contact Info) Description 08/22/2024 Clinical Communication [facility] in [place], [place] [address] [place] [phone] Krista Camacho M.D. [address] [place] [phone] Social History Tobacco Use Types Packs/Day Years Used Date Smoking Tobacco: Never Passive Smoke Exposure: Never Smokeless Tobacco: Never Alcohol Use Standard Drinks/Week Comments Never 0 (1 standard drink = 0.6 oz pur e alcohol) [facility] Utilities Answer Date Recorded In the [...] often do you attend chur ch or mu-ism services? 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 [address] [place] [phone] 10/25/2024 8:10 AM BLACKTOP PAVER OPERATOR Appointment Department of Laboratory Medicine in [place], [place] [address] [phone] Praveena Monge M.B., B.Ch., Ph.D. [address] [place] [phone] 11/04/2024 10:30 AM BLACKTOP PAVER OPERATOR Office Visit Division of Endocrinology in [address] [phone] Praveena Monge M.B., B.Ch., Ph.D. [address] [place] [phone] 11/04/2024 1:00 PM BLACKTOP PAVER OPERATOR Clinical Support Department of Nutrition and Diabetes Education in [address] [phone] Praveena Monge M.B., B.Ch., Ph.D. [address] [place] [phone] Luzma Portillo R.N. [address] [place] [phone] 11/15/2024 7:00 AM BLACKTOP PAVER OPERATOR Clinical Communication Virtual Review in [place], [place] [address] [place] [phone] 11/18/2024 7:30 AM BLACKTOP PAVER OPERATOR Appointment Department of Radiology, [facility], in [place], [place] [address] [place] [phone] Krista Camacho M.D. [address] [place] [phone] 11/22/2024 8:45 AM BLACKTOP PAVER OPERATOR Comprehensive Visit Department of Ophthalmology in [place], [place] [address] [place] [phone] Boubacar Alvarado M.D. [address] [phone] 11/22/2024 3:30 PM BLACKTOP PAVER OPERATOR Office Visit [facility] Clinic in [place], [place] [address] [place] [phone] Krista Camacho M.D. [address] [place] [phone] Scheduled Orders Name Type Priority Associated Diagnoses [...] Time PHQ-9 Depression Total Score: 0 07/29/20 8:08 AM CDT documented as of this encounter Care Teams Construction Producer Relationship Specialty Start Date End Date Demetrice Hyde M.D. [address] [phone] PCP - General 11/06/22 documented as of this encounter
--- OUTSIDE RECORDS SUMMARY | 2024-10-21 06:08 | XMS_ITS | Encounter Summary ---
Author Organization [facility] Address [address] [place] [address] Care Team Providers Care Emergency Manager Name Role Phone Demetrice Hyde M.D. Primary Care Provider + Encounter Details Date Type Department Care Team (Late st Contact Info) Description 08/12/2017 Historical Ophthalmology [facility] Boubacar Alvarado M.D. [address] [phone] Social History Tobacco Use Types Packs/Day Years Used Date Smoking Tobacco: Never Comments No Sex and Gender Information Value Date Recorded Sex Assigned at Female 12/01/2017 8:02 AM JAVA TECHNICAL ARCHITECT Legal Sex Female 12:21 PM JAVA TECHNICAL ARCHITECT Gender Identity Female 12/01/2017 8:02 AM JAVA TECHNICAL ARCHITECT Sexual Orientation Straight 12/01/2017 8: 02 AM JAVA TECHNICAL ARCHITECT documented as of this encounter Progress Notes [...] both eyes. CDM Reports - EYEGEN Id: [id number] Status: Fnl documented in this encounter Plan of Treatment Upcoming Encounters Date Type Department Care Team (Late st Contact Info) Description 10/25/2024 7:30 AM JAVA TECHNICAL ARCHITECT Appointment Department of Laboratory Medicine in [place], [place] [address] [place] [phone] Praveena Monge M.B., B.Ch., Ph.D. [address] [place] [phone] 10/25/2024 8:10 AM JAVA TECHNICAL ARCHITECT Appointment Department of Laboratory Medicine in [place], [place] [address] [place] [phone] Praveena Monge M.B., B.Ch., Ph.D. [address] [place] [phone] 11/04/2024 10:30 AM JAVA TECHNICAL ARCHITECT Office Visit Division of Endocrinology in [place], [place] [address] [place] [phone] Praveena Monge M.B., B.Ch., Ph.D. [address] [place] [phone] 11/04/2024 1:00 PM JAVA TECHNICAL ARCHITECT Clinical Support Department of Nutrition and Diabetes Education in [place], [place] [address] [place] [phone] Praveena Monge M.B., B.Ch., Ph.D. [address] [place] [phone] Luzma Portillo R.N. [address] [place] [phone] 11/15/2024 7:00 AM JAVA TECHNICAL ARCHITECT Clinical Communication Virtual Review in [place], [place] 200 [place] [phone] 11/18/2024 7:30 AM JAVA TECHNICAL ARCHITECT Appointment Department of Radiology, [facility], in [place], [place] [address] [place] [phone] Krista Camacho M.D. [address] [place] [phone] 11/22/2024 8:45 AM JAVA TECHNICAL ARCHITECT Comprehensive Visit Department of Ophthalmology in [place], [place] [address] [place] [phone] Boubacar Alvarado M.D. [address] [place] [phone] 11/22/2024 3:30 PM JAVA TECHNICAL ARCHITECT Office Visit Breast Diagnostic Clinic in [place], [place] [address] [place] [phone] Krista Camacho M.D. [address] [place] [phone] documented as of this encounter Visit Diagnoses Not on filedocumented in this encounter Additional Health Concerns Infection Onset Date Last Indicated Resolved Time COVID19 Pending 12/20/2020 12/21/2020 12/21/2020 8 :37 PM JAVA TECHNICAL ARCHITECT COVID19 Pending 06/10/2021 06/11/2021 06/11/2021 1 2:17 PM CDT COVID19 Pending 06/11/2021 06/11/2021 06/12/2021 1 :45 PM CDT COVID19 Pending 09/28/2021 09/29/2021 09/30/2021 1 0:57 AM JAVA TECHNICAL ARCHITECT COVID19 Pending 12/13/2021 12/13/2021 12/14/2021 1 2:05 AM JAVA TECHNICAL ARCHITECT COVID19 09/11/2022 09/11/2022 10/01/2022 5:05 AM JAVA TECHNICAL ARCHITECT Assessment Noted Time PHQ-9 Depression Total Score: 0 03/12/20 17 8:45 AM CDT documented as of this encounter Care Teams Emergency Manager Relationship Specialty Start Date End Date Demetrice Hyde M.D. [address] [phone] PCP - General 11/06/22 documented as of this encounter
--- OUTSIDE RECORDS SUMMARY | 2024-10-21 06:08 | XMS_ITS | Encounter Summary ---
Author Organization [facility] Address [address] [place] [phone] Care Team Providers Care Certified Personal Trainer Name Role Phone Demetrice Hyde M.D. Primary Care Provider + Reason for Referral * Specialty Diagnoses / Procedures Referred By Contac t Referred To Contact Diagnoses Diabetes Mellitus Type 1 Without Complication (HCC) Praveena Monge M.B., B.Ch., Ph.D. [address] [place] [phone] Phone: tel: fax: [facility] Referral ID Status Reason Start Date Expiration Date Visits Re quested Visits Authorized OSE CELLAR CHARGE HAND Encounter Details Date Type Department Care Team (Late st Contact Info) Description 09/21/2024 Orders Only Division of Endocrinology in [place], [place] [address] [place] [phone] Praveena Monge M.B., B.Ch., Ph.D. [address] [place] [phone] Diabetes Mellitus Type 1 Without Complication (HCC) (Primary Dx) Social History Tobacco Use Types Packs/Day Years Used Date Smoking Tobacco: Never Passive Smoke Exposure: Never Smokeless Tobacco: Never Alcohol Use Standard Drinks/Week Comments Never 0 (1 standard drink = 0.6 oz pur e alcohol) [facility] Utilities Answer Date Recorded In the [...] often do you attend chur ch or latter day services? Never 11/21/2022 Do you belong to any clubs o r organizations such as judaism groups, unions, fraternal or athletic groups, or [...] your living situation today? I have a [facility] place to live 01/19/2024 Education Answer Date Recorded What is the highest level of school you have completed or the highest degree you have received? 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 [address] [place] [phone] 10/25/2024 8:10 AM VISCOSE CELLAR CHARGE HAND Appointment Department of Laboratory Medicine in [place], [place] [address] [place] [phone] Praveena Monge M.B., B.Ch., Ph.D. [address] [place] [phone] 11/04/2024 10:30 AM VISCOSE CELLAR CHARGE HAND Office Visit Division of Endocrinology in [address] [phone] Praveena Monge M.B., B.Ch., Ph.D. [address] [place] [phone] 11/04/2024 1:00 PM VISCOSE CELLAR CHARGE HAND Clinical Support Department of Nutrition and Diabetes Education in [address] [phone] Praveena Monge M.B., B.Ch., Ph.D. [address] [place] [phone] Luzma Portillo R.N. [address] [place] [phone] 11/15/2024 7:00 AM VISCOSE CELLAR CHARGE HAND Clinical Communication Virtual Review in [place], [place] 200 [place] [phone] 11/18/2024 7:30 AM VISCOSE CELLAR CHARGE HAND Appointment Department of Radiology, [facility], in [place], [place] [address] [place] [phone] Krista Camacho M.D. [address] [place] [phone] 11/22/2024 8:45 AM VISCOSE CELLAR CHARGE HAND Comprehensive Visit Department of Ophthalmology in [place], [place] [address] [place] [phone] Boubacar Alvarado M.D. [address] [phone] 11/22/2024 3:30 PM VISCOSE CELLAR CHARGE HAND Office Visit Breast Diagnostic Clinic in [place], [place] [address] [place] [phone] Krista Camacho M.D. [address] [place] [phone] Scheduled Referrals Name Type Priority Associated Diagnoses Orde r Schedule Nutrition - extension educator visit (clinic) Outpatient Referral Routine Diabetes Mellitus Type 1 Without Complication (HCC) Expected: 09/21/2024, Expires: 09/21/2025 documented as of this encounter Visit Diagnoses Diagnosis Diabetes Mellitus Type 1 Without Complication (HCC)- Primary documented in this encounter Additional Health Concerns Assessment Noted Time PHQ-9 Depression Total Score: 0 07/29/20 24 8:08 AM CDT documented as of this encounter Care Teams Certified Personal Trainer Relationship Specialty Start Date End Date Demetrice Hyde M.D. [address] [phone] PCP - General 11/06/22 documented as of this encounter
--- OUTSIDE RECORDS SUMMARY | 2024-10-21 06:08 | XMS_ITS ---
Author Organization [facility] Address [address] [place] [address] Care Team Providers Care Chainstitch Zipper Setter Name Role Phone Unavailable Unavailable Unavailable Surgery Details Not on file Complications Check Surgery Details section. Procedure Estimated Blood Loss Check Surgery Details section. Procedure Findings Check Surgery Details section. Procedure Specimens Taken Check Surgery Details section.
--- OUTSIDE RECORDS SUMMARY | 2024-10-21 06:08 | XMS_ITS | Encounter Summary ---
Author Organization [facility] Address [address] [place] [address] Care Team Providers Care Marketing Account Executive Name Role Phone Demetrice Hyde M.D. Primary Care Provider + Reason for Visit * Reason Onset Date Comments Communication 10/17/2024 AGUILAR needed Encounter Details Date Type Department Care Team (Latest Contact Info) Description 10/17/2024 Clinical Communication Department of Family Medicine, [facility], in [place], [place] [address] [phone] Demetrice Hyde M.D. [address] [phone] Communication (AGUILAR needed ) Social History Tobacco Use Types Packs/Day Years Used Date Smoking Tobacco: Never Passive Smoke Exposure: Never Smokeless Tobacco: Never Alcohol Use Standard Drinks/Week Comments Never 0 (1 standard drink = 0.6 oz pur e alcohol) [facility] Utilities Answer Date Recorded In the past 12 months has e electric, gas, oil, or water company [...] often do you attend chur ch or baptist services? Never 11/21/2022 Do you belong to any clubs o r organizations such as holiness groups, unions, fraternal or athletic groups, or [...] Answer Date Recorded PHQ-2 Score 0 07/29/2024 [facility] - Occupational Stress [...] your living situation today? I have a [facility] place to live 01/19/2024 Education Answer Date Recorded What is the highest level of school you have completed or the highest degree you have received? 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 - 10/17/2024 12:32 PM GAME BIRD FARMER Melissa called back and I gave her the above information and I told her that to ensure that we are able to get all of the information to [facility] prior to her surgery, to have them write down the fax number and any testing they require prior to surgery and bring it with her to the appointment with Laquita on 10/19/2024. She was appreciative of the information and assistance. BIRD FARMER * Telephone Encounter - Emily Khan L.P.N. - 10/17/2024 12:20 PM GAME BIRD FARMER I called Melissa to offer her an appointment with Laquita Chew APRN on Saturday, October 19, 2024 with a 1:40 PM check-in for a 2:00 appointment for the Pre-Op Exam for repair of her wrist fracture that is scheduled for 10/21/2024 at [facility]. BIRD FARMER documented in this encounter Plan of Treatment Upcoming Encounters Date Type Department Care Team (Late st [facility] Info) Description 10/25/2024 7:30 AM GAME BIRD FARMER Appointment Department of Laboratory Medicine in [place], [place] [address] [phone] Praveena Mnoge M.B., B.Ch., Ph.D. [address] [place] [phone] 10/25/2024 8:10 AM GAME BIRD FARMER Appointment Department of Laboratory Medicine in [place], [place] [address] [phone] Praveena Monge M.B., B.Ch., Ph.D. [address] [place] [phone] 11/04/2024 10:30 AM GAME BIRD FARMER Office Visit Division of Endocrinology in [place], [place] [address] [place] [phone] Praveena Monge M.B., B.Ch., Ph.D. [address] [place] [phone] 11/04/2024 1:00 PM GAME BIRD FARMER Clinical Support Department of Nutrition and Diabetes Education in [address] [phone] Praveena Monge M.B., B.Ch., Ph.D. [address] [place] [phone] Luzma Portillo R.N. [address] [place] [phone] 11/15/2024 7:00 AM GAME BIRD FARMER Clinical Communication Virtual Review in [place], [place] 200 [place] [phone] 11/18/2024 7:30 AM GAME BIRD FARMER Appointment Department of Radiology, [facility], in [address] [phone] Krista Camacho M.D. [address] [place] [phone] 11/22/2024 8:45 AM GAME BIRD FARMER Comprehensive Visit Department of Ophthalmology in [place], [place] [address] [place] [phone] Boubacar Alvarado M.D. [address] [place] [phone] 11/22/2024 3:30 PM GAME BIRD FARMER Office Visit Breast Diagnostic Clinic in [address] [phone] Krista Camacho M.D. [address] [place] [phone] documented as of this encounter Visit Diagnoses Not on filedocumented in this encounter Additional Health Concerns Assessment Noted Time PHQ-9 Depression Total Score: 0 07/29/20 24 8:08 AM CDT documented as of this encounter Care Teams Marketing Account Executive Relationship Specialty Start Date End Date Demetrice Hyde M.D. [address] [place] [phone] PCP - General 11/06/22 documented as of this encounter
[2024-10-21] MEDS: 0.9 % SODIUM CHLORIDE 500 ML 500 ML 100 ML IV ×2 (06:45→08:26)
[2024-10-21] MEDS: SODIUM CHLORIDE 0.9 % (FLUSH) 10 ML SYRINGE IVF (06:45)
--- NOTE | 2024-10-21 07:15 | CRLHL7_ITS ---
For Patients: As a result of the Cures Act, medical imaging exams and procedure reports are released immediately into your electronic medical record. You may view this report before your referring provider. If you have questions, please contact your health care provider. Indication: Right Distal Radius ORIF Technique: Three fluoroscopic images of the right wrist. Fluoroscopic time 38.7 seconds. IMPRESSION: Fluoroscopic guidance for open reduction internal fixation of distal radial fracture. Dictated by Henrique Wei MD @ 10/21/2024 10:51:29 AM (Electronically Signed)
[2024-10-21] MEDS: fentaNYL 100 MCG/2 ML inj IVP (07:17)
[2024-10-21] MEDS: MIDAZOLAM HCL 1 MG/ML inj IVP (07:17)
--- NOTE | 2024-10-21 07:17 | W.PM.H&PU ---
History & Physical Update History & Physical Update H&P Reviewed and patient assessed: No changes noted
--- NOTE | 2024-10-21 07:17 | PM.ORPRC ---
Procedure Note Date of procedure: 10/21/24 Procedure: PREOPERATIVE DIAGNOSES: 1. Right distal radius fracture (intraarticular with comminution and dorsal angulation/displacement) POSTOPERATIVE DIAGNOSES: 1. Right distal radius fracture (intraarticular with comminution and dorsal angulation/displacement) NAME OF OPERATION: 1. Right distal radius open reduction with internal fixation - intraarticular fracture (3+ parts) SURGEON: Stevan Howard MD WORLD HISTORY TEACHER: Albertina Mcpherson P.A.-C. - An assistant track and field coach was critical for this case to aide in patient positioning, limb manipulation, tissue retraction, closure, and splinting. ANESTHESIA: Axillary nerve block with monitored anesthesia care. IMPLANTS: [employer] DVR Crosslock distal radius locking plate with 2.7 mm fully-threaded locking pegs, 2.2 mm smooth locking pegs, and 2.7 mm nonlocking screws. TOURNIQUET: 88 minutes at 250 mmHg. INDICATIONS: The patient is a pleasant, 54-year-old female who sustained a right wrist injury after a fall. She had difficulty with use of the extremity and deformity. Workup included xrays, which revealed an unstable, displaced fracture. Given these findings, surgery was recommended to stabilize the fracture and allow for healing in a more anatomic position. Prior to surgery the risks and benefits of the procedure were discussed with patient, all questions were answered, and informed consent was obtained. FINDINGS: Closed, comminuted, intra-articular, displaced distal radius fracture (3+ parts). Mildly displaced ulnar styloid fracture. PROCEDURE: Following a thorough discussion of risks, benefits, and alternatives, consent was obtained and the operative extremity was marked. An axillary nerve block was performed by anesthesia staff. The patient was then brought to the operating room and placed supine on the operating table. Monitored anesthesia care was administered, and patient was provided with IV Ancef preoperatively for prophylaxis. The operative extremity was prepped and draped in usual sterile fashion . A surgical time-out was performed confirming patient identity surgical site and surgical procedure. The operative extremity was exsanguinated and the tourniquet inflated to 250 mmHg. A longitudinal incision was made overlying the FCR tendon. The superficial sheath of the FCR tendon was then incised in line with these skin incision. The FCR tendon was retracted ulnarly, and deep fascial sheath was incised in line with the skin incision. The FPL was retracted ulnarly. The pronator quadratus was identified and was sharply released along its radial and distal borders. Plantar quadratus was then subperiosteally elevated and retracted radially. The fracture was encountered and cleared of interposed periosteum / fracture hematoma. A reduction was performed but fracture remained unstable. Therefore a pin was placed percutaneously through the radial styloid in a retrograde fashion across the fracture site to hold the reduction. Fluoroscopic imaging confirmed satisfactory reduction. The appropriate sized distal locking plate was then selected and provisionally fixed the wires. Fluoroscopic imaging confirmed proper plate positioning. Distal screw holes were then screwed and filled with combination of smooth and fully threaded locking pegs with care taken to keep screws extra-articular in the subchondral bone. The plate was then reduced to the shaft in the oblong hole shaft screw hole was filled with a nonlocking screw. Radial styloid K-wire was removed. Finally, the remaining proximal shaft screws were drilled and and filled with combination of locking and nonlocking screws. Fluoroscopic imaging confirmed the improved alignment of the fracture and satisfactory placement of the plate and screws. At this stage, the wound was thoroughly irrigated with normal saline. The pronator quadratus was repaired over the plate using 3-0 Vicryl [id number] interrupted sutures. The tourniquet was released. Hemostasis was achieved with electrocautery. Skin closure was then performed with 3-0 Vicryl subcutaneous sutures and 2-0 Stratafix subcuticular sutures followed by Dermabond. Sterile dressings were applied along with a volar/dorsal splint. The patient was then awoken from anesthesia and transferred to PACU in stable condition. PLAN: 1. Elevate operative extremity. 2. Ice, acetaminophen or ibuprofen PRN. 3. Oxycodone as needed for more severe pain 4. Follow up in Orthopedic Clinic in 10-14 days for wound check and splint removal.
--- NOTE | 2024-10-21 07:25 | SUR.PREOP ---
TIME?OUT:?0717 PT/RN/MDA?VERIFICATION?OF?SURGICAL?SITE,?PROCEDURE,?AND?CONSENT OBTAINED?PRIOR?TO?INVASIVE?PROCEDURE.
[2024-10-21] MEDS: CEFAZOLIN 2 GM INJ IVP (07:31)
--- NOTE | 2024-10-21 10:00 | P.ANES_ITS ---
Anesthesia Charges Start Date/Time Anesthesia Start Date: 10/21/24 Anesthesia Start Time: 07:25 Stop Date/Time Anesthesia Stop Date: 10/21/24 Anesthesia Stop Time: 09:58 Coding CPT Codes CPT Codes: ANESTH LOWER ARM SURGERY - 71652 ([id number]) P2 - PATIENT W/MILD SYST DISEASE, QK - PERFORMANCE TEST ARCHITECT 2-4 CNCRNT ANES PROC, QX - MOLECULAR PATHOLOGIST SVC W/ MD MED DIRECTION
--- NOTE | 2024-10-21 10:00 | W.ANESCHARGE ---
Anesthesia Charges Start Date/Time Anesthesia Start Date: 10/21/24 Anesthesia Start Time: 07:25 Stop Date/Time Anesthesia Stop Date: 10/21/24 Anesthesia Stop Time: 09:58 Coding CPT Codes CPT Codes: ANESTH LOWER ARM SURGERY - 72849 ([id number]) P2 - PATIENT W/MILD SYST DISEASE, QK - SHUTTLE PREPARATION SUPERVISOR 2-4 CNCRNT ANES PROC, QX - COMMERCIAL JOURNEYMAN ELECTRICIAN SVC W/ MD MED DIRECTION
--- NOTE | 2024-10-21 10:40 | P.ANES_ITS ---
Anesthesia Charges Start Date/Time Anesthesia Start Date: 10/21/24 Anesthesia Start Time: 07:25 Stop Date/Time Anesthesia Stop Date: 10/21/24 Anesthesia Stop Time: 09:58 Coding CPT Codes CPT Codes: ANESTH LOWER ARM SURGERY - 54994 ([id number]) P2 - PATIENT W/MILD SYST DISEASE, QK - TELEPATHIST 2-4 CNCRNT ANES PROC, QX - NATIONAL RECRUITER SVC W/ MD MED DIRECTION
--- NOTE | 2024-10-21 10:40 | W.ANESCHARGE ---
Anesthesia Charges Start Date/Time Anesthesia Start Date: 10/21/24 Anesthesia Start Time: 07:25 Stop Date/Time Anesthesia Stop Date: 10/21/24 Anesthesia Stop Time: 09:58 Coding CPT Codes CPT Codes: ANESTH LOWER ARM SURGERY - 03814 ([id number]) P2 - PATIENT W/MILD SYST DISEASE, QK - GEAR HOBBER OPERATOR 2-4 CNCRNT ANES PROC, QX - PATIENT FINANCIAL ADVOCATE SVC W/ MD MED DIRECTION
--- NOTE | 2024-10-21 10:40 | W.PM.NB ---
Nerve Block Nerve Block Time Seen by Provider: 07:21 Date Seen: 10/21/24 Type of block requested by surgeon for post-operative analgesia: axillary Side: right Time out performed: Yes Verification of patient name: Yes Verification of date of : Yes Site marking: site marked Name of person performing procedure: Issac Continuous monitoring Was continuous monitoring of O2 sat, B/P, aviation maintenance instructor, recorded every 15 minutes?: Yes Procedure Checklist: sterile prep, needles and gloves Ultrasound guided. Images saved: Yes Medications given in 5ml increments after negative aspiration: Ropivicaine %: 0.5 mL: 30 Needle gauge: 22 Patient tolerated procedure well: Yes Additional comments: Needle noted adjacent to nerve Block Charges Block Charge (with Pro Fee): Brachial Plexus Use of Ultrasound Machine for Block: Yes- US Guidance/pain block
== END 2024-10-21 10:45 | disposition home or self-care (01) ==
LOC: OR 06:05
PROVIDERS: PCP Student in an Organized Health Care Education/Training Program; Visit Provider Orthopaedic Surgery
PROC: (CPT 25575; principal; 2024-10-21 07:15)
DX: S52.571A Other intraarticular fracture of lower end of right radius, initial encounter for closed fracture (principal); G89.18 Other acute postprocedural pain; E10.9 Type 1 diabetes mellitus without complications
CPT/HCPCS: 25609; 01830; 64415; 73110; 76000; 76942; 82962; C1713; J0690; J2250; J2405; J2704; J2795; J3010; J7030

== ENCOUNTER 2025-01-18 07:30 | Outpatient (RCR) | payer OTHER, SELFPAY | END 2025-05-18 23:59 | disposition home or self-care (01) | PROVIDERS: PCP Student in an Organized Health Care Education/Training Program; Visit Provider Orthopaedic Surgery | DX: Z48.89 Encounter for other specified surgical aftercare (principal); S52.501A Unspecified fracture of the lower end of right radius, initial encounter for closed fracture; S52.601A Unspecified fracture of lower end of right ulna, initial encounter for closed fracture; Z98.890 Other specified postprocedural states; Z51.89 Encounter for other specified aftercare | CPT/HCPCS: 97110; 97140; 97165; X5282 ==